=== PATIENT | female | born 1945 | race Caucasian/White ===

== ENCOUNTER 2017-03-19 13:38 | Inpatient (IN) | payer MEDICAID, MEDICARE ==
--- NOTE | 2017-03-19 16:20 | RAD ---
Indication: Weakness and fatigue. Coronary artery disease and chronic obstructive pulmonary disease. Comparison: February 14, 2016 chest radiograph and February 15, 2016 CT. Technique: Upright AP 1545 hours Report: Mild prominence of the interstitial markings. Minimal bilateral midlung zone subsegmental atelectasis. Negative for pleural effusion or pneumothorax. Upper normal heart size. Unremarkable central pulmonary vasculature. IMPRESSION: Minimal bilateral subsegmental atelectasis. Resolution of previous pulmonary edema.
[2017-03-19 16:25] LABS: Hematocrit 23 % (35-47); Hemoglobin 6.9 g/dl (12.0-16.0); Mean Corpuscular HGB Conc 30 g/dl (31-36); Mean Corpuscular Hemoglobin 22 pg (27-31); Mean Corpuscular Volume 71 fL (80-97); Mean Platelet Volume 11 um3 (7.4-10.4); Red Blood Count 3.21 10^6/ul (4.0-5.4); Red Cell Distribution Width 17 % (10.5-15); White Blood Count 11.4 10^3/ul (3.5-10.8)
[2017-03-19 16:26] LABS: Add Diff/Slide Review? Slide Review Added; Comments Flag Yes
[2017-03-19 16:44] LABS: Troponin I 0.02 ng/mL (<0.04)
[2017-03-19 16:54] LABS: Hypochromasia 2+
[2017-03-19 16:55] LABS: Microcytosis 1+
[2017-03-19 17:04] LABS: ALT 7 U/L (7-52); AST 11 U/L (13-39); Alkaline Phosphatase 55 U/L (34-104); Anion Gap 6 mmol/L (2-11); Blood Urea Nitrogen 21 mg/dL (6-24); CO2 Carbon Dioxide 27 mmol/L (22-32); Calcium 9.6 mg/dL (8.6-10.3); Chloride 98 mmol/L (101-111); EGFR African American 47.9 (>60); EGFR Non-African American 37.3 (>60); Globulin 2.9 g/dL (2-4); Glucose 207 mg/dL (70-100); Potassium 4.2 mmol/L (3.5-5.0); Sodium 131 mmol/L (133-145); Total Protein 6.9 g/dL (6.4-8.9)
[2017-03-19 18:05] LABS: Urine Bacteria Absent (Absent); Urine Bilirubin Negative (Negative); Urine Glucose Negative (Negative); Urine Nitrite Negative (Negative)
[2017-03-19] MEDS ORDERED: Dextrose 50% Syringe 50 ML* 25 GM/50 ML SYRINGE IV PUSH PRN (20:30)
[2017-03-19] MEDS ORDERED: Albuterol HFA INHALER* 8 gm MDI INH PRN (20:30)
[2017-03-19] MEDS ORDERED: Albuterol 2.5 MG/3 ML NEB.SOL* (0.083%) INH PRN (20:30)
[2017-03-19] MEDS ORDERED: Fluticasone-Salmeterol 250-50* DISKUS INH SCH (21:00)
[2017-03-19 21:14] LABS: Total Iron Binding Capacity 475 mcg/dL (250-450); Transferrin 339 mg/dL (203-362)
[2017-03-19 21:20] LABS: Ferritin < 10.0 ng/mL (11-307)
[2017-03-19 21:23] LABS: Iron < 15 ug/dL (50-212)
--- NOTE | 2017-03-19 22:02 | ED ---
Jojo Betancur Alok, scribed for Owen Hayes MD on 03/19/17 at 1834 . Complex/Multi-Sys Presentation - HPI Summary HPI Summary: 71 y/o female presents to the ED for weakness, fatigue, and pallor for the past few days. Pt also c/o of tinnitus as well as SOB on and off and a slight cough. Pt denies hematochezia or dark stool although her last BM was 4 days ago. Pt has been eating little recently. Pt denies CP. Pt is not on blood thinners. Pt was last seen by her GI doctor who dx her with iron deficiency. Pt states she felt better after her last iron-transfusion. Pts family also state her vision has been worsening for the past few weeks. SHx includes tobacco smoker. FMHx includes anemia. - History Of Current Complaint Chief Complaint: EDWeakness Time Seen by Provider: 03/19/17 15:43 Hx Obtained From: Patient, Family/Algologist Onset/Duration: Lasting Days, Still Present Timing: Constant Severity Currently: Moderate Severity Initially: Moderate Associated Signs And Symptoms: Positive: Weakness, Other - Fatigue, Pallor. Negative: Chest Pain - Allergies/Home Medications Allergies/Adverse Reactions: Allergies Allergy/AdvReac Type Severity Reaction Status Date / Time Aspirin [ASA] Allergy Nausea And Verified 09/18/16 10:27 Vomiting Cephalosporins Allergy Unknown Verified 09/18/16 10:27 Reaction Details Codeine Allergy Unknown Verified 09/18/16 10:27 Reaction Details Metformin Allergy Nausea And Verified 09/18/16 10:27 Vomiting Penicillins [PCN] Allergy Unknown Verified 09/18/16 10:27 Reaction Details PMH/Surg Hx/FS Hx/Imm Hx Endocrine/Hematology History: Reports: Hx Diabetes Denies: Hx Thyroid Disease Cardiovascular History: Reports: Hx Angina, Hx Cardiac Arrest, Hx Coronary Artery Disease, Hx Hypercholesterolemia, Hx Hypertension, Hx Myocardial Infarction Denies: Hx Congestive Heart Failure, Hx Peripheral Vascular Disease, Hx Valvular Heart Disease Respiratory History: Reports: Hx Asthma, Hx Chronic Obstructive Pulmonary Disease (COPD), Other Respiratory Problems/Disorders - RESP FAILURE 02/2016 GI History: Reports: Hx Gastrointestinal Bleed, Hx Ulcer History: Denies: Hx Renal Disease Musculoskeletal History: Denies: Hx Arthritis, Hx Osteoporosis Sensory History: Denies: Hx Cataracts, Hx Glaucoma Opthamlomology History: Denies: Hx Cataracts, Hx Glaucoma Neurological History: Denies: Hx Headaches, Hx Seizures, Hx Transient Ischemic Attacks (TIA) - Surgical History Surgery Procedure, Year, and Place: Appendectomy as a child. Hysterectomy. Tonsilectomy. Cardiac stents x3 (patient states about 10 years ago) Hx Anesthesia Reactions: No Infectious Disease History: No Infectious Disease History: Denies: Hx Hepatitis, Hx Human Immunodeficiency Virus (HIV), Hx Known/ Suspected VRE, Hx Known/Suspected VRSA, Traveled Outside the [place] in Last 30 Days - Family History Known Family History: Positive: Blood Disorder - anemia - Social History Occupation: Retired Alcohol Use: None Hx Substance Use: No Substance Use Type: Reports: None Hx Tobacco Use: Yes Smoking Status (MU): Light Every Day Tobacco Smoker Type: Cigarettes Amount Used/How Often: 1PPD PRIOR TO JANUARY 2016 Length of Time of Smoking/Using Tobacco: APPROX 50 YEARS Have You Smoked in the Last Year: Yes Review of Systems Positive: Fatigue, Other - Pallor. Negative: Fever, Chills Negative: Erythema Negative: Sore Throat Negative: Chest Pain Positive: Shortness Of Breath, Cough Negative: Abdominal Pain, Vomiting, Nausea Negative: dysuria, hematuria Negative: Myalgia, Edema Negative: Rash Neurological: Other - Negative: Dizziness Positive: Weakness All Other Systems Reviewed And Are Negative: Yes Physical Exam - Summary Physical Exam Summary: Constitutional: Well-developed, Well-nourished, Alert. (-) Distressed Skin: Warm, Dry HENT: Normocephalic; Atraumatic Eyes: Conjunctiva normal Neck: Musculoskeletal ROM normal neck. (-) JVD, (-) Stridor, (-) Tracheal deviation Cardio: Rhythm regular, rate normal, Heart sounds normal; Intact distal pulses; The pedal pulses are 2+ and symmetric. Radial pulses are 2+ and symmetric. (-) Murmur Pulmonary/Chest wall: Effort normal. (-) Respiratory distress, (-) Wheezes, (-) Rales Abd: Soft, (-) Tenderness, (-) Distension, (-) Guarding, (-) Rebound Musculoskeletal: (-) Edema Lymph: (-) Cervical adenopathy Neuro: Alert, Oriented x3 Psych: Mood and affect Normal Digital Rectal Exam: Bloody Stool present Vital Signs On Initial Exam: Initial Vitals Temp Pulse Resp BP Pulse Ox 98.5 F 68 20 153/63 100 03/19/17 13:42 03/19/17 13:42 03/19/17 13:42 03/19/17 13:42 03/19/17 13:42 - [place] Coma Scale Coma Scale Total: 15 Diagnostics - Vital Signs Vital Signs Temp Pulse Resp BP Pulse Ox 03/19/17 17:00 64 16 97 03/19/17 16:16 37 89 03/19/17 15:18 97.3 F 64 20 114/51 100 03/19/17 13:43 98.5 F 70 20 153/63 100 03/19/17 13:42 98.5 F 68 20 153/63 100 - Laboratory Lab Results: Lab Results 03/19/17 03/19/17 03/19/17 Range/Units 16:10 16:10 16:10 WBC 11.4 H (3.5-10.8) 10^3/ul RBC 3.21 L (4.0-5.4) 10^6/ul Hgb 6.9 L (12.0-16.0) g/dl Hct 23 L (35-47) % MCV 71 L (80-97) fL MCH 22 L (27-31) pg MCHC 30 L (31-36) g/dl RDW 17 H (10.5-15) % Plt Count 364 (150-450) 10^3/ul MPV 11 H (7.4-10.4) um3 Neut % (Auto) 76.0 (38-83) % Lymph % (Auto) 14.0 L (25-47) % Gila % (Auto) 7.3 (1-9) % Eos % (Auto) 1.1 (0-6) % Baso % (Auto) 1.6 (0-2) % Absolute Neuts (auto) 8.7 H (1.5-7.7) 10^3/ul Absolute Lymphs (auto) 1.6 (1.0-4.8) 10^3/ul Absolute Monos (auto) 0.8 (0-0.8) 10^3/ul Absolute Eos (auto) 0.1 (0-0.6) 10^3/ul Absolute Basos (auto) 0.2 (0-0.2) 10^3/ul Absolute Nucleated RBC 0 10^3/ul Nucleated RBC % 0 Normal RBC Morphology Not Reportable Hypochromasia 2+ Microcytosis 1+ Elliptocytes 1+ INR (Anticoag Therapy) 0.98 (0.89-1.11) APTT 30.1 (26.0-36.3) seconds Sodium 131 L (133-145) mmol/L Potassium 4.2 (3.5-5.0) mmol/L Chloride 98 L (101-111) mmol/L Carbon Dioxide 27 (22-32) mmol/L Anion Gap 6 (2-11) mmol/L BUN 21 (6-24) mg/dL Creatinine 1.40 H (0.51-0.95) mg/dL Est GFR ( Amer) 47.9 (>60) Est GFR (Non-Af Amer) 37.3 (>60) BUN/Creatinine Ratio 15.0 (8-20) Glucose 207 H (70-100) mg/dL Lactic Acid (0.5-2.0) mmol/L Calcium 9.6 (8.6-10.3) mg/dL Total Bilirubin 0.40 (0.2-1.0) mg/dL AST 11 L (13-39) U/L ALT 7 (7-52) U/L Alkaline Phosphatase 55 (34-104) U/L Troponin I 0.02 (<0.04) ng/mL Total Protein 6.9 (6.4-8.9) g/dL Albumin 4.0 (3.2-5.2) g/dL Globulin 2.9 (2-4) g/dL Albumin/Globulin Ratio 1.4 (1-3) Urine Color Urine Appearance Urine pH (5-9) Ur Specific [place] (1.010-1.030) Urine Protein (Negative) Urine Ketones (Negative) Urine Blood (Negative) Urine Nitrate (Negative) Urine Bilirubin (Negative) Urine Urobilinogen (Negative) Ur Leukocyte Esterase (Negative) Urine WBC (Auto) (Absent) Urine RBC (Auto) (Absent) Ur Squamous Epith Cells (Absent) Urine Bacteria (Absent) Urine Glucose (Negative) Blood Type Antibody Screen Crossmatch 03/19/17 03/19/17 03/19/17 Range/Units 16:10 16:10 17:45 WBC (3.5-10.8) 10^3/ul RBC (4.0-5.4) 10^6/ul Hgb (12.0-16.0) g/dl Hct (35-47) % MCV (80-97) fL MCH (27-31) pg MCHC (31-36) g/dl RDW (10.5-15) % Plt Count (150-450) 10^3/ul MPV (7.4-10.4) um3 Neut % (Auto) (38-83) % Lymph % (Auto) (25-47) % Gila % (Auto) (1-9) % Eos % (Auto) (0-6) % Baso % (Auto) (0-2) % Absolute Neuts (auto) (1.5-7.7) 10^3/ul Absolute Lymphs (auto) (1.0-4.8) 10^3/ul Absolute Monos (auto) (0-0.8) 10^3/ul Absolute Eos (auto) (0-0.6) 10^3/ul Absolute Basos (auto) (0-0.2) 10^3/ul Absolute Nucleated RBC 10^3/ul Nucleated RBC % Normal RBC Morphology Hypochromasia Microcytosis Elliptocytes INR (Anticoag Therapy) (0.89-1.11) APTT (26.0-36.3) seconds Sodium (133-145) mmol/L Potassium (3.5-5.0) mmol/L Chloride (101-111) mmol/L Carbon Dioxide (22-32) mmol/L Anion Gap (2-11) mmol/L BUN (6-24) mg/dL Creatinine (0.51-0.95) mg/dL Est GFR ( Amer) (>60) Est GFR (Non-Af Amer) (>60) BUN/Creatinine Ratio (8-20) Glucose (70-100) mg/dL Lactic Acid 1.1 (0.5-2.0) mmol/L Calcium (8.6-10.3) mg/dL Total Bilirubin (0.2-1.0) mg/dL AST (13-39) U/L ALT (7-52) U/L Alkaline Phosphatase (34-104) U/L Troponin I (<0.04) ng/mL Total Protein (6.4-8.9) g/dL Albumin (3.2-5.2) g/dL Globulin (2-4) g/dL Albumin/Globulin Ratio (1-3) Urine Color Straw Urine Appearance Clear Urine pH 6.0 (5-9) Ur Specific [place] 1.003 L (1.010-1.030) Urine Protein Negative (Negative) Urine Ketones Negative (Negative) Urine Blood 1+ H (Negative) Urine Nitrate Negative (Negative) Urine Bilirubin Negative (Negative) Urine Urobilinogen Negative (Negative) Ur Leukocyte Esterase Trace H (Negative) Urine WBC (Auto) Trace(0-5/hpf) (Absent) Urine RBC (Auto) Trace(0-2/hpf) (Absent) Ur Squamous Epith Cells Present H (Absent) Urine Bacteria Absent (Absent) Urine Glucose Negative (Negative) Blood Type B Positive Antibody Screen Pending Crossmatch See Detail Result Diagrams: 03/19/17 16:10 03/19/17 16:10 Lab Statement: Any lab studies that have been ordered have been reviewed, and results considered in the medical decision making process. - Radiology CXR Xray Interpretation: Positive (See Comments) - IMPRESSION: Minimal bilateral subsegmental atelectasis. Resolution of previous pulmonary edema. Radiology Interpretation Completed By: Radiologist - EKG 1348 Cardiac Rate: NL - 72 bpm EKG Interpretation: No STEMI. T-wave inversions/ST depression unchanged from 2016 Complex Multi-Symp Course/Dx Course Of Treatment: Stool guaiac negative. - Diagnoses Provider Diagnoses: Symptomatic anemia - Physician Notifications Discussed Care Of Patient With: Dr. Huitron (Hospitalist) @ 1924 - Will admit pt Discharge - Discharge Plan Condition: Stable Disposition: ADMITTED TO [facility] Referrals: Nathan Lopez MD [Primary Care Provider] - The documentation as recorded by the Jojo mejia Alok accurately reflects the service I personally performed and the decisions made by me, Owen Hayes MD.
--- NOTE | 2017-03-19 23:09 | HP ---
HOSPITAL MEDICINE HISTORY AND PHYSICAL: DATE OF ADMISSION: 03/19/17 PRIMARY CARE PHYSICIAN: Dr. Lopez. ATTENDING PHYSICIAN: Dr. Aj Mota*(dictation provided by Cinthya Scott NP). CHIEF COMPLAINT: Weakness and "not feeling well." HISTORY OF PRESENT ILLNESS: Ms. Rao is a 71-year-old female with a past medical history of LA with stent placement, noninsulin dependent diabetes, hypertension, COPD and chronic anemia without a clear source of bleeding who presents to the hospital with concern for lightheadedness and not feeling well. Ms. Rao has a chronic anemia. Her last known hemoglobin from our record was from 04/06/16 at which time it was 8.1. This is fairly consistent where she had been across the 2016 which she ran somewhere between 7 and 10. She was seen here at our hospital and had an EGD on 02/07/16, a colonoscopy on 02/23/16 and a gastroscopy on 09/13/16. No clear leading sources were found. The patient did have some gastritis. This certainly did not explain the level of her anemia. The patient was placed on iron therapy, but she did not tolerate that well and then went on take iron IV. She said she had 2 outpatient effusions of iron. Her last check for her hemoglobin was in November with Dr. Lopez. She said she can quite quite remember exactly but thinks that Dr. Lopez mentioned that her hemoglobin was a little bit down. She has not followed up recently with any laboratory checks or any IV infusions. She denies any dark tarry stools. She has had no vomiting. No blood in the stool at all. She reports that she was feeling her normal state of health until Sunday when she started to just feel unwell. She reports being lightheaded and little bit dizzy at times. She states she does not really feel these symptoms at rest, but does feel them when she gets up to move around. She also reports shortness of breath but states that this is at baseline. She denies chest pain. She denies nausea or abdominal pain. She states she is constipated at baseline with the last bowel movement last week. In the emergency room, Ms. Gannon had a hemoglobin, which was 6.9 and again her last hemoglobin was 8.1. Her creatinine is up a tiny bit from her last visit at 1.40. The remainder of her workup is unremarkable. PAST MEDICAL HISTORY: 1. Type 2 diabetes, noninsulin dependent. 2. Non-ST elevation LA. 3. Coronary artery disease with stent x3 over 10 years ago. 4. Hypertension. 5. Hyperlipidemia. 6. COPD. PAST SURGICAL HISTORY: 1. Tonsillectomy. 2. Appendectomy. 3. Hysterectomy for fibroid uterus. MEDICATIONS: 1. Aspirin 81 mg p.o. daily. 2. Glipizide 2.5 mg p.o. daily. 3. Albuterol nebulizer p.r.n. 4. Albuterol metered dose inhaler p.r.n. 5. Atorvastatin 10 mg p.o. daily. 6. Fluticasone/salmeterol 250/50 one puff inhaled b.i.d. 7. Furosemide 40 mg p.o. daily. 8. Lisinopril 20 mg p.o. daily. 9. Pantoprazole 40 mg p.o. daily. 10. Spironolactone 25 mg p.o. daily. ALLERGIES: ASPIRIN, CEPHALOSPORINS, CODEINE, METFORMIN and PENICILLINS. FAMILY HISTORY: The patient reports her mother at age 90. She had heart disease and she was anemic. She did have a tumor on her pancreas as well. Father had supranuclear palsy and in his 90s. SOCIAL HISTORY: The patient is a continued smoker. She says she does not smoke everyday but she smoked since she was a teenager. She denies any alcohol or drug abuse. She lives alone. She states that her daughter, Teresa, would be her healthcare proxy. REVIEW OF SYSTEMS: A 14-point review of systems was completed with Ns. Rao and all those not mentioned above were negative. PHYSICAL EXAMINATION GENERAL: Ms. Rao is sitting in the bed. She is in no acute distress. She is calm and cooperative with my examination. VITAL SIGNS: Temperature 97.3, heart rate 65, respiratory rate 18, O2 saturation 100% on room air, blood pressure 103/46. LUNGS: Clear to auscultation bilaterally with no accessory muscle use and good aeration. HEART: S1, S2. No murmur, rub or gallop and regular. ABDOMEN: Soft, nontender with bowel sounds positive x4. EXTREMITIES: No cyanosis or edema. NEUROLOGIC: She is alert. She is oriented x3. She moves all extremities equally. There is no facial asymmetry or focal weakness. Extraocular movements are intact. SKIN: Intact. DIAGNOSTIC STUDIES/LABORATORY DATA: WBC 11.4, hemoglobin 6.9, hematocrit 23, platelet count 364. INR 0.98. Sodium 131, potassium 4.2, chloride 98, serum bicarbonate 27, BUN 21, creatinine 1.40, glucose 207. Urine shows trace leuk esterase but no bacteria and positive for squamous cells. Chest x-ray shows no acute intrathoracic process. EKG shows a sinus rhythm. He does have T-wave inversions most notably in the V leads, but this is unchanged from previous. ASSESSMENT: Ms. Rao is a 71-year-old female with a past medical history of noninsulin dependent diabetes, coronary artery disease with stent placement and chronic obstructive pulmonary disease as well as ongoing chronic anemia of unclear etiology who presents to the hospital today with worsening anemia, which is symptomatic with lightheadedness. Our plans are for observation in the hospital for the followin. Symptomatic anemia. The patient's lightheadedness is likely related to her hemoglobin being low today at 6.9. I do not see any ultimate cause for her vague symptoms of feeling unwell and feeling lightheaded with mobility. Our plans will be to transfuse 1 unit of packed red blood cells. Also check her orthostatic vital signs. Her blood pressures are little on the lower side. Plan to hold lisinopril, spironolactone and Lasix. The patient did have a guaiac stool, which was negative but given her severe constipation, I questioned the adequacy of the sample and will seek to obtain a second sample if the patient actually has a bowel movement. The patient has had extensive workup with multiple endoscopies just last year and I am not sure that further endoscopies would be revealing but depending on clinical course, we can involve Gastroenterology again tomorrow for their recommendations. However, I think if the patient is asymptomatic, she can be discharged home to follow up with them outpatient and likely to resume iron supplementation. 2. Diabetes. Plan to hold glipizide and she will have lispro sliding scale insulin with consistent carbohydrate diet. 3. Hypertension. Again, the patient's blood pressure is running relatively low with a systolic in the 90s to 100s. Plan to hold her blood pressure medications and this can be resumed tomorrow if she is more stable. We will give her normal saline in addition to her 1 L of blood given her elevated creatinine and low blood pressure. 4. Acute kidney injury. The patient's creatinine is up baseline to 1.4, but she has not had it checked in about a year. Plan to hydrate and recheck in the a.m. 5. Chronic obstructive pulmonary disease. No evidence of exacerbation. Plan to continue nebulizers and metered dose inhaler as well as her fluticasone/ salmeterol. 6. DVT prophylaxis with SCDs only in this patient with concern of bleeding. 7. Coronary artery disease. Plan to hold aspirin, metoprolol, and lisinopril in the setting of concern for bleeding and hypotension. 8. Code status is full code. TIME SPENT: Approximately 60 minutes were spent on the admission of this patient, more than half time spent with her at the bedside reviewing the events leading up to this hospitalization, performing the physical examination, and reviewing the plan of care. CINTHYA SCOTT NP CC: Dr. Lopez* [id number]/CPS #: [id number] [place]
[2017-03-19] MEDS: NS 0.9% 1000 ML* 1,000 ML IV SCH (23:13)
[2017-03-20 05:02] LABS: Hematocrit 24 % (35-47); Hemoglobin 7.5 g/dl (12.0-16.0)
[2017-03-20 05:09] LABS: Comments Flag Yes
[2017-03-20 05:17] LABS: BUN/Creatinine Ratio 16.4 (8-20); EGFR African American 47.9 (>60); EGFR Non-African American 37.3 (>60); Potassium 4.1 mmol/L (3.5-5.0)
[2017-03-20] MEDS: NS 0.9% 1000 ML* 1,000 ML IV SCH ×2 (07:30→16:22)
[2017-03-20] MEDS ORDERED: Lisinopril TAB* 10 MG PO SCH (09:00)
[2017-03-20] MEDS ORDERED: Furosemide TAB* 40 MG PO SCH (09:00)
[2017-03-20] MEDS: Mometasone/Formoter 200/5 MDI INH SCH ×2 (09:17→22:09)
[2017-03-20] MEDS: Insulin LISPRO* 1 UNITS UNIT SUBCUT SCH ×3 (09:59→17:25)
[2017-03-20] MEDS: Omeprazole CAP* 20 MG PO SCH (10:00)
[2017-03-20] MEDS: Atorvastatin* 10 MG TAB PO SCH (10:00)
--- NOTE | 2017-03-20 14:45 | PN ---
Subjective Date of Service: 03/20/17 Interval History: Patient seen and examined at bedside. Pt states that she feels a little better today, but continues to have lightheadedness and shortness of breath when she gets up. She also feels like she may be getting a chest cold, and reports a cough that is non-productive. Denies fever, chills, chest discomfort, N/V/D. Pt denies any signs of bleeding, such as rectal bleeding, vaginal bleeding, or bloody nose. Pt denies recent travel. Tele: Sinus rhythm, rate 70-80's. Family History: Unchanged from Admission Social History: Unchanged from Admission Past Medical History: Unchanged from Admission Objective Active Medications: Albuterol (Ventolin 2.5 Mg/3 Ml Neb.Lucrecia*) 1.25 mg INH Q4HR PRN Reason: SOB/ WHEEZING Albuterol (Ventolin Hfa Inhaler*) 2 puff INH Q6H PRN Reason: SOB/WHEEZING Atorvastatin Calcium (Lipitor*) 10 mg PO DAILY [facility] Dextrose (D50w Syringe 50 Ml*) 12.5 gm IV PUSH .FOR FS < 60 - SS PRN Reason: FS < 60 Sodium Chloride (Ns 0.9% 1000 Ml*) 1,000 mls @ 125 mls/hr IV PER RATE [facility] Insulin Human Lispro (Humalog*) 0 units SUBCUT AC [facility] Reason: Protocol Mometasone Furoate/Formoterol Fumar (Dulera 200/5 Mdi*) 2 puff INH BID RASHAAD Omeprazole (Prilosec Cap*) 20 mg PO DAILY@0730 [facility] Vital Signs 03/19/17 03/19/17 03/19/17 20:30 21:00 21:30 Temperature Pulse Rate 65 65 65 Respiratory 19 20 17 Rate Blood Pressure 105/59 95/67 111/49 (mmHg) O2 Sat by Pulse 100 99 99 Oximetry 03/19/17 03/19/17 03/20/17 21:45 23:33 00:00 Temperature 98.1 F 97.9 F 97.8 F Pulse Rate 69 73 78 Respiratory 16 20 22 Rate Blood Pressure 124/51 110/55 107/45 (mmHg) O2 Sat by Pulse 99 98 97 Oximetry 03/20/17 03/20/17 03/20/17 02:30 03:25 04:45 Temperature 97.9 F 98.6 F 98.5 F Pulse Rate 76 86 80 Respiratory 20 16 16 Rate Blood Pressure 112/48 121/53 127/48 (mmHg) O2 Sat by Pulse 95 96 98 Oximetry 03/20/17 03/20/17 03/20/17 04:48 04:49 07:39 Temperature 99.0 F Pulse Rate 84 87 79 Respiratory 16 Rate Blood Pressure 140/64 149/54 131/52 (mmHg) O2 Sat by Pulse 97 Oximetry 03/20/17 03/20/17 09:18 12:01 Temperature 97.6 F Pulse Rate 80 76 Respiratory 20 16 Rate Blood Pressure 137/49 (mmHg) O2 Sat by Pulse 97 99 Oximetry Oxygen Devices in Use Now: None Appearance: NAD, laying in bed Eyes: No Scleral Icterus, PERRLA Ears/Nose/Mouth/Throat: Mucous Membranes Moist Respiratory: Symmetrical Chest Expansion and Respiratory Effort, Clear to Auscultation Cardiovascular: NL Sounds; No Murmurs; No JVD, RRR Abdominal: NL Sounds; No Tenderness; No Distention Extremities: No Edema Result Diagrams: 03/20/17 04:14 03/20/17 04:14 Additional Lab and Data: Assess/Plan/Problems-Billing Assessment: Ms. Rao is a 71 yo female with PMH significant for DM< CAD, COPD and chronic anemia who presented to the emergency room for weakness and was found to have worsening anemia. - Patient Problems (1) Microcytic anemia Code(s): D50.9 - IRON DEFICIENCY ANEMIA, UNSPECIFIED SNOMED Code(s): 389342171 Comment: - Acute on Chronic SPRING, unclear etiology - Last HH from PCP 11/28/16 - - Received 1 unit RBCs - Pt continues to be symptomatic with lightheadedness and mild shortness of breath - Denies signs of bleeding - GI consult pending - Will give another unit of RBCs today and IV Venofer (2) Chronic kidney disease (CKD) Code(s): N18.9 - CHRONIC KIDNEY DISEASE, UNSPECIFIED SNOMED Code(s): 228137914 Comment: - Creatinine 1.4 - Labs from PCP show creatinine 1.5 11/2016 - Suspect Pt is at her new baseline (3) Constipation Code(s): K59.00 - CONSTIPATION, UNSPECIFIED SNOMED Code(s): 49169292 Comment: - Bowel regime (4) Type 2 diabetes mellitus Comment: - Hold glipizide - Continue lispro SS and monitor. (5) HTN (hypertension) Code(s): I10 - ESSENTIAL (PRIMARY) HYPERTENSION SNOMED Code(s): 65988344 Comment: - Normotensive - Resume lisinopril in the AM (6) CAD (coronary artery disease) Code(s): I25.10 - ATHSCL HEART DISEASE OF [place] CORONARY ARTERY W/O ANG PCTRS SNOMED Code(s): 73383682 Comment: - Continue Atorvastatin and Metolprolol - Continue to hold ASA in setting of possible bleeding (7) COPD (chronic obstructive pulmonary disease) Code(s): J44.9 - CHRONIC OBSTRUCTIVE PULMONARY DISEASE, UNSPECIFIED SNOMED Code(s): 51656526 Comment: - No ecidence of exacerbation at this time - Continue Dulera and Spiriva with PRN Albuterol. (8) Congestive heart failure (CHF) Code(s): I50.9 - HEART FAILURE, UNSPECIFIED SNOMED Code(s): 70659980 Comment: - EF > 65% 02/2016 - Diuresis on hold due to hypotension - Will resume spironolactone and furosemide in AM if blood pressures allow - Strict I+O and daily weights (9) DVT prophylaxis Code(s): ELX8537 - SNOMED Code(s): 269997393 Comment: - Pharmacological prophylaxis contraindicated in the setting of possible bleeding - SCD to bilateral LE. - Encourage ambulation. (10) Full code status Code(s): Z78.9 - OTHER SPECIFIED HEALTH STATUS SNOMED Code(s): 808801462 Status and Disposition: OBV to Inpatient. Pt continues to need further work up for her anemia. Discharge to home when medically stable.
[2017-03-20] MEDS ORDERED: Polyethylene Glycol 3350* 17 GM PACKET PO PRN (15:50)
[2017-03-20] MEDS ORDERED: Iron Sucrose* 200 MG in NS 0.9% 250 ML* 250 ML IVPB ONE (16:00)
[2017-03-20] MEDS ORDERED: Spironolactone TAB* 25 MG PO SCH (16:00)
[2017-03-20] MEDS: Magnesium Hydroxide LIQ* 30 ML UDC PO PRN (16:20)
[2017-03-20] MEDS ORDERED: Spiriva Inhaler DEVICE* 1 EACH DEVICE INH ONE (18:00)
[2017-03-20] MEDS: Metoprolol Tartrate TAB* 50 mg PO SCH (20:31)
[2017-03-21 04:52] LABS: Hematocrit 26 % (35-47); Hemoglobin 8.2 g/dl (12.0-16.0)
[2017-03-21 05:02] LABS: BUN/Creatinine Ratio 21.3 (8-20); EGFR African American 64.7 (>60); EGFR Non-African American 50.3 (>60); Potassium 4.3 mmol/L (3.5-5.0)
[2017-03-21] MEDS: Mometasone/Formoter 200/5 MDI INH SCH ×2 (07:48→20:38)
[2017-03-21] MEDS: Tiotropium CAP.INH* CAP.INH/18 MCG INH SCH (07:49)
[2017-03-21] MEDS ORDERED: Ondansetron INJ* 2 MG/ML VIAL IV PRN (08:06)
[2017-03-21] MEDS: Insulin LISPRO* 1 UNITS UNIT SUBCUT SCH ×3 (08:38→16:42)
[2017-03-21] MEDS: Atorvastatin* 10 MG TAB PO SCH (08:41)
[2017-03-21] MEDS: Furosemide TAB* 40 MG PO SCH (08:41)
[2017-03-21] MEDS: Metoprolol Tartrate TAB* 50 mg PO SCH ×2 (08:41→19:55)
[2017-03-21] MEDS: Lisinopril TAB* 10 MG PO SCH (08:41)
[2017-03-21] MEDS: Omeprazole CAP* 20 MG PO SCH (08:41)
--- NOTE | 2017-03-21 10:32 | CONS ---
CONSULTATION REPORT: DATE OF CONSULT: 03/21/17 REASON FOR CONSULT: Iron-deficiency anemia. NARRATIVE: Ms. Rao is a 71-year-old woman with a history of coronary disease, on the baby aspirin; COPD with active tobacco use; and diabetes. She was first noted about a year ago to be anemic when she presented with what seemed to be a GI bleed. In January 2016, she underwent an upper endoscopy, which showed duodenal ulcers. Despite proper treatment with PPIs, she remained anemic. She thereafter last year underwent a colonoscopy where a small polyp was removed, but no other abnormality was detected. She was last seen in my office in August 2016 when arrangements were made for her to get IV iron as she was intolerant to p.o. iron. She states that she got 2 infusions, felt quite good, and had no subsequent infusions. 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 However, in the last several weeks, she has had progressive fatigue and some shortness of breath. She presented to our institution 2 days ago with a hemoglobin of 6.9. Other pertinent data on this admission included iron saturation of 3%, ferritin less than 10, MCV of 71. She has been transfused 2 units of packed red blood cells and on followup blood tests this morning, her hemoglobin is 8.2. She had a stool that was Hemoccult negative. She states that she has been constipated and has not noticed any black stools or rectal bleeding. She denies any abdominal pain, NSAID use, and her only antiplatelet agent has been a baby aspirin. PAST MEDICAL HISTORY: Does include coronary artery disease with stents years ago, diabetes, tobacco use, COPD, obesity, and hypertension. PAST SURGICAL HISTORY: Includes a hysterectomy and appendectomy. ADMISSION MEDICINES: 1. Baby aspirin. 2. Glipizide. 3. Albuterol inhaler as needed. 4. Atorvastatin. 5. Fluticasone as needed. 6. Lasix. 7. Lisinopril. 8. Pantoprazole. 9. Spironolactone. FAMILY HISTORY: Notable for mother with pancreatic cancer, but no other GI malignancies. REVIEW OF SYSTEMS: Her weight and appetite have been good. She denies any heartburn, dysphagia, nausea, or vomiting. PHYSICAL EXAMINATION: General: She is an elderly woman, looking older than stated age, obese, but in no acute distress. Vital signs: Temperature is 98.8 , blood pressure 180/71, and heart rate is 85 and regular. She is mildly pale. There are no telangiectasias. Lungs reveal some expiratory wheezing. Cardiac exam reveals distant heart sounds, but a regular rhythm. Abdomen is obese and soft without any siobhan tenderness. DIAGNOSTIC STUDIES/LAB DATA: Additional data includes a platelet count of 364, 000. INR 0.98. BUN of 23 and creatinine of 1.4. Albumin of 4. IMPRESSION: A 71-year-old woman with a persistent iron-deficiency anemia, periodically requiring transfusion with no discernible cause on fairly recent upper endoscopy and colonoscopy. She is currently guaiac-negative, but has been guaiac- positive in the past. A strong possibility would be a small bowel source for GI blood loss either AVM, polyp or growth and that was discussed with the patient. I do believe the next appropriate step would be capsule endoscopy study and I have explained that to the patient including risks such as pill non-passage. She would be accepting of this. I would recommend discharge and scheduling a pill endoscopy to be done as an outpatient and our office will contact her to arrange that. CC: Nathan Lopez MD* [id number]/CPS #: [id number] [place]
--- NOTE | 2017-03-21 11:45 | PN ---
Subjective Date of Service: 03/21/17 Interval History: Patient seen and examined at bedside. Pt states that she continues to intermittent dizziness when up, but this has improved. Also reports mild shortness of breath, similar to her baseline. Denies fever, chills, chest discomfort, V/D. Pt continues to report nausea and constipation. Pt encouraged to take bowel medication. Tele: Sinus rhythm w/ PVCs, rate 70-80's. Family History: Unchanged from Admission Social History: Unchanged from Admission Past Medical History: Unchanged from Admission Objective Active Medications: Albuterol (Ventolin 2.5 Mg/3 Ml Neb.Lucrecia*) 1.25 mg INH Q4HR PRN Reason: SOB/ WHEEZING Albuterol (Ventolin Hfa Inhaler*) 2 puff INH Q6H PRN Reason: SOB/WHEEZING Atorvastatin Calcium (Lipitor*) 10 mg PO DAILY [facility] Dextrose (D50w Syringe 50 Ml*) 12.5 gm IV PUSH .FOR FS < 60 - SS PRN Reason: FS < 60 Furosemide (Lasix Tab*) 40 mg PO DAILY [facility] Insulin Human Lispro (Humalog*) 0 units SUBCUT AC [facility] Reason: Protocol Lisinopril (Prinivil Tab*) 20 mg PO DAILY [facility] Magnesium Hydroxide (Milk Of Magnesia Liq*) 30 ml PO Q6H PRN Reason: CONSTIPATION Metoprolol Tartrate (Lopressor Tab*) 50 mg PO BID [facility] Mometasone Furoate/Formoterol Fumar (Dulera 200/5 Mdi*) 2 puff INH BID [facility] Omeprazole (Prilosec Cap*) 20 mg PO DAILY@0730 [facility] Ondansetron HCl (Zofran Inj*) 4 mg IV Q6H PRN Reason: NAUSEA Polyethylene Glycol/Electrolytes (Miralax*) 17 gm PO DAILY PRN Reason: CONSTIPATION Spironolactone (Aldactone Tab*) 25 mg PO 1600 [facility] Tiotropium [place] (Spiriva Cap.Inh*) 1 cap INH DAILY [facility] Vital Signs 03/20/17 03/20/17 03/20/17 18:31 19:26 20:00 Temperature 99.0 F 98.8 F Pulse Rate 78 73 Respiratory 16 18 18 Rate Blood Pressure 149/57 130/54 (mmHg) O2 Sat by Pulse 99 98 Oximetry 03/20/17 03/21/17 03/21/17 23:45 04:00 05:41 Temperature 99.0 F 98.6 F Pulse Rate 77 83 84 Respiratory 24 16 25 Rate Blood Pressure 157/58 168/77 170/90 (mmHg) O2 Sat by Pulse 94 93 93 Oximetry 03/21/17 03/21/17 07:10 07:57 Temperature 98.8 F Pulse Rate 91 Respiratory 16 17 Rate Blood Pressure 180/71 (mmHg) O2 Sat by Pulse 92 Oximetry Oxygen Devices in Use Now: None Appearance: NAD, laying in bed Eyes: No Scleral Icterus, PERRLA Ears/Nose/Mouth/Throat: Mucous Membranes Moist Respiratory: Symmetrical Chest Expansion and Respiratory Effort, Clear to Auscultation - , diminished Cardiovascular: NL Sounds; No Murmurs; No JVD, RRR Abdominal: NL Sounds; No Tenderness; No Distention Extremities: No Edema Skin: No Rash or Ulcers Neurological: Alert and Oriented x 3, NL Muscle Strength and Tone Lines/Tubes/Other Access: Clean, Dry and Intact Peripheral IV - site benign Nutrition: Taking PO's Result Diagrams: 03/21/17 16:09 03/21/17 04:11 Additional Lab and Data: Microbiology and Other Data: Microbiology 03/20/17 19:39 Transfusion Reaction Culture - Preliminary Blood Bag Culture Under Incubation Transfusion Reaction Gram Stain - Final Assess/Plan/Problems-Billing Assessment: Ms. Rao is a 71 yo female with PMH significant for DM< CAD, COPD and chronic anemia who presented to the emergency room for weakness and was found to have worsening anemia. - Patient Problems (1) Microcytic anemia Code(s): D50.9 - IRON DEFICIENCY ANEMIA, UNSPECIFIED SNOMED Code(s): 623040704 Comment: - Acute on Chronic, unclear etiology - Last HH from PCP 11/28/16 - - Received 2 unit RBCs - Pt continues to be symptomatic with lightheadedness and mild shortness of breath, improved - No signs of bleeding - GI consult, appreciate input - IV Venofer (2) Chronic kidney disease (CKD) Code(s): N18.9 - CHRONIC KIDNEY DISEASE, UNSPECIFIED SNOMED Code(s): 776564704 Comment: - Creatinine 1.4 - Labs from PCP show creatinine 1.5 11/2016 - Suspect Pt is at her new baseline (3) Constipation Code(s): K59.00 - CONSTIPATION, UNSPECIFIED SNOMED Code(s): 75202668 Comment: - Bowel regime (4) Type 2 diabetes mellitus Comment: - Hold glipizide - Continue lispro SS and monitor. (5) HTN (hypertension) Code(s): I10 - ESSENTIAL (PRIMARY) HYPERTENSION SNOMED Code(s): 96680407 Comment: - Hypertensive - Resume lisinopril (6) CAD (coronary artery disease) Code(s): I25.10 - ATHSCL HEART DISEASE OF [place] CORONARY ARTERY W/O ANG PCTRS SNOMED Code(s): 38648271 Comment: - Continue Atorvastatin and Metolprolol - Continue to hold ASA in setting of possible bleeding (7) COPD (chronic obstructive pulmonary disease) Code(s): J44.9 - CHRONIC OBSTRUCTIVE PULMONARY DISEASE, UNSPECIFIED SNOMED Code(s): 08339364 Comment: - No ecidence of exacerbation at this time - Continue Dulera and Spiriva with PRN Albuterol. (8) Congestive heart failure (CHF) Code(s): I50.9 - HEART FAILURE, UNSPECIFIED SNOMED Code(s): 47395599 Comment: - EF > 65% 02/2016 - Resume spironolactone and furosemide - Strict I+O and daily weights (9) DVT prophylaxis Code(s): ZIU8027 - SNOMED Code(s): 074940430 Comment: - Pharmacological prophylaxis contraindicated in the setting of possible bleeding - SCD to bilateral LE. - Encourage ambulation. (10) Full code status Code(s): Z78.9 - OTHER SPECIFIED HEALTH STATUS SNOMED Code(s): 516473119 Status and Disposition: Inpatient. Discharge to home when medically stable, possibly later today.
[2017-03-21] MEDS ORDERED: Iron Sucrose* 200 MG in NS 0.9% 250 ML* 250 ML IVPB ONE (13:00)
[2017-03-21 16:15] LABS: Hematocrit 25 % (35-47)
[2017-03-21] MEDS: Spironolactone TAB* 25 MG PO SCH (16:41)
[2017-03-22 04:49] LABS: Hematocrit 23 % (35-47); Hemoglobin 7.2 g/dl (12.0-16.0)
--- NOTE | 2017-03-22 08:24 | PN ---
Subjective Date of Service: 03/22/17 Interval History: Patient seen and examined at bedside. Pt states that she is feeling better this morning. Denies fever, chills, lightheadedness or dizziness, shortness of breath , chest discomfort, N/V/D. Pt states that she has been up and ambulating. Denies signs of bleeding. Pt continues to have constipation. Tele: Sinus rhythm, rate 70's. Family History: Unchanged from Admission Social History: Unchanged from Admission Past Medical History: Unchanged from Admission Objective Active Medications: Albuterol (Ventolin 2.5 Mg/3 Ml Neb.Lucrecia*) 1.25 mg INH Q4HR PRN Reason: SOB/ WHEEZING Albuterol (Ventolin Hfa Inhaler*) 2 puff INH Q6H PRN Reason: SOB/WHEEZING Atorvastatin Calcium (Lipitor*) 10 mg PO DAILY [facility] Dextrose (D50w Syringe 50 Ml*) 12.5 gm IV PUSH .FOR FS < 60 - SS PRN Reason: FS < 60 Furosemide (Lasix Tab*) 40 mg PO DAILY [facility] Insulin Human Lispro (Humalog*) 0 units SUBCUT AC [facility] Reason: Protocol Lisinopril (Prinivil Tab*) 20 mg PO DAILY [facility] Magnesium Hydroxide (Milk Of Magnesia Liq*) 30 ml PO Q6H PRN Reason: CONSTIPATION Metoprolol Tartrate (Lopressor Tab*) 50 mg PO BID [facility] Mometasone Furoate/Formoterol Fumar (Dulera 200/5 Mdi*) 2 puff INH BID [facility] Omeprazole (Prilosec Cap*) 20 mg PO DAILY@0730 [facility] Ondansetron HCl (Zofran Inj*) 4 mg IV Q6H PRN Reason: NAUSEA Polyethylene Glycol/Electrolytes (Miralax*) 17 gm PO DAILY PRN Reason: CONSTIPATION Spironolactone (Aldactone Tab*) 25 mg PO 1600 [facility] Tiotropium [place] (Spiriva Cap.Inh*) 1 cap INH DAILY [facility] Vital Signs 03/21/17 03/21/17 03/21/17 11:13 15:16 19:38 Temperature 98.8 F 98.4 F 98.3 F Pulse Rate 73 65 70 Respiratory 16 17 16 Rate Blood Pressure 126/50 109/50 106/47 (mmHg) O2 Sat by Pulse 96 96 96 Oximetry 03/21/17 03/21/17 03/21/17 20:00 20:42 23:15 Temperature 99.5 F Pulse Rate 70 77 Respiratory 20 16 Rate Blood Pressure 122/65 (mmHg) O2 Sat by Pulse 96 95 Oximetry 03/22/17 03/22/17 03/22/17 00:16 04:29 07:48 Temperature 99.5 F 97.7 F 97.4 F Pulse Rate 77 68 65 Respiratory 16 16 18 Rate Blood Pressure 122/65 129/46 132/49 (mmHg) O2 Sat by Pulse 95 96 95 Oximetry Oxygen Devices in Use Now: None Appearance: NAD, sitting up on the side of the bed Eyes: No Scleral Icterus, PERRLA Ears/Nose/Mouth/Throat: Mucous Membranes Moist Respiratory: Symmetrical Chest Expansion and Respiratory Effort, Clear to Auscultation - , diminished. Expiratory wheezing anterior Cardiovascular: NL Sounds; No Murmurs; No JVD, RRR Abdominal: NL Sounds; No Tenderness; No Distention Extremities: No Edema Skin: No Rash or Ulcers Neurological: Alert and Oriented x 3, NL Muscle Strength and Tone Lines/Tubes/Other Access: Clean, Dry and Intact Peripheral IV - site benign Nutrition: Taking PO's Result Diagrams: 03/22/17 04:15 03/21/17 04:11 Additional Lab and Data: Microbiology and Other Data: Microbiology 03/20/17 19:39 Transfusion Reaction Culture - Preliminary Blood Bag Culture Under Incubation Transfusion Reaction Gram Stain - Final Assess/Plan/Problems-Billing Assessment: Ms. Rao is a 71 yo female with PMH significant for DM< CAD, COPD and chronic anemia who presented to the emergency room for weakness and was found to have worsening anemia. - Patient Problems (1) Microcytic anemia Code(s): D50.9 - IRON DEFICIENCY ANEMIA, UNSPECIFIED SNOMED Code(s): 164457939 Comment: - Acute on Chronic, unclear etiology - Last HH from PCP 11/28/16 - - Received 2 unit RBCs - Symptoms of lightheadedness and mild shortness of breath, resolved - No signs of bleeding - GI consult, appreciate input - Plan for outpatient capsule endoscopy - IV Venofer x 2 days - HH will give another unit of RBCs today - Will recheck HH later today (2) Chronic kidney disease (CKD) Code(s): N18.9 - CHRONIC KIDNEY DISEASE, UNSPECIFIED SNOMED Code(s): 995324221 Comment: - Creatinine 1.08 - Labs from PCP show creatinine 1.5 11/2016 - Pt appears to be at baseline (3) Constipation Code(s): K59.00 - CONSTIPATION, UNSPECIFIED SNOMED Code(s): 17727810 Comment: - Bowel regime (4) Type 2 diabetes mellitus Comment: - Hold glipizide - Continue lispro SS and monitor. (5) HTN (hypertension) Code(s): I10 - ESSENTIAL (PRIMARY) HYPERTENSION SNOMED Code(s): 52127722 Comment: - Normotensive - Continue lisinopril (6) CAD (coronary artery disease) Code(s): I25.10 - ATHSCL HEART DISEASE OF [place] CORONARY ARTERY W/O ANG PCTRS SNOMED Code(s): 32611432 Comment: - Continue Atorvastatin and Metolprolol - Continue to hold ASA in setting of possible bleeding (7) COPD (chronic obstructive pulmonary disease) Code(s): J44.9 - CHRONIC OBSTRUCTIVE PULMONARY DISEASE, UNSPECIFIED SNOMED Code(s): 27621336 Comment: - No evidence of exacerbation at this time - Continue Dulera and Spiriva with PRN Albuterol. (8) Congestive heart failure (CHF) Code(s): I50.9 - HEART FAILURE, UNSPECIFIED SNOMED Code(s): 80773353 Comment: - EF > 65% 02/2016 - Continue spironolactone and furosemide - Strict I+O and daily weights (9) DVT prophylaxis Code(s): [id number] - SNOMED Code(s): 756535909 Comment: - Pharmacological prophylaxis contraindicated in the setting of possible bleeding - SCD to bilateral LE. - Encourage ambulation. (10) Full code status Code(s): Z78.9 - OTHER SPECIFIED HEALTH STATUS SNOMED Code(s): 545243315 Status and Disposition: Inpatient. Discharge to home when medically stable, possibly in the morning.
[2017-03-22] MEDS: Mometasone/Formoter 200/5 MDI INH SCH ×2 (08:56→20:49)
[2017-03-22] MEDS: Tiotropium CAP.INH* CAP.INH/18 MCG INH SCH (08:56)
[2017-03-22] MEDS: Lisinopril TAB* 10 MG PO SCH (09:27)
[2017-03-22] MEDS: Furosemide TAB* 40 MG PO SCH (09:27)
[2017-03-22] MEDS: Omeprazole CAP* 20 MG PO SCH (09:27)
[2017-03-22] MEDS: Atorvastatin* 10 MG TAB PO SCH (09:27)
[2017-03-22] MEDS: Metoprolol Tartrate TAB* 50 mg PO SCH ×2 (09:27→21:09)
[2017-03-22] MEDS: Insulin LISPRO* 1 UNITS UNIT SUBCUT SCH ×3 (09:28→17:39)
[2017-03-22] MEDS: Bisacodyl EC TAB* 5 MG PO PRN (09:33)
[2017-03-22] MEDS: Spironolactone TAB* 25 MG PO SCH (16:13)
[2017-03-22 16:45] LABS: Hematocrit 28 % (35-47); Hemoglobin 8.9 g/dl (12.0-16.0)
[2017-03-23 05:31] LABS: Hematocrit 27 % (35-47); Hemoglobin 8.5 g/dl (12.0-16.0)
[2017-03-23] MEDS: Omeprazole CAP* 20 MG PO SCH (08:02)
[2017-03-23 08:06] VITALS: BP 145/62
[2017-03-23] MEDS: Tiotropium CAP.INH* CAP.INH/18 MCG INH SCH (08:45)
[2017-03-23] MEDS: Mometasone/Formoter 200/5 MDI INH SCH (08:45)
[2017-03-23] MEDS: Lisinopril TAB* 10 MG PO SCH (08:53)
[2017-03-23] MEDS: Atorvastatin* 10 MG TAB PO SCH (08:53)
[2017-03-23] MEDS: Furosemide TAB* 40 MG PO SCH (08:54)
[2017-03-23] MEDS: Metoprolol Tartrate TAB* 50 mg PO SCH (08:54)
[2017-03-23] MEDS: Insulin LISPRO* 1 UNITS UNIT SUBCUT SCH (08:54)
[2017-03-23] MEDS: Magnesium Hydroxide LIQ* 30 ML UDC PO PRN (08:58)
[2017-03-23] MEDS: Bisacodyl EC TAB* 5 MG PO PRN (08:58)
--- NOTE | 2017-03-23 09:41 | PN ---
Subjective Date of Service: 03/23/17 Interval History: Patient seen and examined at bedside. Pt state that she continues to be constipated, but reports that it is not uncommon for her to only go 1-2 times weekly. Pt states that it has been 10-11 days since her last BM. Pt states that she is passing flatus. Denies fever, chills, shortness of breath, chest discomfort, N/V/D. Tele: SInus rhythm, rate 70-80's. Family History: Unchanged from Admission Social History: Unchanged from Admission Past Medical History: Unchanged from Admission Objective Active Medications: Albuterol (Ventolin 2.5 Mg/3 Ml Neb.Lucrecia*) 1.25 mg INH Q4HR PRN Reason: SOB/ WHEEZING Albuterol (Ventolin Hfa Inhaler*) 2 puff INH Q6H PRN Reason: SOB/WHEEZING Atorvastatin Calcium (Lipitor*) 10 mg PO DAILY [facility] Bisacodyl (Dulcolax Ec Tab*) 5 mg PO DAILY PRN Reason: CONSTIPATION Dextrose (D50w Syringe 50 Ml*) 12.5 gm IV PUSH .FOR FS < 60 - SS PRN Reason: FS < 60 Furosemide (Lasix Tab*) 40 mg PO DAILY [facility] Insulin Human Lispro (Humalog*) 0 units SUBCUT AC [facility] Reason: Protocol Lisinopril (Prinivil Tab*) 20 mg PO DAILY [facility] Magnesium Hydroxide (Milk Of Magnesia Liq*) 30 ml PO Q6H PRN Reason: CONSTIPATION Metoprolol Tartrate (Lopressor Tab*) 50 mg PO BID [facility] Mometasone Furoate/Formoterol Fumar (Dulera 200/5 Mdi*) 2 puff INH BID [facility] Omeprazole (Prilosec Cap*) 20 mg PO DAILY@0730 [facility] Ondansetron HCl (Zofran Inj*) 4 mg IV Q6H PRN Reason: NAUSEA Polyethylene Glycol/Electrolytes (Miralax*) 17 gm PO DAILY PRN Reason: CONSTIPATION Spironolactone (Aldactone Tab*) 25 mg PO 1600 [facility] Tiotropium [place] (Spiriva Cap.Inh*) 1 cap INH DAILY [facility] Vital Signs 03/22/17 03/22/17 03/22/17 11:21 15:19 19:16 Temperature 98.4 F 98.1 F 97.9 F Pulse Rate 67 69 73 Respiratory 18 17 18 Rate Blood Pressure 120/61 128/58 108/57 (mmHg) O2 Sat by Pulse 97 97 98 Oximetry 03/22/17 03/22/17 03/23/17 20:00 23:26 03:20 Temperature 97.9 F 98.1 F Pulse Rate 78 70 Respiratory 16 16 16 Rate Blood Pressure 134/70 125/47 (mmHg) O2 Sat by Pulse 92 93 Oximetry 03/23/17 03/23/17 03/23/17 07:27 07:41 08:46 Temperature 98.0 F Pulse Rate 80 77 Respiratory 16 20 16 Rate Blood Pressure 145/62 (mmHg) O2 Sat by Pulse 97 92 Oximetry Oxygen Devices in Use Now: None Appearance: NAD, laying in bed Eyes: No Scleral Icterus, PERRLA Ears/Nose/Mouth/Throat: Mucous Membranes Moist Respiratory: Symmetrical Chest Expansion and Respiratory Effort, Clear to Auscultation - posterior, wheezing anteriorly. Cardiovascular: NL Sounds; No Murmurs; No JVD, RRR Abdominal: NL Sounds; No Tenderness; No Distention Extremities: No Edema Skin: No Rash or Ulcers Neurological: Alert and Oriented x 3, NL Muscle Strength and Tone Lines/Tubes/Other Access: Clean, Dry and Intact Peripheral IV - site benign Nutrition: Taking PO's Result Diagrams: 03/23/17 04:45 03/21/17 04:11 Additional Lab and Data: Microbiology and Other Data: Microbiology 03/20/17 19:39 Transfusion Reaction Culture - Preliminary Blood Bag Culture Under Incubation Transfusion Reaction Gram Stain - Final Assess/Plan/Problems-Billing Assessment: Ms. Rao is a 71 yo female with PMH significant for DM< CAD, COPD and chronic anemia who presented to the emergency room for weakness and was found to have worsening anemia. - Patient Problems (1) Microcytic anemia Code(s): D50.9 - IRON DEFICIENCY ANEMIA, UNSPECIFIED SNOMED Code(s): 941355541 Comment: - Acute on Chronic, unclear etiology - Last HH from PCP 11/28/16 - - Received 3 unit RBCs - Symptoms of lightheadedness and mild shortness of breath, resolved - No signs of bleeding - GI consult, appreciate input - Plan for outpatient capsule endoscopy - IV Venofer x 2 days - HH (2) Chronic kidney disease (CKD) Code(s): N18.9 - CHRONIC KIDNEY DISEASE, UNSPECIFIED SNOMED Code(s): 070572287 Comment: - Creatinine 1.08 - Labs from PCP show creatinine 1.5 11/2016 - Pt appears to be at baseline (3) Constipation Code(s): K59.00 - CONSTIPATION, UNSPECIFIED SNOMED Code(s): 26237917 Comment: - Bowel regime - Pt encouraged to be on a bowel regime at home (4) Type 2 diabetes mellitus Comment: - Resume glipizide at discharge (5) HTN (hypertension) Code(s): I10 - ESSENTIAL (PRIMARY) HYPERTENSION SNOMED Code(s): 15783774 Comment: - Normotensive - Continue lisinopril (6) CAD (coronary artery disease) Code(s): I25.10 - ATHSCL HEART DISEASE OF [place] CORONARY ARTERY W/O ANG PCTRS SNOMED Code(s): 39295256 Comment: - Continue Atorvastatin and Metolprolol - Continue to hold ASA in setting of possible bleeding (7) COPD (chronic obstructive pulmonary disease) Code(s): J44.9 - CHRONIC OBSTRUCTIVE PULMONARY DISEASE, UNSPECIFIED SNOMED Code(s): 34842000 Comment: - No evidence of exacerbation at this time - Continue Dulera and Spiriva with PRN Albuterol. (8) Congestive heart failure (CHF) Code(s): I50.9 - HEART FAILURE, UNSPECIFIED SNOMED Code(s): 44221908 Comment: - EF > 65% 02/2016 - Continue spironolactone and furosemide - Strict I+O and daily weights (9) DVT prophylaxis Code(s): [id number] - SNOMED Code(s): 777205616 Comment: - Pharmacological prophylaxis contraindicated in the setting of possible bleeding - SCD to bilateral LE. - Encourage ambulation. (10) Full code status Code(s): Z78.9 - OTHER SPECIFIED HEALTH STATUS SNOMED Code(s): 578840328 Status and Disposition: Inpatient. Stable for discharge to home today.
--- NOTE | 2017-03-24 10:38 | DS ---
DISCHARGE SUMMARY: DATE OF ADMISSION: 03/19/17 DATE OF DISCHARGE: 03/23/17 ATTENDING PHYSICIAN: Dr. Kamran Austin * (dictated by Mckenzie Sousa NP). PRIMARY CARE PROVIDER: Dr. Nathan Lopez. PRIMARY DIAGNOSES: 1. Iron deficiency anemia. 2. Acute kidney injury, resolved. SECONDARY DIAGNOSES: 1. Diabetes. 2. Hypertension. 3. Chronic obstructive pulmonary disease. CONSULTATIONS WHILE IN THE HOSPITAL: Dr. Carlos Machado with Gastroenterology. STUDIES WHILE IN THE HOSPITAL: Chest x-ray on 03/19/17. Radiologist's impression: Minimal bilateral segmental atelectasis. Resolution of previous pulmonary edema. DISCHARGE MEDICATIONS: Continued home medications: 1. Albuterol HFA inhaler 2 puffs inhalation every 6 hours as needed for shortness of breath or wheeze. 2. Albuterol 2.5 mg/3 mL nebulizer 1.25 mg inhalation every 4 hours as needed for shortness of breath or wheeze. 3. Atorvastatin 10 mg oral daily. 4. Advair Diskus 250- one puff inhalation twice daily. 5. Protonix 40 mg oral daily. 6. Spironolactone 25 mg oral daily at 1600. 7. Aspirin 81 mg oral daily. 8. Furosemide 40 mg oral daily. 9. Lisinopril 20 mg oral daily. 10. Glipizide XR 2.5 mg oral daily. 11. Metoprolol tartrate 50 mg oral twice daily. 12. Spiriva one puff inhalation daily. HISTORY OF PRESENT ILLNESS/HOSPITAL COURSE: Ms. Rao is a 71-year-old female with a past medical history significant for coronary artery disease, status post myocardial infarction with stent placement, hbe-vszqonw-psoufhdts diabetes , hypertension, COPD, and chronic iron deficiency anemia without a clear source of bleeding, who presented to the hospital with concerns for lightheadedness and generally not feeling well. Ms. Rao's last known hemoglobin per [facility] records from 04/06/16 was 8.1 and that was fairly consistent for her across 2015 , at which time she ran between 7 and 10. The patient was seen here at [facility] and underwent an EGD on 02/07/16, colonoscopy on 02/23/16, and a gastroscopy on 12/28. At the time, no clear source was found as to where the patient may be having bleeding. She was noted to have mild gastritis. It was felt that this did not explain her anemia. The patient was started on iron therapy, but did not tolerate the iron therapy well. She will undertake IV iron, 2 doses of outpatient IV iron infusions. The patient had her last hemoglobin checked in November with Dr. Lopez and was found to have hemoglobin and hematocrit of 11.7 and 35. Patient denied any signs of bleeding such as tarry stool. No vomiting or signs of blood in her stools. The patient reported feeling lightheadedness and a bit dizzy at times with some shortness of breath and being constipated. Due to her symptoms, she presented to the emergency room for further evaluation of her symptoms. While in the emergency room, Ms. Rao's hemoglobin was found to be 6.9 and her creatinine was up slightly from her last visit here. The remaining of her workup was unremarkable. Hospitalists were asked to evaluate the patient for admission for symptomatic anemia. While in the hospital, the patient initially received 1 unit of packed red blood cells with an increase of her hemoglobin from 6.9 to 7.5 and hematocrit from 23 to 24. Patient again received a unit of blood and her hemoglobin increased to 8.2 and 26. The following morning, the patient was noted to have a hemoglobin and hematocrit of 7.2 and 23 respectively. She received another unit of packed red blood cells for a total of 3 units of packed red blood cells during her stay. Her H and H on the day of discharge was 8.5 and 27. During her stay, she also received 2 doses of IV Venofer. During her stay, her shortness of breath and lightheaded and dizziness resolved. The patient initially received IV fluids and her creatinine improved from 1.40 to 1.08. The patient had a consultation with Dr. Machado with Gastroenterology, and it was felt that the patient needed no further GI workup while here and should best be served by an outpatient capsule endoscopy as she could potentially have a small bowel AVM. Ms. Rao is stable for discharge to home today. Vital signs are as follows: Temperature 98, heart rate 80, respiratory rate 20, O2 sat 97% on room air, blood pressure 145/62. DISCHARGE PLAN: Ms. Rao will be discharged to home. ACTIVITY: As tolerated. DIET: She is to be on a consistent carbohydrate diet. As far as the patient's iron deficiency anemia, she does not tolerate oral iron well. She did receive 2 doses of IV Venofer while in the hospital. I will defer any further iron treatments to Dr. Machado. Dr. Machado' office will call the patient to set up an appointment for capsule endoscopy and then followup afterwards. The patient has an appointment with her primary care provider, Dr. Lopez, on Sunday, 03/26 at 1:20 p.m. She has been resumed on her usual home medications. The patient has been encouraged to start a bowel regimen as she often goes a week between bowel movements. This is a summarized report of a complex medical history and hospital stay. For further details, please see the entire medical record. TIME SPENT: Time for this discharge was 50 minutes; 25 minutes was spent face to face with the patient discussing discharge plans and instructions. CONDITION ON DISCHARGE: Stable. MCKENZIE SOUSA NP CC: Dr. Lopez; Dr. Machado* [id number]/[facility] #: [id number] [facility]
== END 2017-03-23 11:20 | disposition home or self-care (01) | DRG 812 ==
LOC: ED 13:38 → MEDTELE 20:26 → OBSVTOIN 03-20 17:55
PROVIDERS: ADMIT Internal Medicine; ATTEND Internal Medicine
PROC: 30233N1 Transfusion of Nonautologous Red Blood Cells into Peripheral Vein, Percutaneous Approach (ICD-10-PCS; principal; 2017-03-20)
DX: D50.9 Iron deficiency anemia, unspecified (principal); N17.9 Acute kidney failure, unspecified; I95.9 Hypotension, unspecified; I13.0 Hypertensive heart and chronic kidney disease with heart failure and stage 1 through stage 4 chronic kidney disease, or unspecified chronic kidney disease; J44.9 Chronic obstructive pulmonary disease, unspecified; I50.9 Heart failure, unspecified; E11.9 Type 2 diabetes mellitus without complications; D53.9 Nutritional anemia, unspecified; E66.9 Obesity, unspecified; I25.10 Atherosclerotic heart disease of native coronary artery without angina pectoris; K29.70 Gastritis, unspecified, without bleeding; K55.20 Angiodysplasia of colon without hemorrhage; E78.00 Pure hypercholesterolemia, unspecified; F17.210 Nicotine dependence, cigarettes, uncomplicated; K59.00 Constipation, unspecified; N18.9 Chronic kidney disease, unspecified; Z79.82 Long term (current) use of aspirin; I25.2 Old myocardial infarction; Z95.5 Presence of coronary angioplasty implant and graft; Z88.2 Allergy status to sulfonamides; Z88.0 Allergy status to penicillin; Z88.6 Allergy status to analgesic agent; Z88.8 Allergy status to other drugs, medicaments and biological substances; Z83.2 Family history of diseases of the blood and blood-forming organs and certain disorders involving the immune mechanism; Z90.710 Acquired absence of both cervix and uterus; Z82.49 Family history of ischemic heart disease and other diseases of the circulatory system; Z80.0 Family history of malignant neoplasm of digestive organs; Z68.33 Body mass index [BMI] 33.0-33.9, adult
CPT/HCPCS: 36415; 71010; 80048; 80053; 81003; 81015; 82270; 82728; 83010; 83540; 83550; 83605; 83615; 84484; 85014; 85018; 85025; 85610; 85730; 86078; 86850; 86900; 86901; 86922; 87040; 87077; 87086; 93005; 94640; 94760; A9270-GY; G0378; J1756; J2405; P9016; P9040

== ENCOUNTER 2017-05-14 17:26 | Observation (INO) | payer MEDICARE ==
[2017-05-14 19:36] LABS: Hematocrit 21 % (35-47); Hemoglobin 6.5 g/dl (12.0-16.0); Mean Corpuscular HGB Conc 31 g/dl (31-36); Mean Corpuscular Hemoglobin 24 pg (27-31); Mean Corpuscular Volume 78 fL (80-97); Mean Platelet Volume 11 um3 (7.4-10.4); Red Cell Distribution Width 19 % (10.5-15); White Blood Count 9.3 10^3/ul (3.5-10.8)
[2017-05-14 19:42] LABS: Comments Flag Yes
[2017-05-14 19:43] LABS: Add Diff/Slide Review? Slide Review Added
[2017-05-14 19:52] LABS: Albumin 3.6 g/dL (3.2-5.2); BUN/Creatinine Ratio 16.9 (8-20); Calcium 9.3 mg/dL (8.6-10.3); EGFR African American 47.2 (>60); EGFR Non-African American 36.7 (>60); Globulin 2.6 g/dL (2-4); Potassium 4.5 mmol/L (3.5-5.0); Total Bilirubin 0.3 mg/dL (0.2-1.0); Total Protein 6.2 g/dL (6.4-8.9)
--- NOTE | 2017-05-14 20:04 | ED ---
Jojo Betancur Alok, scribed for Esperanza Merino MD on 05/14/17 at 1845 . Dizziness - HPI Summary HPI Summary: 71F presents to the ED for weakness and dizziness since last night. She describes her dizziness as a lightheadedness worsened by ambulating and states her dizziness caused her to fall on her knees once without head trauma or LOC. Pt also notes mild SOB on exertion. Pt notes loose stool since swallowing a capsule endoscopy. Pt denies CP or black stool. PMHx includes chronic anemia and DM. Pt has h/o STEMI 13 years ago and had 3 cardiac stents put in after. Pt smokes tobacco. - History Of Current Complaint Chief Complaint: EDWeakness Stated Complaint: WEAKNESS Time Seen by Provider: 05/14/17 17:56 Hx Obtained From: Patient Onset/Duration: Still Present Timing: Constant Severity Initially: Moderate Severity Currently: Moderate Character: Lightheaded, Weak, Dizzy Aggravating Factor(s): Exertion Alleviating Factor(s): Nothing Associated Signs And Symptoms: Positive: SOB, Unsteady Gait. Negative: Chest Pain, Blood In Stool - Allergies/Home Medications Allergies/Adverse Reactions: Allergies Allergy/AdvReac Type Severity Reaction Status Date / Time Aspirin [ASA] Allergy Nausea And Verified 09/18/16 10:27 Vomiting Cephalosporins Allergy Unknown Verified 09/18/16 10:27 Reaction Details Codeine Allergy Unknown Verified 09/18/16 10:27 Reaction Details Metformin Allergy Nausea And Verified 09/18/16 10:27 Vomiting Penicillins [PCN] Allergy Unknown Verified 09/18/16 10:27 Reaction Details Home Medications: Home Medications Albuterol 2.5MG/3ML (0.083%)* [Ventolin 2.5 MG/3 ML NEB.JAHAIRA*] 2.5 mg INH Q6H PRN 05/14/17 [History Confirmed 05/14/17] Albuterol Sulfate 1.25 mg INH Q6HR PRN 05/14/17 [History Confirmed 05/14/17] Lisinopril TAB* [Prinivil TAB*] 20 mg PO DAILY 05/14/17 [History Confirmed 05/14] Metoprolol Tartrate TAB* [Lopressor TAB*] 50 mg PO BID 05/14/17 [History Confirmed 05/14/17] clonazePAM TAB(*) [KlonoPIN TAB(*)] 0.5 mg PO BID PRN 05/14/17 [History Confirmed 05/14/17] PMH/Surg Hx/FS Hx/Imm Hx Endocrine/Hematology History: Reports: Hx Diabetes, Hx Anemia - chronic Denies: Hx Thyroid Disease Cardiovascular History: Reports: Hx Angina, Hx Cardiac Arrest, Hx Coronary Artery Disease, Hx Hypercholesterolemia, Hx Hypertension, Hx Myocardial Infarction Denies: Hx Congestive Heart Failure, Hx Peripheral Vascular Disease, Hx Valvular Heart Disease Respiratory History: Reports: Hx Asthma, Hx Chronic Obstructive Pulmonary Disease (COPD), Other Respiratory Problems/Disorders - RESP FAILURE 02/2016 GI History: Reports: Hx Gastrointestinal Bleed, Hx Ulcer History: Denies: Hx Renal Disease Musculoskeletal History: Denies: Hx Arthritis, Hx Osteoporosis Sensory History: Reports: Hx Contacts or Glasses Denies: Hx Cataracts, Hx Glaucoma, Hx Hearing Aid Opthamlomology History: Reports: Hx Contacts or Glasses Denies: Hx Cataracts, Hx Glaucoma Neurological History: Denies: Hx Headaches, Hx Seizures, Hx Transient Ischemic Attacks (TIA) - Surgical History Surgery Procedure, Year, and Place: Appendectomy as a child. Hysterectomy. Tonsilectomy. Cardiac stents x3 (patient states about 10 years ago) Hx Anesthesia Reactions: No Infectious Disease History: Denies: Hx Hepatitis, Hx Human Immunodeficiency Virus (HIV), Hx Known/ Suspected VRE, Hx Known/Suspected VRSA, Traveled Outside the [place] in Last 30 Days - Family History Known Family History: Positive: Blood Disorder - anemia - Social History Occupation: Retired Lives: Alone Alcohol Use: None Hx Substance Use: No Substance Use Type: Reports: None Hx Tobacco Use: Yes Smoking Status (MU): Light Every Day Tobacco Smoker Type: Cigarettes Amount Used/How Often: 1PPD PRIOR TO JANUARY 2016 Length of Time of Smoking/Using Tobacco: APPROX 50 YEARS Have You Smoked in the Last Year: Yes Review of Systems Negative: Fever Negative: Chest Pain Positive: Shortness Of Breath Positive: Other - Loose stools. Negative: Black stools Neurological: Other - dizziness Positive: Weakness All Other Systems Reviewed And Are Negative: Yes Physical Exam Triage Information Reviewed: Yes Vital Signs On Initial Exam: Initial Vitals Temp Pulse Resp BP Pulse Ox 98.7 F 69 16 146/54 98 05/14/17 17:27 05/14/17 17:27 05/14/17 17:27 05/14/17 17:27 05/14/17 17:27 Vital Signs Reviewed: Yes Appearance: Positive: Well-Appearing, No Pain Distress Skin: Positive: Warm, Skin Color Reflects Adequate Perfusion, Dry Eyes: Positive: EOMI, MARY, Other: - pale conjunctiva ENT: Positive: Pharynx normal, TMs normal Neck: Positive: Supple, Nontender Respiratory/Lung Sounds: Positive: Clear to Auscultation, Breath Sounds Present. Negative: Rales, Rhonchi, Wheezes Cardiovascular: Positive: RRR, Other - no gallop. Negative: Murmur, Rub Abdomen Description: Positive: Nontender, Soft, Other: - no rebound. Negative: Distended, Guarding Bowel Sounds: Positive: Present, Other - Rectal Exam: Dark brown stool Musculoskeletal: Positive: Strength/ROM Intact. Negative: Edema Left, Edema Right Neurological: Positive: Sensory/Motor Intact, Alert, Oriented to Person Place, Time, CN Intact II-III Psychiatric: Positive: Affect/Mood Appropriate Diagnostics - Vital Signs Vital Signs Temp Pulse Resp BP Pulse Ox 05/14/17 18:01 66 98 05/14/17 17:27 98.7 F 69 16 146/54 98 - Laboratory Lab Results: Lab Results 05/14/17 05/14/17 05/14/17 Range/Units 19:26 19:26 19:26 WBC 9.3 (3.5-10.8) 10^3/ul RBC 2.70 L (4.0-5.4) 10^6/ul Hgb 6.5 L (12.0-16.0) g/dl Hct 21 L (35-47) % MCV 78 L (80-97) fL MCH 24 L (27-31) pg MCHC 31 (31-36) g/dl RDW 19 H (10.5-15) % Plt Count 276 (150-450) 10^3/ul MPV 11 H (7.4-10.4) um3 Neut % (Auto) 72.0 (38-83) % Lymph % (Auto) 16.7 L (25-47) % Hayes % (Auto) 9.3 H (1-9) % Eos % (Auto) 1.3 (0-6) % Baso % (Auto) 0.7 (0-2) % Absolute Neuts (auto) 6.7 (1.5-7.7) 10^3/ul Absolute Lymphs (auto) 1.6 (1.0-4.8) 10^3/ul Absolute Monos (auto) 0.9 H (0-0.8) 10^3/ul Absolute Eos (auto) 0.1 (0-0.6) 10^3/ul Absolute Basos (auto) 0.1 (0-0.2) 10^3/ul Absolute Nucleated RBC 0 10^3/ul Nucleated RBC % 0 INR (Anticoag Therapy) 0.94 (0.89-1.11) APTT 28.0 (26.0-36.3) seconds Sodium (133-145) mmol/L Potassium (3.5-5.0) mmol/L Chloride (101-111) mmol/L Carbon Dioxide (22-32) mmol/L Anion Gap (2-11) mmol/L BUN (6-24) mg/dL Creatinine (0.51-0.95) mg/dL Est GFR ( Amer) (>60) Est GFR (Non-Af Amer) (>60) BUN/Creatinine Ratio (8-20) Glucose (70-100) mg/dL Calcium (8.6-10.3) mg/dL Total Bilirubin (0.2-1.0) mg/dL AST (13-39) U/L ALT (7-52) U/L Alkaline Phosphatase (34-104) U/L Total Protein (6.4-8.9) g/dL Albumin (3.2-5.2) g/dL Globulin (2-4) g/dL Albumin/Globulin Ratio (1-3) Blood Type B Positive Antibody Screen Pending 05/14/17 Range/Units 19:26 WBC (3.5-10.8) 10^3/ul RBC (4.0-5.4) 10^6/ul Hgb (12.0-16.0) g/dl Hct (35-47) % MCV (80-97) fL MCH (27-31) pg MCHC (31-36) g/dl RDW (10.5-15) % Plt Count (150-450) 10^3/ul MPV (7.4-10.4) um3 Neut % (Auto) (38-83) % Lymph % (Auto) (25-47) % Hayes % (Auto) (1-9) % Eos % (Auto) (0-6) % Baso % (Auto) (0-2) % Absolute Neuts (auto) (1.5-7.7) 10^3/ul Absolute Lymphs (auto) (1.0-4.8) 10^3/ul Absolute Monos (auto) (0-0.8) 10^3/ul Absolute Eos (auto) (0-0.6) 10^3/ul Absolute Basos (auto) (0-0.2) 10^3/ul Absolute Nucleated RBC 10^3/ul Nucleated RBC % INR (Anticoag Therapy) (0.89-1.11) APTT (26.0-36.3) seconds Sodium 131 L (133-145) mmol/L Potassium 4.5 (3.5-5.0) mmol/L Chloride 102 (101-111) mmol/L Carbon Dioxide 24 (22-32) mmol/L Anion Gap 5 (2-11) mmol/L BUN 24 (6-24) mg/dL Creatinine 1.42 H (0.51-0.95) mg/dL Est GFR ( Amer) 47.2 (>60) Est GFR (Non-Af Amer) 36.7 (>60) BUN/Creatinine Ratio 16.9 (8-20) Glucose 157 H (70-100) mg/dL Calcium 9.3 (8.6-10.3) mg/dL Total Bilirubin 0.30 (0.2-1.0) mg/dL AST 10 L (13-39) U/L ALT 5 L (7-52) U/L Alkaline Phosphatase 46 (34-104) U/L Total Protein 6.2 L (6.4-8.9) g/dL Albumin 3.6 (3.2-5.2) g/dL Globulin 2.6 (2-4) g/dL Albumin/Globulin Ratio 1.4 (1-3) Blood Type Antibody Screen Result Diagrams: 05/14/17 19:26 05/14/17 19:26 Lab Statement: Any lab studies that have been ordered have been reviewed, and results considered in the medical decision making process. - EKG 1736 Cardiac Rate: NL - 69 bpm EKG Rhythm: Sinus Rhythm EKG Interpretation: Non-specific T-wave changes. LVH. EKG Comparison: No Significant Change - From 03/19/17 Dizzy Course/Dx - Course Course Of Treatment: 71 yo female with gi bleed case discussed with Dr. Ruby - Diagnoses Provider Diagnoses: GI bleed - Provider Notifications Discussed Care Of Patient With: Alden Thompson - Will admit pt to [facility] Time Discussed With Above Provider: 20:02 Discharge - Discharge Plan Condition: Stable Disposition: ADMITTED TO [facility] Referrals: Nathan Lopez MD [Primary Care Provider] - The documentation as recorded by the Jojo mejia Alok accurately reflects the service I personally performed and the decisions made by me, Esperanza Merino MD.
[2017-05-14] MEDS ORDERED: Acetaminophen TAB* 325 MG PO PRN (20:23)
[2017-05-14] MEDS ORDERED: Ondansetron INJ* 2 MG/ML VIAL IV PRN (20:23)
[2017-05-14] MEDS ORDERED: Dextrose 50% Syringe 50 ML* 25 GM/50 ML SYRINGE IV PUSH PRN (21:11)
[2017-05-14] MEDS ORDERED: clonazePAM TAB(*) 0.5 MG PO PRN (21:11)
[2017-05-14] MEDS ORDERED: Albuterol HFA INHALER* 8 gm MDI INH PRN (21:11)
[2017-05-14] MEDS ORDERED: Albuterol 2.5 MG/3 ML NEB.SOL* (0.083%) INH PRN (21:11)
[2017-05-14] MEDS: NS 0.9% 1000 ML* 1,000 ML IV SCH (22:17)
--- NOTE | 2017-05-15 02:00 | HP ---
CC: Dr. Nathan Lopez* MEDICINE HISTORY AND PHYSICAL: DATE OF ADMISSION: 05/14/17 PROVIDER: Shyam Hummel NP ATTENDING PHYSICIAN: Dr. Alden Thompson * (as dictated by Shyam Hummel NP ). PRIMARY CARE PHYSICIAN: Dr. Nathan Lopez. PRIMARY LITHOGRAPHERS PRINTER: Dr. Carlos Machado. CHIEF COMPLAINT: Weakness and dizziness plus fall at home. HISTORY OF PRESENT ILLNESS: Ms. Sandra Rao is a 71-year-old female with a past medical history significant for chronic anemia, diabetes, coronary artery disease, COPD, hypertension, hyperlipidemia, who presents today with concern for dizziness and lightheadedness at home. Ms. Rao states that her symptoms started last night and she has been feeling intermittent dizziness and weakness. This morning, apparently her knees gave out and she came in to the hospital for further evaluation of her weakness and dizziness. Her symptoms are made worse by ambulating. She also reports associated dyspnea with exertion and chronic loose stools. Denies any loss of consciousness or head injury. Patient recently had a capsule endoscopy done on 05/02/17. The capsular endoscopy showed active hemorrhage that appeared to emanate from the proximal small bowel and the plan was made to have the patient undergo an enteroscopy on 05/25/[address] Machado. Here in the ER, the patient's hemoglobin and hematocrit was 6.5 and 21, which is down from previous admission as her last H and H on record here in March was 8.5 and 28. The patient's sodium was also mildly low at 131 and she has an elevation in her creatinine function at 1.42. PAST MEDICAL HISTORY: Includes: 1. Recent capsule endoscopy significant for active hemorrhage from proximal small bowel. 2. Chronic anemia. 3. Type 2 diabetes, noninsulin dependent. 4. Coronary artery disease with history of non-ST elevation NE and stent placement over 10 years ago. 5. Hypertension. 6. Hyperlipidemia. 7. COPD. 8. Tobacco abuse. PAST SURGICAL HISTORY: Includes: 1. Tonsillectomy. 2. Appendectomy. 3. Hysterectomy for fibroids and uterus. HOME MEDICATIONS: 1. Albuterol nebulizer treatment one treatment q.6 hours p.r.n. 2. Aspirin 81 mg daily. 3. Albuterol inhaler 2 puffs inhaled q.6 hours p.r.n. 4. Spiriva 1 puff inhaled daily. 5. Glipizide XL 2.5 mg daily. 6. Pantoprazole 40 mg daily. 7. Atorvastatin 10 mg daily. 8. Clonazepam 0.5 mg b.i.d. p.r.n. 9. Advair 250/50 one puff inhaled b.i.d. 10. Lisinopril 20 mg daily. 11. Furosemide 40 mg daily. 12. Metoprolol tartrate 50 mg b.i.d. 13. Spironolactone 25 mg daily. ALLERGIES: Include ASPIRIN, CEPHALOSPORINS, CODEINE, METFORMIN, and PENICILLIN. FAMILY HISTORY: The patient reports her mother who at age 90 with history of heart disease and anemia. Her mother also had tumor in her pancreas. Father had supranuclear palsy and in his 90s. SOCIAL HISTORY: The patient is a current smoker. She reports a [id number] history of smoking and states that she now smokes probably around half a pack a day. She denies any alcohol or illicit drug use. She lives alone. Her daughter, Teresa Rao, is her surrogate decision maker and healthcare proxy. REVIEW OF SYSTEMS: A 14-point review of systems was completed with Ms. Rao. All those not mentioned above were negative as per HPI. PHYSICAL EXAMINATION GENERAL: Ms. Rao is a 71-year-old female, who is lying in the ED stretcher, in no acute distress. VITAL SIGNS: Temperature 98.7, heart rate 68, respiratory rate 16, blood pressure 116/60, and O2 saturation 98% on room air. HEENT: Head is atraumatic, normocephalic. Face is symmetrical. Pupils are equal, round, and reactive to light. Conjunctivae are pale. Extraocular movements are intact. Oral mucosa is moist. NECK: Supple. No lymphadenopathy appreciated. Patient has full range of motion. LUNGS: Clear to auscultation, but do have mild expiratory wheezing noted in the bases. There is no accessory muscle use. CARDIAC: S1, S2 heart sounds. Regular rate and rhythm. No murmurs, rubs, or gallops. No peripheral edema. Distal pulses were 2+. ABDOMEN: Soft, nontender, nondistended. There is no rebound tenderness or guarding. The patient has bowel sounds times all 4 quadrants. MUSCULOSKELETAL: No clubbing or cyanosis. The patient has full range of motion in all extremities. SKIN: Pale, but appears grossly intact. NEUROLOGIC: The patient moves all extremities equally. There is no facial asymmetry or focal deficits. She is alert and oriented x3. LABORATORY DATA AND DIAGNOSTIC STUDIES: CBC: WBC 9.3, hemoglobin 6.5, hematocrit 21, platelet count 276. BMP: Sodium 131, potassium 4.5, chloride 102, carbon dioxide 24, BUN 24, creatinine 1.42, glucose 157, calcium 9.3, AST 10, ALT 5, alk phos 46, albumin 3.6. The patient's EKG shows sinus rhythm with probable left ventricular hypertrophy. The patient has negative T waves in lead II. EKG shows no significant changes from previous. Old medical records were reviewed. ASSESSMENT AND PLAN: Ms. Rao is a 71-year-old female with history significant for chronic anemia secondary to an active hemorrhage in the small bowel who presents today with symptomatic anemia as evidenced by weakness and dizziness. We will admit her under observation to the medicine floor. Plan is as follows: 1. Gastrointestinal bleeding. I did discuss this case with Dr. Machado. He is in agreement with 2 units of packed red blood cells. If the patient continues to do well, he feels that it will be okay to send her home and he will follow the patient as an outpatient and attempt to move her procedure up to an earlier date. If there are any other acute needs, GI could be consulted and the team can consult Dr. Machado directly. At this time, we will continue her PPI therapy. 2. Symptomatic anemia. Again, we will transfuse the patient 2 units of blood and check a post H and H at this time. The patient's vital signs appear stable , although she is currently experiencing dizziness and weakness and has positive orthostatics. We will hold off on her home metoprolol, furosemide, lisinopril and spironolactone at this time. These may be resumed when the patient becomes more stable. Repeat orthostatic vital signs in the morning following blood transfusion, continue to monitor. 3. Acute kidney injury. The patient's creatinine is above baseline most likely secondary to acute anemia and dehydration. The patient will receive IV fluids in addition to her blood transfusion. We will recheck the values in the morning. 4. Hyponatremia. I suspect this is secondary to blood loss and volume depletion. Continue IV fluids and blood transfusion and continue to trend. 5. Diabetes. We will hold the patient's home glipizide and start the patient on lispro sliding scale insulin while here in the hospital. She will be on a consistent carbohydrate diet. 6. Hypertension. Again, the patient is normotensive at this time with positive orthostatic vital signs. So, we will hold her blood pressure medications and these can resumed tomorrow if she is more stable. 7. Obstructive pulmonary disease. No acute evidence of exacerbation. The patient is mildly wheezy, but states that this is in her baseline. Continue home inhalers and p.r.n. nebulizers. 8. History of coronary artery disease. We will hold the patient's aspirin. We will also be holding her metoprolol temporarily until the patient's blood pressure stabilizes. Continue home atorvastatin. 9. FEN. The patient is ordered consistent carbohydrate diet, IV fluids. 10. DVT prophylaxis. Anticoagulants are contraindicated with acute hemorrhage. The patient is ordered SCDs. 11. Code status. The patient is a full code. TIME SPENT: Time spent on this admission was approximately 60 minutes, more than half that time was spent [id number] with the patient obtaining history and physical, performing the physical examination, and reviewing the plan of care. Plan of care was also reviewed with my attending, Dr. Thompson, who is in agreement. SHYAM HUMMEL, MICHAEL [id number]/[facility] #: [id number] [place]
[2017-05-15] MEDS: NS 0.9% 1000 ML* 1,000 ML IV SCH (06:38)
[2017-05-15] MEDS ORDERED: Omeprazole CAP* 20 MG PO SCH (07:30)
[2017-05-15] MEDS ORDERED: Insulin LISPRO* 1 UNITS UNIT SUBCUT SCH (07:30)
[2017-05-15 07:48] VITALS: BP 152/56
[2017-05-15] MEDS ORDERED: Spiriva Inhaler DEVICE* 1 EACH DEVICE ONE (09:00)
[2017-05-15] MEDS ORDERED: Atorvastatin* 10 MG TAB PO SCH (09:00)
[2017-05-15] MEDS ORDERED: Tiotropium CAP.INH* CAP.INH/18 MCG INH SCH (09:00)
[2017-05-15] MEDS ORDERED: Mometasone/Formoter 200/5 MDI INH SCH (09:00)
[2017-05-15 09:16] LABS: Hematocrit 29 % (35-47); Hemoglobin 9.3 g/dl (12.0-16.0); Mean Corpuscular HGB Conc 33 g/dl (31-36); Mean Corpuscular Hemoglobin 26 pg (27-31); Mean Corpuscular Volume 80 fL (80-97); Mean Platelet Volume 10 um3 (7.4-10.4); Red Blood Count 3.59 10^6/ul (4.0-5.4); Red Cell Distribution Width 18 % (10.5-15); White Blood Count 7.9 10^3/ul (3.5-10.8)
[2017-05-15 09:30] LABS: BUN/Creatinine Ratio 16.3 (8-20); Calcium 9.3 mg/dL (8.6-10.3); EGFR Non-African American 38.9 (>60); Potassium 4.3 mmol/L (3.5-5.0)
--- NOTE | 2017-05-15 16:00 | DS ---
DOA: 05/14/2017 DOD: 05/15/2017 Care team: Admitting provider: Dr. Alden Ruby Attending provider: JOSE E Wren Attending provider: Dr. Aleta Huynh Discharge provider: JOSE E Jones-S PCP: Dr. Nathan Lopez Discharge diagnosis: 1) GI bleed of small bowel 2) Chronic anemia Secondary diagnosis: 1) Diabetes mellitus 2) Cornary artery disease 3) Chronic obstructed pulmonary disease 4) Hypertension 5) Hyperlipidemia Discharge medications: Albuterol 2.5 mg/3 mL neb solution Albuterol inhaler 2 puffs inhaled Q 6 hours as needed Albuterol sulfate 1.25 mg/3 mL neb Advair 1 puff inhaled BID Lasix 40 mg PO daily Lisinopril 20 mg PO daily Lopressor 50 mg PO BID Protonix 40 mg PO daily Spironolactone 25 mg PO daily Spiriva 1 puff inhaled daily Klonapin 0.5 mg PO BID Glipizide XL 2.5 mg PO daily Changes to home medications: None Imaging: Previous 05/02/2017 capsule endoscopy study: active hemorrhage seen appearing from proximal small bowel with plan for future enteroscopy. EKG: NSR with some left ventricular hypertrophy. Hospital course: This is a 71 yo white female with PMH of Chronic anemia, GI bleed, DM, COPD, HTN , and hyperlipidemia that presented to the ER 05/15/2017 after feeling lightheaded and dizzy at home with H/H of 6.5/21. Symptoms began the night prior to admission with SOB and intermittent dizziness after her knees gave out without any injury. A previous capsule endoscopy 05/02/[address] Machado showed active hemorrhage seen appearing from the proximal small bowel. Plan was made with Dr. Machado for enteroscopy on the , it was discussed moving procedure to an earlier date if possible and patient was admitted to observation and received 2 units of packed red blood cells and vital signs remained stable to ensure patient was hemodynamically stable. She did have positive dizziness with orthostatic vital signs which later improved. Her blood pressure medications were held and she received IVF running at 100 ml/hr to correct hyponatremia of 131 and ROSEMARY with Creatinine of 1.42 likely due to prerenal cause of dehydration and anemia. She remained on PPI and was also followed closely with Dr. Machado. On day of discharge H/H improved to 9.3/29, platelets at 253,000, WBC of 7.9, Sodium improved to 132, Potassium of 4.3, Creatinine improvement to 1.35, and CO2 of 22. She reported mild weakness but denies dizziness, SOB, or difficulties ambulating. Follow up plan/disposition: She is to be discharged home where she lives alone in close proximity to her daughter that visits often. Follow up with Dr. Machado for enteroscopy and follow up at PCP in 1-2 weeks with specific monitoring of her anemia.
--- NOTE | 2017-05-15 16:45 | DS ---
CC: Dr. Lopez; Dr. Machado * DISCHARGE SUMMARY: DATE OF ADMISSION: 05/14/17 DATE OF DISCHARGE: 05/15/17 PRIMARY CARE PROVIDER: Dr. Lopez. PRIMARY DRY CLEANING SUPERVISOR: Dr. Machado. DISCHARGING PROVIDER: JOSE E Gonzalez SUPERVISING PHYSICIAN: Dr. Aleta Huynh * (DICTATED BY JOSE E GONZALEZ) PRIMARY DISCHARGE DIAGNOSES: 1. Symptomatic anemia secondary to gastrointestinal blood loss. 2. Acute kidney injury secondary to hypovolemia. 3. Hyponatremia secondary to hypovolemia. SECONDARY DISCHARGE DIAGNOSES: 1. Diabetes. 2. Coronary artery disease without evidence of acute coronary syndrome. 3. Chronic obstructive pulmonary disease without acute exacerbation. 4. Hypertension. 5. Hyperlipidemia. DISCHARGE MEDICATIONS: 1. Albuterol 2.5 mg inhaled q.6 hours as needed for shortness of breath. 2. Aspirin 81 mg p.o. daily. 3. Lipitor 10 mg p.o. daily. 4. Advair 250/50 one puff inhaled twice daily. 5. Lasix 40 mg p.o. daily. 6. Lisinopril 20 mg p.o. daily. 7. Metoprolol tartrate 50 mg p.o. twice daily. 8. Protonix 40 mg p.o. daily. 9. Spironolactone 25 mg p.o. daily. 10. Spiriva 1 capsule inhaled daily. 11. Clonazepam 0.5 mg p.o. twice daily as needed for anxiety. 12. Glipizide 2.5 mg p.o. daily. MEDICATION CHANGES: None. HOSPITAL IMAGING: None. HOSPITAL COURSE: This is a 71-year-old female with a chronic anemia secondary to GI blood loss as well as grz-gdyexjx-xjuueudyb diabetes, coronary artery disease, COPD, hypertension and hyperlipidemia who presented to the hospital with complaints of dizziness and weakness. The patient's hemoglobin was 6.5 on initial labs, but was normo-tensive and otherwise hemodynamically stable. The patient has been struggling with anemia of unknown GI source for about a year and has received multiple blood transfusions and iron infusions. She recently completed a capsule endoscopy with Dr. Machado, which identified an acute hemorrhage within the proximal small bowel and has a pending enteroscopy scheduled in approximately 10 days from now. The patient has noted no bloody stools or melena. No complaints of abdominal pain or syncope. No other acute illness. Dr. Machado was contacted at the time of admission and recommended transfusion. The patient was subsequently admitted and transfused 2 units of packed red blood cells. The patient will follow up with Dr. Machado who is working on moving up the time for her enteroscopy. The patient reports improvement in her dizziness and weakness following transfusion and offers no additional acute complaints. DISCHARGE DISPOSITION AND FOLLOWUP PLAN: The patient is being discharged to home. She has been given instructions to please contact Dr. Mendoza's office tomorrow morning to inquire about timing of her enteroscopy. All home medications have been resumed at this time and no changes made. JOSE E GONZALEZ [id number]/[facility] #: [id number] MTDD
== END 2017-05-15 12:40 | disposition home or self-care (01) ==
LOC: ED 17:26 → SSU 20:18
PROVIDERS: ADMIT Hospitalist; ATTEND Internal Medicine
DX: K92.2 Gastrointestinal hemorrhage, unspecified (principal); D50.0 Iron deficiency anemia secondary to blood loss (chronic); N17.9 Acute kidney failure, unspecified; E86.1 Hypovolemia; E87.1 Hypo-osmolality and hyponatremia; R06.02 Shortness of breath; E11.9 Type 2 diabetes mellitus without complications; I25.10 Atherosclerotic heart disease of native coronary artery without angina pectoris; I10 Essential (primary) hypertension; J44.9 Chronic obstructive pulmonary disease, unspecified; E78.5 Hyperlipidemia, unspecified; Z79.84 Long term (current) use of oral hypoglycemic drugs; Z79.899 Other long term (current) drug therapy; Z88.0 Allergy status to penicillin; Z88.1 Allergy status to other antibiotic agents; Z88.5 Allergy status to narcotic agent; Z88.8 Allergy status to other drugs, medicaments and biological substances; F17.210 Nicotine dependence, cigarettes, uncomplicated; R94.31 Abnormal electrocardiogram [ECG] [EKG]
CPT/HCPCS: 36415; 36430; 80048; 80053; 82272; 85025; 85610; 85730; 86850; 86900; 86901; 86922; 93005; 99285; A9270-GY; G0378; P9040

== ENCOUNTER 2017-07-25 09:51 | Day surgery (SDC) | payer MEDICARE ==
[~2017-07-25 09:51] MED LIST: Acetaminophen TAB* 325 MG PO PRN; Buffered Lidocaine 0.9% SYRIN* 5 ML/SYR SYRINGE INTRADERM ONE
[2017-07-25] MEDS ORDERED: Phenylephrine 2.5% OPTH.SOL* 2 ML BTL ONE (10:52)
[2017-07-25] MEDS ORDERED: acetaZOLAMIDE TAB* 250 MG ONE (10:52)
[2017-07-25] MEDS ORDERED: Flurbiprofen 0.03% OPTH.SOL* 2.5 ML BTL ONE (10:52)
[2017-07-25] MEDS ORDERED: Povidone Iodine 5% OPTH* 30 ML BTL ONE (10:52)
[2017-07-25] MEDS ORDERED: Lidocaine 1% MPF* 2 ML VIAL ONE (10:52)
[2017-07-25] MEDS ORDERED: Lidocaine 2% EPI 1:200000 MPF* 20 ML VIAL ONE (10:52)
[2017-07-25] MEDS ORDERED: Cyclopentolate 1% OPTH.SOL* 2 ML BTL ONE (10:52)
[2017-07-25] MEDS ORDERED: Neomycin/Polymy/Dex OPTH.SUSP* MAXITROL 0.1% 5 ML ONE (10:52)
[2017-07-25] MEDS ORDERED: Buffered Lidocaine 0.9% SYRIN* 5 ML/SYR SYRINGE ONE (10:53)
[2017-07-25] MEDS ORDERED: Proparacaine 0.5% OPHTH.SOL* 15 ML BTL ONE (10:53)
[2017-07-25] MEDS ORDERED: Midazolam* 1 MG/ML 2 ML VIAL (2 MG) ONE (11:10)
[2017-07-25] MEDS ORDERED: fentaNYL* 50 MCG/ML 2 ML VIAL (100 MCG VIAL) ONE (11:10)
[2017-07-25 12:24] VITALS: BP 122/43
--- NOTE | 2017-07-25 12:34 | OP ---
DATE OF OPERATION: 07/25/2017. DATE OF : 1945. SURGEON: Joseph Damon M.D. PREOPERATIVE DIAGNOSIS: Cataract right eye. POSTOPERATIVE DIAGNOSIS: Cataract right eye. OPERATIVE PROCEDURE: Phacoemulsification right eye with IOL. PROCEDURE: The patient was brought to the operating room after being given 1/2% Alcaine with epinep hrine drops in the preoperative area. The eye was prepped and draped in the usual sterile fashion. Sterile drape and eyelid speculum were placed. Again, topical 1/2% Alcaine with epinephrine was gi manny. A paracentesis incision was made at the 9 o'clock position with the No.75 blade. Clear cornea incision 2.2 x 2.2-mm was created at the 12 o'clock position starting at the anterior limbus using the 2.2-mm keratome. The anterior chamber was irrigated with 0.4 mL of 1% non-preservative intracam eral lidocaine and filled with DisCoVisc. A capsulorrhexis was completed using the cystotome and silvia e Utrata forceps. Hydrodissection was performed with balanced salt solution. The lens nucleus was r emoved with the Phacoemulsification handpiece without incident. Cortex was removed with the irrigat ion-aspiration handpiece. The capsular bag was re-inflated using DisCoVisc and an [id number] implant was inserted with the shooter. The irrigation-aspiration handpiece was used to remove all residual DisCoVisc. The eye was refilled with balanced salt solution and the wound checked and found to be watertight. Topical Maxitrol drops were given. [id number]/[facility] #: [id number]
== END 2017-07-25 12:35 | disposition home or self-care (01) ==
LOC: OREAST 09:51
PROVIDERS: ATTEND Specialist
DX: H26.9 Unspecified cataract (principal); I10 Essential (primary) hypertension; E11.9 Type 2 diabetes mellitus without complications; J45.909 Unspecified asthma, uncomplicated; Z79.82 Long term (current) use of aspirin; Z79.899 Other long term (current) drug therapy; Z88.5 Allergy status to narcotic agent; Z88.0 Allergy status to penicillin; Z88.8 Allergy status to other drugs, medicaments and biological substances
CPT/HCPCS: A9270-GY; J2250; J3010; V2632

== ENCOUNTER 2018-03-09 08:58 | Emergency (ER) | payer OTHER ==
[2018-03-09 10:19] LABS: Hematocrit 35 % (35-47); Hemoglobin 10.8 g/dl (12.0-16.0); Mean Corpuscular HGB Conc 31 g/dl (31-36); Mean Corpuscular Hemoglobin 23 pg (27-31); Mean Corpuscular Volume 72 fL (80-97); Red Blood Count 4.79 10^6/ul (4.0-5.4); Red Cell Distribution Width 32 % (10.5-15); White Blood Count 12.2 10^3/ul (3.5-10.8)
[2018-03-09 10:20] LABS: INR 0.97 (0.77-1.02)
[2018-03-09 10:24] LABS: EGFR Non-African American 32.8 (>60)
[2018-03-09 11:05] LABS: ABS Basophils 0.1 10^3/ul (0-0.2); ABS Eosinophils 0.1 10^3/ul (0-0.6); ABS Lymphocytes 0.9 10^3/ul (1.0-4.8); ABS Neutrophils 10.1 10^3/ul (1.5-7.7); ABS Nucleated RBC 0 10^3/ul; Eosinophil % 0.9 % (0-6); Lymphocyte % 7.6 % (25-47); Nucleated Red Blood Cells % 0; Platelet Count 285 10^3/ul (150-450)
--- NOTE | 2018-03-09 11:10 | RAD ---
Indication: Chronic obstructive pulmonary disease. Chest pain. Blood in stools. Comparison: March 19, 2017 Technique: Upright AP 1030 hours Report: Elevated lung volumes. Linear atelectasis flanking the RIGHT minor fissure. The lungs and pleural spaces are otherwise clear. Negative for pneumothorax. The heart, pulmonary vasculature, and mediastinal contours are unremarkable. Negative for free air beneath the diaphragm. IMPRESSION: Stigmata of obstructive lung disease. Mild linear atelectasis flanking the RIGHT minor fissure.
[2018-03-09] MEDS ORDERED: NS 0.9% 1000 ML* 1,000 ML IV ONE (11:39)
--- NOTE | 2018-03-09 12:32 | ED ---
Lc Betancur Tecjoon, scribed for Safai Bustos MD on 03/09/18 at 1017 . GI/ HPI - HPI Summary HPI Summary: This patient is a 72 year old female presenting to [facility] with a chief complaint of rectal bleeding since the middle of the night. Patient states that she noted bright red blood in the toilet after a bowel movement. The pain is rated 5 /10 in severity. Symptoms aggravated by nothing. Symptoms alleviated by nothing. 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 Patient additionally reports abd pain, back pain. - History of Current Complaint Chief Complaint: EDGIBleed Time Seen by Provider: 03/09/18 09:30 Stated Complaint: BLOODY STOOLS Hx Obtained From: Patient Onset/Duration: Started Hours Ago, Still Present Timing: Constant Severity: Moderate Current Severity: Moderate Pain Intensity: 5 Location of Pain: Diffuse Pain Radiates to: Back Associated Signs and Symptoms: Positive: Negative - fever, Other: - abd pain, back pain Aggravating Factor(s): Nothing Alleviating Factor(s): Nothing - Additional Pertinent History Primary Care Physician: WILDA - Allergy/Home Medications Allergies/Adverse Reactions: Allergies Allergy/AdvReac Type Severity Reaction Status Date / Time aspirin Allergy Severe Nausea And Verified 03/09/18 09:22 Vomiting Cephalosporins Allergy Severe Anaphylatic Verified 03/09/18 09:22 Shock codeine Allergy Severe Anaphylatic Verified 03/09/18 09:22 Shock metformin Allergy Severe Nausea And Verified 03/09/18 09:22 Vomiting Penicillins Allergy Severe Anaphylatic Verified 03/09/18 09:22 Shock Home Medications: Home Medications Cyanocobalamin TAB* [Vitamin B12 TAB*] 1,000 mcg PO DAILY 03/09/18 [History Confirmed 03/09/18] Fluticasone-Salmeterol 250-50* [Advair Diskus 250-50*] 1 puff INH BID 03/09/18 [ History Confirmed 03/09/18] Furosemide TAB* [Lasix TAB*] 20 mg PO DAILY 03/09/18 [History Confirmed 03/09/18 ] Guaifen/Phenyleph/Acetaminophn [Tylenol Sinus Severe Caplet] 2 each PO Q4HR PRN 03/09/18 [History Confirmed 03/09/18] Spironolactone TAB* [Aldactone TAB*] 25 mg PO DAILY 03/09/18 [History Confirmed 03/09/18] clonazePAM TAB(*) [KlonoPIN TAB(*)] 0.5 mg PO BID PRN MDD 1 mg 03/09/18 [ History Confirmed 03/09/18] PMH/Surg Hx/FS Hx/Imm Hx Previously Healthy: No Endocrine/Hematology History: Reports: Hx Diabetes, Hx Anemia - chronic Denies: Hx Thyroid Disease Cardiovascular History: Reports: Hx Angina, Hx Cardiac Arrest, Hx Coronary Artery Disease, Hx Hypercholesterolemia, Hx Hypertension, Hx Myocardial Infarction, Hx Syncope Denies: Hx Congestive Heart Failure, Hx Peripheral Vascular Disease, Hx Valvular Heart Disease, Other Cardiovascular Problems/Disorders Respiratory History: Reports: Hx Asthma, Hx Chronic Obstructive Pulmonary Disease (COPD), Other Respiratory Problems/Disorders - RESP FAILURE 02/2016 GI History: Reports: Hx Gastroesophageal Reflux Disease, Hx Gastrointestinal Bleed, Hx Ulcer History: Denies: Hx Renal Disease Musculoskeletal History: Denies: Hx Arthritis, Hx Osteoporosis Sensory History: Reports: Hx Contacts or Glasses Denies: Hx Cataracts, Hx Glaucoma, Hx Hearing Aid Opthamlomology History: Reports: Hx Contacts or Glasses Denies: Hx Cataracts, Hx Glaucoma Neurological History: Denies: Hx Headaches, Hx Seizures, Hx Transient Ischemic Attacks (TIA), Other Neuro Impairments/Disorders - Surgical History Surgery Procedure, Year, and Place: Appendectomy as a child. Hysterectomy. Tonsilectomy. Cardiac stents x3 (patient states about 10 years ago) Hx Anesthesia Reactions: No Infectious Disease History: No Infectious Disease History: Denies: Hx Hepatitis, Hx Human Immunodeficiency Virus (HIV), Hx Known/ Suspected VRE, Hx Known/Suspected VRSA, Traveled Outside the [place] in Last 30 Days - Family History Known Family History: Positive: Blood Disorder - anemia - Social History Alcohol Use: None Hx Substance Use: No Substance Use Type: Reports: None Hx Tobacco Use: Yes Smoking Status (MU): Current Every Day Smoker Type: Cigarettes Amount Used/How Often: 1 pack per week Length of Time of Smoking/Using Tobacco: APPROX 50 YEARS Have You Smoked in the Last Year: Yes Review of Systems Negative: Fever Positive: Abdominal Pain, Other - rectal bleeding Musculoskeletal: Other - back pain All Other Systems Reviewed And Are Negative: Yes Physical Exam - Summary Physical Exam Summary: GENERAL: Patient is a well developed and nourished female who is lying comfortable in the stretcher. Patient is not in any acute respiratory distress. HEAD AND FACE: Normocephalic EYES: PERRLA, EOMI x 2. EARS: Hearing grossly intact. MOUTH: Oropharynx within normal limits. NECK: Supple, trachea is midline, no adenopathy, no JVD, no carotid bruit. CHEST: Symmetric, no tenderness at palpation LUNGS: Diffuse wheezing throughout. CVS: Regular rate and rhythm, S1 and S2 present, no murmurs or gallops appreciated. ABDOMEN: Soft, non-tender. Bowel sounds are normal. No abdominal abnormal pulsations. EXTREMITIES: Full ROM in all major joints, no edema, no cyanosis or clubbing. NEURO: Alert and oriented x 3. No acute neurological deficits. Speech is normal and follows commands. RECTAL: Gross blood per rectal. SKIN: Dry and warm Triage Information Reviewed: Yes Vital Signs On Initial Exam: Initial Vitals Temp Pulse Resp BP Pulse Ox 97.9 F 48 16 124/47 97 03/09/18 09:00 03/09/18 09:00 03/09/18 09:00 03/09/18 09:00 03/09/18 09:00 Vital Signs Reviewed: Yes Diagnostics - Vital Signs Vital Signs Temp Pulse Resp BP Pulse Ox 03/09/18 09:36 17 152/66 03/09/18 09:34 16 03/09/18 09:00 97.9 F 48 16 124/47 97 - Laboratory Lab Results: Lab Results 03/09/18 03/09/18 03/09/18 Range/Units 09:40 09:40 09:40 WBC 12.2 H (3.5-10.8) 10^3/ul RBC 4.79 (4.0-5.4) 10^6/ul Hgb 10.8 L (12.0-16.0) g/dl Hct 35 (35-47) % MCV 72 L (80-97) fL MCH 23 L (27-31) pg MCHC 31 (31-36) g/dl RDW 32 H (10.5-15) % Plt Count 285 (150-450) 10^3/ul MPV Not Reportable Neut % (Auto) 82.6 (38-83) % Lymph % (Auto) 7.6 L (25-47) % Mesa % (Auto) 8.0 H (0-7) % Eos % (Auto) 0.9 (0-6) % Baso % (Auto) 0.9 (0-2) % Absolute Neuts (auto) 10.1 H (1.5-7.7) 10^3/ul Absolute Lymphs (auto) 0.9 L (1.0-4.8) 10^3/ul Absolute Monos (auto) 1.0 H (0-0.8) 10^3/ul Absolute Eos (auto) 0.1 (0-0.6) 10^3/ul Absolute Basos (auto) 0.1 (0-0.2) 10^3/ul Absolute Nucleated RBC 0 10^3/ul Nucleated RBC % 0 Large Platelets Present INR (Anticoag Therapy) 0.97 (0.77-1.02) Sodium 136 L (139-145) mmol/L Potassium 4.6 (3.5-5.0) mmol/L Chloride 105 (101-111) mmol/L Carbon Dioxide 26 (22-32) mmol/L Anion Gap 5 (2-11) mmol/L BUN 31 H (6-24) mg/dL Creatinine 1.56 H (0.51-0.95) mg/dL Est GFR ( Amer) 42.2 (>60) Est GFR (Non-Af Amer) 32.8 (>60) BUN/Creatinine Ratio 19.9 (8-20) Glucose 151 H (70-100) mg/dL Lactic Acid (0.5-2.0) mmol/L Calcium 9.7 (8.6-10.3) mg/dL Total Bilirubin 0.50 (0.2-1.0) mg/dL AST 15 (13-39) U/L ALT 7 (7-52) U/L Alkaline Phosphatase 60 (34-104) U/L Troponin I 0.03 (<0.04) ng/mL Total Protein 6.5 (6.4-8.9) g/dL Albumin 3.9 (3.2-5.2) g/dL Globulin 2.6 (2-4) g/dL Albumin/Globulin Ratio 1.5 (1-3) Blood Type Antibody Screen 03/09/18 03/09/18 Range/Units 09:40 09:40 WBC (3.5-10.8) 10^3/ul RBC (4.0-5.4) 10^6/ul Hgb (12.0-16.0) g/dl Hct (35-47) % MCV (80-97) fL MCH (27-31) pg MCHC (31-36) g/dl RDW (10.5-15) % Plt Count (150-450) 10^3/ul MPV Neut % (Auto) (38-83) % Lymph % (Auto) (25-47) % Mesa % (Auto) (0-7) % Eos % (Auto) (0-6) % Baso % (Auto) (0-2) % Absolute Neuts (auto) (1.5-7.7) 10^3/ul Absolute Lymphs (auto) (1.0-4.8) 10^3/ul Absolute Monos (auto) (0-0.8) 10^3/ul Absolute Eos (auto) (0-0.6) 10^3/ul Absolute Basos (auto) (0-0.2) 10^3/ul Absolute Nucleated RBC 10^3/ul Nucleated RBC % Large Platelets INR (Anticoag Therapy) (0.77-1.02) Sodium (139-145) mmol/L Potassium (3.5-5.0) mmol/L Chloride (101-111) mmol/L Carbon Dioxide (22-32) mmol/L Anion Gap (2-11) mmol/L BUN (6-24) mg/dL Creatinine (0.51-0.95) mg/dL Est GFR ( Amer) (>60) Est GFR (Non-Af Amer) (>60) BUN/Creatinine Ratio (8-20) Glucose (70-100) mg/dL Lactic Acid 1.0 (0.5-2.0) mmol/L Calcium (8.6-10.3) mg/dL Total Bilirubin (0.2-1.0) mg/dL AST (13-39) U/L ALT (7-52) U/L Alkaline Phosphatase (34-104) U/L Troponin I (<0.04) ng/mL Total Protein (6.4-8.9) g/dL Albumin (3.2-5.2) g/dL Globulin (2-4) g/dL Albumin/Globulin Ratio (1-3) Blood Type B Positive Antibody Screen Negative Result Diagrams: 03/09/18 09:40 03/09/18 09:40 Lab Statement: Any lab studies that have been ordered have been reviewed, and results considered in the medical decision making process. - Radiology CXR Xray Interpretation: Positive (See Comments) - CXR reveals, per radiologist, IMPRESSION: Stigmata of obstructive lung disease. Mild linear atelectasis flanking the RIGHT minor fissure. ED physician has reviewed this radiology report. 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 Patient states that she noted bright red blood in the toilet after a bowel movement. 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 Similar compared to EKG done on 04/14/2017. CXR reveals, per radiologist, IMPRESSION: Stigmata of obstructive lung disease. Mild linear atelectasis flanking the RIGHT minor fissure. ED physician has reviewed this radiology report. Bloodwork Obtained. Urinalysis Obtained. Patients hemoglobin is stable at 10.6 and vitals are stable. We discussed patient care with Dr. Sullivan (ED provider at [facility]) and they agreed to accept the transfer. Patient will be transferred to [facility] with a dx of GI bleed. The patient is agreeable with this plan. - Diagnoses Provider Diagnoses: GI bleed - Physician Notifications Instructed by Provider To: Transfer - We discussed patient care with Dr. Sullivan (ED provider at [facility]) and they agreed to accept the transfer. Admit/Transition Orders Completed By ED Provider: Yes Discharge - Sign-Out/Discharge Documenting (check all that apply): Discharge/Admit/Transfer - Discharge Plan Condition: Stable Disposition: TRANS HIGHER LVL OF CARE FAC Discharge Disposition Comment: Transferred to [facility] due to lack of GI coverage. Referrals: Nathan Lopez MD [Primary Care Provider] - - Billing Disposition and Condition Condition: STABLE Disposition: EMTALA The documentation as recorded by the Lc mejia Tecjoon accurately reflects the service I personally performed and the decisions made by me, Safia Bustos MD.
[2018-03-09 15:29] VITALS: BP 188/70
== END 2018-03-09 15:28 | disposition short-term general hospital (02) ==
LOC: ED 08:58
DX: K92.2 Gastrointestinal hemorrhage, unspecified (principal); R00.1 Bradycardia, unspecified; E11.9 Type 2 diabetes mellitus without complications; Z79.84 Long term (current) use of oral hypoglycemic drugs; D64.9 Anemia, unspecified; I25.119 Atherosclerotic heart disease of native coronary artery with unspecified angina pectoris; I10 Essential (primary) hypertension; I25.2 Old myocardial infarction; Z95.5 Presence of coronary angioplasty implant and graft; E78.00 Pure hypercholesterolemia, unspecified; Z86.74 Personal history of sudden cardiac arrest; J44.9 Chronic obstructive pulmonary disease, unspecified; K21.9 Gastro-esophageal reflux disease without esophagitis; Z88.6 Allergy status to analgesic agent; Z88.1 Allergy status to other antibiotic agents; Z88.5 Allergy status to narcotic agent; Z88.0 Allergy status to penicillin; Z88.8 Allergy status to other drugs, medicaments and biological substances; F17.210 Nicotine dependence, cigarettes, uncomplicated
CPT/HCPCS: 36415; 71045; 80053; 83605; 84484; 85025; 85610; 86850; 86900; 86901; 93005; 96360; 99285

== ENCOUNTER 2019-06-07 13:29 | Emergency (ER) | payer MEDICARE, OTHER ==
[2019-06-07] MEDS ORDERED: NS 0.9% 1000 ML** 1,000 ML IV ONE (14:30)
[2019-06-07] MEDS ORDERED: ED cefTRIAXone 1 GM/50 ML 1 GM/50 ML PREMIX.SET IVPB ONE (14:30)
--- NOTE | 2019-06-07 14:36 | ED ---
GI/ HPI - HPI Summary HPI Summary: Patient is a 73 y/o F presenting to ED with complaints of left flank pain. She states that she has been experiencing this pain for a while but notes the pain suddenly exacerbated last night, 06/06/19. Pain is described as a cramping and is noted to radiate around to her right abdomen. She reports pain is alleviated by lying still. Nausea is endorsed but vomiting, hematuria, fever, and rash are all denied. PMHx of HTN, patient is on metoprolol, lisinopril, protonix, furosemide. Patient refuses pain medication. Home medications and allergies are reviewed. - History of Current Complaint Chief Complaint: EDFlankPain Stated Complaint: LT SIDE FLANK PAIN PER PT Hx Obtained From: Patient Onset/Duration: Still Present, Worse Since - pain worsened last night Timing: Constant, Lasting Hours - pain worsened last night Severity: Moderate Current Severity: Severe Pain Intensity: 0 Location of Pain: Flank - left Pain Characteristics: Cramping Pain Radiates to: LLQ, RLQ Associated Signs and Symptoms: Positive: Nausea, Flank Pain, Abdominal Pain, Other: - negative - rash. Negative: Vomiting, Fever, Hematuria - Additional Pertinent History Primary Care Physician: WILDA - Allergy/Home Medications Allergies/Adverse Reactions: Allergies Allergy/AdvReac Type Severity Reaction Status Date / Time aspirin Allergy Severe Nausea And Verified 06/07/19 14:16 Vomiting Cephalosporins Allergy Severe Anaphylatic Verified 06/07/19 14:16 Shock codeine Allergy Severe Anaphylatic Verified 06/07/19 14:16 Shock metformin Allergy Severe Nausea And Verified 06/07/19 14:16 Vomiting Penicillins Allergy Severe Anaphylatic Verified 06/07/19 14:16 Shock PMH/Surg Hx/FS Hx/Imm Hx Endocrine/Hematology History: Reports: Hx Diabetes, Hx Anemia - chronic Denies: Hx Thyroid Disease Cardiovascular History: Reports: Hx Angina, Hx Cardiac Arrest, Hx Coronary Artery Disease, Hx Hypercholesterolemia, Hx Hypertension, Hx Myocardial Infarction, Hx Syncope Denies: Hx Congestive Heart Failure, Hx Peripheral Vascular Disease, Hx Valvular Heart Disease, Other Cardiovascular Problems/Disorders Respiratory History: Reports: Hx Asthma, Hx Chronic Obstructive Pulmonary Disease (COPD), Other Respiratory Problems/Disorders - RESP FAILURE 02/2016 GI History: Reports: Hx Gastroesophageal Reflux Disease, Hx Gastrointestinal Bleed, Hx Ulcer History: Denies: Hx Renal Disease Musculoskeletal History: Denies: Hx Arthritis, Hx Osteoporosis Sensory History: Reports: Hx Contacts or Glasses Denies: Hx Cataracts, Hx Glaucoma, Hx Hearing Aid Opthamlomology History: Reports: Hx Contacts or Glasses Denies: Hx Cataracts, Hx Glaucoma Neurological History: Denies: Hx Headaches, Hx Seizures, Hx Transient Ischemic Attacks (TIA), Other Neuro Impairments/Disorders - Surgical History Surgery Procedure, Year, and Place: Appendectomy as a child. Hysterectomy. Tonsilectomy. Cardiac stents x3 (patient states about 10 years ago) Hx Anesthesia Reactions: No Infectious Disease History: No Infectious Disease History: Denies: Hx Hepatitis, Hx Human Immunodeficiency Virus (HIV), Hx Known/ Suspected VRE, Hx Known/Suspected VRSA, Traveled Outside the [place] in Last 30 Days - Family History Known Family History: Positive: Blood Disorder - anemia - Social History Alcohol Use: None Hx Substance Use: No Substance Use Type: Reports: None Hx Tobacco Use: Yes Smoking Status (MU): Light Every Day Tobacco Smoker Type: Cigarettes Amount Used/How Often: 1 pack per week Length of Time of Smoking/Using Tobacco: APPROX 50 YEARS Have You Smoked in the Last Year: Yes Review of Systems Negative: Fever Positive: Nausea. Negative: Vomiting Positive: flank pain - left. Negative: hematuria Negative: Rash All Other Systems Reviewed And Are Negative: Yes Physical Exam - Summary Physical Exam Summary: Appearance: Well appearing, no pain distress Skin: warm, dry, reflects adequate perfusion Head/face: normal Eyes: EOMI, MARY ENT: normal Neck: supple, non-tender Respiratory: CTA, breath sounds present Cardiovascular: RRR, pulses symmetrical Abdomen: LLQ tenderness, soft Musculoskeletal: normal, strength/ROM intact Neuro: normal, sensory motor intact, A&Ox3 Triage Information Reviewed: Yes Vital Signs On Initial Exam: Initial Vitals Temp Pulse Resp BP Pulse Ox 98.4 F 56 18 195/82 98 06/07/19 13:33 06/07/19 13:33 06/07/19 13:33 06/07/19 13:33 06/07/19 13:33 Vital Signs Reviewed: Yes Diagnostics - Vital Signs Vital Signs Temp Pulse Resp BP Pulse Ox 06/07/19 14:08 48 139/59 97 06/07/19 14:07 48 97 06/07/19 13:33 98.4 F 56 18 195/82 98 - Laboratory Result Diagrams: 06/07/19 14:58 06/07/19 14:58 Lab Statement: Any lab studies that have been ordered have been reviewed, and results considered in the medical decision making process. - CT ABD/PEL CT Interpretation Completed By: Radiologist Summary of CT Findings: IMPRESSION: 1. There are no large renal calculi or definite signs of hydronephrosis. 2. There is no definite focal inflammatory change of the gastrointestinal tract. 3. There is coarse atherosclerotic calcification of the abdominal aorta extending into the. common iliac arteries. Please correlate to any signs or symptoms of arterial. insufficiency. 3. Additional chronic, degenerative and iatrogenic findings described in the body of the. report. THIS REPORT WAS REVIEWED BY DR. COLLIER. Re-Evaluation - Re-Evaluation First Eval Re-Evaluation Time: 16:18 Comment: Results of labs and tests were discussed with the patient. Patient to be discharged to home and will follow up with PCP within three days. Strict return precautions given. Patient understands and agrees with plan as discussed. GIGU Course/Dx - Course Course Of Treatment: Patient is a 73 y/o F presenting to ED with complaints of left flank pain. She states that she has been experiencing this pain for a while but notes the pain suddenly exacerbated last night, 06/06/19. Pain is described as a cramping and is noted to radiate around to her right abdomen. She reports pain is alleviated by lying still. Nausea is endorsed but vomiting, hematuria, fever, and rash are all denied. On physical exam, LLQ tenderness is noted. Bloodwork/UA obtained. During ED course, patient received fluids. CT ABD /PEL IMPRESSION: 1. There are no large renal calculi or definite signs of hydronephrosis. 2. There is no definite focal inflammatory change of the gastrointestinal tract. 3. There is coarse atherosclerotic calcification of the abdominal aorta extending into the. common iliac arteries. Please correlate to any signs or symptoms of arterial. insufficiency. 3. Additional chronic, degenerative and iatrogenic findings described in the body of the. report. Results of labs and tests were discussed with the patient. Patient to be discharged to home and will follow up with PCP within three days. Strict return precautions given. Patient understands and agrees with plan as discussed. - Diagnoses Differential Diagnoses - Female: Dehydration, Pyelonephritis, Renal Colic, Urinary Tract Infection Provider Diagnoses: UTI (urinary tract infection) Discharge - Sign-Out/Discharge Documenting (check all that apply): Patient Departure - discharge Patient Received Moderate/Deep Sedation with Procedure: No - Discharge Plan Condition: Stable Disposition: HOME Prescriptions: Ciprofloxacin TAB* [Cipro 500 MG TAB*] 500 mg PO BID #14 tab Patient Education Materials: Urinary Tract Infection in Women (ED) Referrals: Nathan Lopez MD [Primary Care Provider] - 3 Days Additional Instructions: PLEASE RETURN TO ED FOR ANY NEW OR WORSENING SYMPTOMS. FOLLOW-UP WITH YOUR PRIMARY CARE PHYSICIAN WITHIN THREE DAYS. - Billing Disposition and Condition Condition: STABLE Disposition: Home - Attestation Statements Document Initiated by Eduibe: Yes Documenting Scribe: RACHEL URBINA Provider For Whom Scribe is Documenting (Include Credential): SASHA COLLIER MD Scribe Attestation: RACHEL Betancur, scribed for SASHA COLLIER MD on 06/07/19 at 1652. Scribe Documentation Reviewed: Yes Provider Attestation: The documentation as recorded by the RACHEL mejia accurately reflects the service I personally performed and the decisions made by SASHA tobias MD Status of Scribe Document: Viewed
[2019-06-07 15:08] LABS: ABS Basophils 0.1 10^3/ul (0-0.2); ABS Eosinophils 0.1 10^3/ul (0-0.6); ABS Lymphocytes 1.3 10^3/ul (1.0-4.8); ABS Monocytes 0.9 10^3/ul (0-0.8); ABS Neutrophils 6.3 10^3/ul (1.5-7.7); Eosinophil % 1.3 %; Hematocrit 35 % (35-47); Hemoglobin 11.1 g/dL (12.0-16.0); Lymphocyte % 14.8 %; Mean Corpuscular HGB Conc 32 g/dL (31-36); Mean Corpuscular Hemoglobin 24 pg (27-31); Mean Corpuscular Volume 75 fL (80-97); Mean Platelet Volume 10.5 fL (7.4-10.4); Platelet Count 232 10^3/uL (150-450); Red Blood Count 4.62 10^6 /uL (3.70-4.87); Red Cell Distribution Width 16 % (10-15); White Blood Count 8.7 10^3/uL (3.5-10.8)
[2019-06-07 15:16] LABS: Activated Partial Thrombo Time 32.2 seconds (26.0-38.0); INR 1.03 (0.82-1.09); Urine Appearance Clear; Urine Bacteria 1+ (Absent); Urine Bilirubin Negative (Negative); Urine Blood Negative (Negative); Urine Color Yellow; Urine Glucose Negative (Negative); Urine Ketones Negative (Negative); Urine Nitrite Negative (Negative); Urine Protein Negative (Negative); Urine Red Blood Cell Trace(0-2/hpf) (Absent); Urine Renal Epithelial Cells Present (Absent); Urine Specific Gravity 1.013 (1.010-1.030); Urine Squamous Epithelial Cell Present (Absent); Urine Urobilinogen Negative (Negative); Urine White Blood Cell 1+(6-10/hpf) (Absent)
[2019-06-07 15:26] LABS: Troponin I 0.03 ng/mL (<0.04)
[2019-06-07 15:27] LABS: Albumin 4.1 g/dL (3.2-5.2); Albumin/Globulin Ratio 1.5 (1-3); BUN/Creatinine Ratio 15.5 (8-20); EGFR African American 49.3 (>60); EGFR Non-African American 40.7 (>60); Globulin 2.7 g/dL (2-4); Potassium 4.4 mmol/L (3.5-5.0); Total Bilirubin 0.4 mg/dL (0.2-1.0); Total Protein 6.8 g/dL (6.4-8.9)
[2019-06-07] MEDS ORDERED: Ciprofloxacin TAB* 500 MG PO ONE (16:20)
[2019-06-07 16:51] VITALS: BP 176/60
== END 2019-06-07 16:50 | disposition home or self-care (01) ==
LOC: ED 13:29
DX: N39.0 Urinary tract infection, site not specified (principal); I10 Essential (primary) hypertension; Z79.899 Other long term (current) drug therapy; Z88.1 Allergy status to other antibiotic agents; Z88.5 Allergy status to narcotic agent; Z88.0 Allergy status to penicillin; Z88.8 Allergy status to other drugs, medicaments and biological substances; E11.9 Type 2 diabetes mellitus without complications; D64.9 Anemia, unspecified; I25.119 Atherosclerotic heart disease of native coronary artery with unspecified angina pectoris; E78.00 Pure hypercholesterolemia, unspecified; I25.2 Old myocardial infarction; J44.9 Chronic obstructive pulmonary disease, unspecified; K21.9 Gastro-esophageal reflux disease without esophagitis; F17.210 Nicotine dependence, cigarettes, uncomplicated; I70.0 Atherosclerosis of aorta
CPT/HCPCS: 36415; 74176; 80053; 81003; 81015; 83605; 83690; 84484; 85025; 85610; 85730; 87086; 96361; 96374; 99283; A9270-GY

== ENCOUNTER 2020-05-18 22:18 | Inpatient (IN) ==
[2020-05-18] MEDS ORDERED: Albuterol/Ipratropium NEB.SOL (2.5/0.5 MG) 3 ML NEB.SOLN INH ONE ×2 (22:26→22:40)
[2020-05-18] MEDS ORDERED: Magnesium Sulfate 2 gm BAG 2 GM/50 ML BAG IVPB ONE (22:28)
[2020-05-18] MEDS ORDERED: Magnesium Sulfate 2 GM IV (Premix) IVPB ONE (22:40)
[2020-05-19] MEDS ORDERED: Furosemide 40 mg/4 ml IV VIAL ONE (00:48)
[2020-05-19] MEDS ORDERED: Iodixanol (CONTRAST) 320 MG/ML 100 ML SDV IV ONE (02:51)
[2020-05-19] MEDS ORDERED: Ondansetron 4 mg VIAL 2 MG/ML 2 ml VIAL IV PRN (03:23)
[2020-05-19] MEDS ORDERED: Dextrose 50% Syringe 50 ml 25 GM/50 ML SYRINGE IV PUSH PRN (03:23)
[2020-05-19 03:43] LABS: Hematocrit 34 % (35-47); Hemoglobin 10.4 g/dL (12.0-16.0); Mean Corpuscular HGB Conc 31 g/dL (31-36); Mean Corpuscular Hemoglobin 22 pg (27-31); Mean Corpuscular Volume 72 fL (80-97); Mean Platelet Volume 10.4 fL (7.4-10.4); Platelet Count 255 10^3/uL (150-450); Red Cell Distribution Width 18 % (10-15)
[2020-05-19 03:44] LABS: ABS Basophils 0.1 10^3/ul (0-0.2); ABS Eosinophils 0.1 10^3/ul (0-0.6); ABS Lymphocytes 0.9 10^3/ul (1.0-4.8); ABS Monocytes 0.9 10^3/ul (0-0.8); Eosinophil % 0.5 %; Lymphocyte % 5.9 %
[2020-05-19 03:49] LABS: Anion Gap 9 mmol/L (2-11); BUN/Creatinine Ratio 16.4 (8-20); Blood Urea Nitrogen 25 mg/dL (6-24); CO2 Carbon Dioxide 24 mmol/L (22-32); Calcium 9.6 mg/dL (8.6-10.3); Chloride 100 mmol/L (101-111); EGFR African American 40.7 (>60); EGFR Non-African American 33.6 (>60); Glucose 274 mg/dL (70-100); Magnesium 1.9 mg/dL (1.9-2.7); Potassium 4.6 mmol/L (3.5-5.0); Sodium 133 mmol/L (135-145); Total Protein 6.9 g/dL (6.4-8.9)
[2020-05-19 03:50] LABS: ALT 10 U/L (7-52); AST 16 U/L (13-39); Albumin 4.1 g/dL (3.2-5.2); Albumin/Globulin Ratio 1.5 (1-3); Alkaline Phosphatase 81 U/L (34-104); Globulin 2.8 g/dL (2-4)
[2020-05-19 03:51] LABS: C Reactive Protein 2.47 mg/L (<8.01); Troponin I 0.05 ng/mL (<0.03)
[2020-05-19] MEDS: Albuterol HFA INHALER 8 gm MDI INH SCH ×6 (04:39→23:06)
[2020-05-19] MEDS ORDERED: DOXYcycline 100 MG in NS 0.9% 250 ml 250 ML IVPB SCH (05:00)
[2020-05-19] MEDS: methylPREDNISolone 125 mg 2 ML VIAL IV SCH ×2 (05:20→17:27)
[2020-05-19] MEDS ORDERED: NS 0.9% 1000 ml BAG 1,000 ML IV ONE ×3 (05:31→10:37)
[2020-05-19] MEDS: Heparin 5000 UNITS/ML VIAL(*) 1 ml vial SUBCUT SCH ×3 (05:39→20:38)
[2020-05-19 06:30] LABS: INR 1.09 (0.82-1.09)
[2020-05-19 07:06] LABS: Troponin I 0.19 ng/mL (<0.03)
[2020-05-19 07:21] LABS: Anion Gap 16 mmol/L (2-11); BUN/Creatinine Ratio 18.9 (8-20); Blood Urea Nitrogen 30 mg/dL (6-24); CO2 Carbon Dioxide 19 mmol/L (22-32); Calcium 9.4 mg/dL (8.6-10.3); Chloride 96 mmol/L (101-111); EGFR African American 38.6 (>60); EGFR Non-African American 31.9 (>60); Glucose 383 mg/dL (70-100); Potassium 4.3 mmol/L (3.5-5.0); Sodium 131 mmol/L (135-145)
[2020-05-19] MEDS: Aspirin EC 81 mg TAB.EC (enteric coated) PO SCH (07:26)
[2020-05-19 08:26] LABS: Urine Appearance Cloudy; Urine Bilirubin Negative (Negative); Urine Blood Negative (Negative); Urine Color Yellow; Urine Glucose 3+(>=500 mg/dL) (Negative); Urine Ketones Negative (Negative); Urine Nitrite Negative (Negative); Urine Protein Negative (Negative); Urine Specific Gravity 1.021 (1.010-1.030); Urine Urobilinogen Negative (Negative)
[2020-05-19] MEDS: Mometasone/Formoter 200/5 MDI INH SCH ×2 (08:28→19:40)
[2020-05-19] MEDS: Insulin LISPRO 100 units/ml(*) SUBCUT SCH ×3 (08:34→17:27)
[2020-05-19 08:35] LABS: Urine Bacteria Absent (Absent); Urine Red Blood Cell Trace(0-2/hpf) (Absent); Urine Squamous Epithelial Cell Present (Absent); Urine White Blood Cell 2+(11-20/hpf) (Absent)
[2020-05-19] MEDS: GuaiFENesin DM sugar free 100mg/10mg 5 ML UDC PO PRN ×2 (08:52→21:03)
[2020-05-19] MEDS ORDERED: Fluticasone-Salmeterol 250-50 DISKUS INH SCH (09:00)
[2020-05-19 09:24] LABS: Ferritin 8.4 ng/mL (11-307)
[2020-05-19 10:27] LABS: Troponin I 1.19 ng/mL (<0.03)
[2020-05-19 14:32] LABS: Troponin I 3.66 ng/mL (<0.03)
[2020-05-19] MEDS ORDERED: Albuterol/Ipratropium NEB.SOL (2.5/0.5 MG) 3 ML NEB.SOLN INH PRN (15:23)
[2020-05-19] MEDS ORDERED: Levofloxacin 750 MG IVPREMIX(* 750 MG/150 ML BAG IVPB SCH (16:00)
[2020-05-19 17:22] LABS: Troponin I 3.52 ng/mL (<0.03)
[2020-05-20 01:37] LABS: BUN/Creatinine Ratio 24.2 (8-20); Calcium 9.3 mg/dL (8.6-10.3); EGFR African American 51.4 (>60); EGFR Non-African American 42.5 (>60); Magnesium 2.1 mg/dL (1.9-2.7)
[2020-05-20 01:51] LABS: Potassium 5.8 mmol/L (3.5-5.0)
[2020-05-20 02:13] LABS: TSH (Thyroid Stimulating Horm) 0.49 mcIU/mL (0.34-5.60)
[2020-05-20] MEDS ORDERED: CALCIUM GLUCONATE 1GM/50ML NS 1 GM/50 ML BAG IV ONE (02:22)
[2020-05-20] MEDS ORDERED: Insulin REGULAR 100 unit/ml(*) IV PUSH ONE (02:22)
[2020-05-20] MEDS ORDERED: Sodium Polystyrene ORAL.SUSP 15 GM/60 ML BTL PO ONE ×2 (02:22→08:11)
[2020-05-20] MEDS: Albuterol HFA INHALER 8 gm MDI INH SCH ×6 (03:43→23:22)
[2020-05-20] MEDS: methylPREDNISolone 125 mg 2 ML VIAL IV SCH ×2 (04:08→16:18)
[2020-05-20] MEDS: Heparin 5000 UNITS/ML VIAL(*) 1 ml vial SUBCUT SCH ×3 (04:13→20:20)
[2020-05-20 05:44] LABS: ABS Lymphocytes 0.5 10^3/ul (1.0-4.8); ABS Monocytes 0.9 10^3/ul (0-0.8); Hematocrit 27 % (35-47); Hemoglobin 8.4 g/dL (12.0-16.0); Lymphocyte % 2.7 %; Mean Corpuscular HGB Conc 31 g/dL (31-36); Mean Corpuscular Hemoglobin 22 pg (27-31); Mean Corpuscular Volume 71 fL (80-97); Mean Platelet Volume 10.5 fL (7.4-10.4); Platelet Count 206 10^3/uL (150-450); Red Blood Count 3.79 10^6 /uL (3.70-4.87); Red Cell Distribution Width 18 % (10-15); White Blood Count 19.2 10^3/uL (3.5-10.8)
[2020-05-20 05:54] LABS: BUN/Creatinine Ratio 25.2 (8-20); Calcium 9.1 mg/dL (8.6-10.3); EGFR Non-African American 44.6 (>60)
[2020-05-20 05:55] LABS: Potassium 5.8 mmol/L (3.5-5.0)
[2020-05-20] MEDS: GuaiFENesin DM sugar free 100mg/10mg 5 ML UDC PO PRN (08:28)
[2020-05-20] MEDS: Insulin LISPRO 100 units/ml(*) SUBCUT SCH ×3 (08:28→16:55)
[2020-05-20] MEDS: Aspirin EC 81 mg TAB.EC (enteric coated) PO SCH (08:28)
[2020-05-20] MEDS: Mometasone/Formoter 200/5 MDI INH SCH ×2 (08:37→19:17)
[2020-05-20] MEDS ORDERED: Perflutren Lipid Microsphere 3 ML VIAL ONE (10:35)
[2020-05-20 12:11] LABS: Calcium 9.7 mg/dL (8.6-10.3); EGFR African American 45.1 (>60); EGFR Non-African American 37.3 (>60); Potassium 4.9 mmol/L (3.5-5.0)
[2020-05-20] MEDS: SPIRIVA Respimat (tiotropium) 2.5 mcg/inh Inhaler INH SCH (12:31)
[2020-05-20] MEDS: Levofloxacin 250 MG IVPREMX(*) 250 MG/50 ML BAG IVPB SCH (16:19)
[2020-05-21] MEDS: methylPREDNISolone 125 mg 2 ML VIAL IV SCH (03:44)
[2020-05-21] MEDS: Albuterol HFA INHALER 8 gm MDI INH SCH ×6 (04:15→23:33)
[2020-05-21] MEDS: Heparin 5000 UNITS/ML VIAL(*) 1 ml vial SUBCUT SCH ×3 (05:13→21:53)
[2020-05-21 06:22] LABS: ABS Lymphocytes 0.5 10^3/ul (1.0-4.8); ABS Monocytes 0.6 10^3/ul (0-0.8); Hematocrit 29 % (35-47); Lymphocyte % 2.5 %; Mean Corpuscular HGB Conc 31 g/dL (31-36); Mean Corpuscular Hemoglobin 22 pg (27-31); Mean Corpuscular Volume 71 fL (80-97); Mean Platelet Volume 10.5 fL (7.4-10.4); Platelet Count 226 10^3/uL (150-450); Red Blood Count 4.11 10^6 /uL (3.70-4.87); Red Cell Distribution Width 19 % (10-15); White Blood Count 17.9 10^3/uL (3.5-10.8)
[2020-05-21 06:41] LABS: BUN/Creatinine Ratio 26.2 (8-20); EGFR African American 50.5 (>60); EGFR Non-African American 41.7 (>60); Potassium 4.4 mmol/L (3.5-5.0)
[2020-05-21] MEDS: SPIRIVA Respimat (tiotropium) 2.5 mcg/inh Inhaler INH SCH ×2 (06:57→07:54)
[2020-05-21] MEDS: Mometasone/Formoter 200/5 MDI INH SCH ×3 (06:57→20:51)
[2020-05-21] MEDS ORDERED: Insulin LISPRO 100 units/ml(*) SUBCUT ONE ×2 (09:14→12:28)
[2020-05-21] MEDS: Insulin LISPRO 100 units/ml(*) SUBCUT SCH ×3 (09:24→17:22)
[2020-05-21] MEDS: Aspirin EC 81 mg TAB.EC (enteric coated) PO SCH (09:30)
[2020-05-21] MEDS: GuaiFENesin DM sugar free 100mg/10mg 5 ML UDC PO PRN ×2 (10:56→15:22)
[2020-05-21] MEDS: Levofloxacin 250 MG IVPREMX(*) 250 MG/50 ML BAG IVPB SCH (15:22)
[2020-05-22 04:57] LABS: ABS Lymphocytes 0.8 10^3/ul (1.0-4.8); ABS Monocytes 1.4 10^3/ul (0-0.8); Hematocrit 27 % (35-47); Hemoglobin 8.6 g/dL (12.0-16.0); Mean Corpuscular HGB Conc 32 g/dL (31-36); Mean Corpuscular Hemoglobin 23 pg (27-31); Mean Corpuscular Volume 71 fL (80-97); Mean Platelet Volume 10.5 fL (7.4-10.4); Platelet Count 209 10^3/uL (150-450); Red Cell Distribution Width 18 % (10-15)
[2020-05-22] MEDS: Heparin 5000 UNITS/ML VIAL(*) 1 ml vial SUBCUT SCH (06:10)
[2020-05-22] MEDS: Albuterol HFA INHALER 8 gm MDI INH SCH ×2 (06:43→07:57)
[2020-05-22 07:45] VITALS: BP 170/75
[2020-05-22] MEDS: SPIRIVA Respimat (tiotropium) 2.5 mcg/inh Inhaler INH SCH (07:56)
[2020-05-22] MEDS: Mometasone/Formoter 200/5 MDI INH SCH (07:57)
[2020-05-22] MEDS ORDERED: Albuterol HFA INHALER 8 gm MDI INH PRN (08:04)
[2020-05-22] MEDS: Aspirin EC 81 mg TAB.EC (enteric coated) PO SCH (08:33)
[2020-05-22] MEDS: Insulin LISPRO 100 units/ml(*) SUBCUT SCH (09:43)
== END 2020-05-22 12:40 | disposition home or self-care (01) | DRG 871 ==
LOC: ED 22:18 → MED 05-19 04:06 → MEDTELE 05-19 16:43
PROVIDERS: ADMIT Nurse Practitioner Family; ATTEND Internal Medicine

== ENCOUNTER 2020-05-31 19:59 | Inpatient (IN) ==
[2020-05-31] MEDS ORDERED: Albuterol/Ipratropium NEB.SOL (2.5/0.5 MG) 3 ML NEB.SOLN INH ONE (20:07)
[2020-05-31 20:43] LABS: ABS Eosinophils 0.1 10^3/ul (0-0.6); ABS Lymphocytes 1.7 10^3/ul (1.0-4.8); ABS Monocytes 1.1 10^3/ul (0-0.8); ABS Neutrophils 11.4 10^3/ul (1.5-7.7); Eosinophil % 0.6 %; Hematocrit 32 % (35-47); Hemoglobin 10.1 g/dL (12.0-16.0); Lymphocyte % 11.6 %; Mean Corpuscular HGB Conc 31 g/dL (31-36); Mean Corpuscular Hemoglobin 23 pg (27-31); Mean Corpuscular Volume 73 fL (80-97); Mean Platelet Volume 10.5 fL (7.4-10.4); Platelet Count 223 10^3/uL (150-450); Red Blood Count 4.42 10^6 /uL (3.70-4.87); Red Cell Distribution Width 18 % (10-15); White Blood Count 14.3 10^3/uL (3.5-10.8)
[2020-05-31 20:49] LABS: Activated Partial Thrombo Time 28.6 seconds (26.0-38.0); INR 1.03 (0.82-1.09)
[2020-05-31 20:57] LABS: ALT 66 U/L (7-52); AST 32 U/L (13-39); Albumin/Globulin Ratio 1.5 (1-3); Alkaline Phosphatase 119 U/L (34-104); Anion Gap 10 mmol/L (2-11); BUN/Creatinine Ratio 17.9 (8-20); Blood Urea Nitrogen 24 mg/dL (6-24); C Reactive Protein 12.06 mg/L (<8.01); CO2 Carbon Dioxide 26 mmol/L (22-32); Calcium 9.7 mg/dL (8.6-10.3); Chloride 96 mmol/L (101-111); EGFR Non-African American 38.9 (>60); Globulin 2.6 g/dL (2-4); Glucose 454 mg/dL (70-100); Potassium 4.2 mmol/L (3.5-5.0); Sodium 132 mmol/L (135-145); Total Protein 6.6 g/dL (6.4-8.9)
[2020-05-31 21:01] LABS: Troponin I 0.04 ng/mL (<0.03)
[2020-05-31] MEDS ORDERED: NS 0.9% 1000 ml BAG 1,000 ML IV ONE (21:02)
[2020-05-31] MEDS ORDERED: Iodixanol (CONTRAST) 320 MG/ML 100 ML SDV IV ONE (21:02)
[2020-05-31] MEDS ORDERED: Aztreonam 2 GM in NS 0.9% 50 ML 50 ML IVPB ONE (22:30)
[2020-05-31] MEDS ORDERED: Meropenem 1 GM PREMIX(*) 1 GM/50 ML BAG IV ONE (22:50)
[2020-06-01 01:11] LABS: Urine Appearance Clear; Urine Bilirubin Negative (Negative); Urine Blood Negative (Negative); Urine Color Yellow; Urine Glucose 3+(>=500 mg/dL) (Negative); Urine Ketones Negative (Negative); Urine Nitrite Negative (Negative); Urine Protein 1+(30 mg/dL) (Negative); Urine Specific Gravity 1.027 (1.010-1.030); Urine Urobilinogen Negative (Negative)
[2020-06-01] MEDS ORDERED: NS 0.9% 1000 ml BAG 1,000 ML IV SCH (01:30)
[2020-06-01 01:52] LABS: Urine Bacteria 1+ (Absent); Urine Red Blood Cell Trace(0-2/hpf) (Absent); Urine Squamous Epithelial Cell Present (Absent); Urine White Blood Cell Trace(0-5/hpf) (Absent)
[2020-06-01] MEDS ORDERED: Vancomycin 1,000 MG in NS 0.9% 250 ml 250 ML IVPB ONE (03:02)
[2020-06-01] MEDS ORDERED: Vancomycin per Pharmacy 1 EA NOTE FOLLOW UP SCH (04:00)
[2020-06-01] MEDS: Enoxaparin 40 MG/0.4 ML SYR SUBCUT SCH ×2 (04:39→04:46)
[2020-06-01 07:10] LABS: ABS Basophils 0.1 10^3/ul (0-0.2); ABS Eosinophils 0.1 10^3/ul (0-0.6); ABS Lymphocytes 0.9 10^3/ul (1.0-4.8); ABS Monocytes 1.1 10^3/ul (0-0.8); ABS Neutrophils 12.1 10^3/ul (1.5-7.7); Eosinophil % 0.4 %; Hematocrit 25 % (35-47); Hemoglobin 7.9 g/dL (12.0-16.0); Lymphocyte % 6.3 %; Mean Corpuscular HGB Conc 32 g/dL (31-36); Mean Corpuscular Hemoglobin 23 pg (27-31); Mean Corpuscular Volume 72 fL (80-97); Mean Platelet Volume 10.7 fL (7.4-10.4); Platelet Count 162 10^3/uL (150-450); Red Blood Count 3.46 10^6 /uL (3.70-4.87); Red Cell Distribution Width 18 % (10-15); White Blood Count 14.2 10^3/uL (3.5-10.8)
[2020-06-01 07:17] LABS: Anion Gap 4 mmol/L (2-11); BUN/Creatinine Ratio 20.5 (8-20); Blood Urea Nitrogen 23 mg/dL (6-24); CO2 Carbon Dioxide 28 mmol/L (22-32); Calcium 8.1 mg/dL (8.6-10.3); Chloride 101 mmol/L (101-111); EGFR African American 57.9 (>60); EGFR Non-African American 47.8 (>60); Glucose 167 mg/dL (70-100); Potassium 3.9 mmol/L (3.5-5.0); Sodium 133 mmol/L (135-145)
[2020-06-01 07:26] LABS: Troponin I 0.64 ng/mL (<0.03)
[2020-06-01] MEDS ORDERED: Nicotine Lozenge mini 2 MG LOZNG.MINI MT PRN (08:09)
[2020-06-01] MEDS: Mometasone/Formoter 200/5 MDI INH SCH ×2 (08:32→22:29)
[2020-06-01] MEDS: Meropenem 1 GM PREMIX(*) 1 GM/50 ML BAG IV SCH ×3 (08:32→17:49)
[2020-06-01] MEDS: methylPREDNISolone SOD 40 mg/ml 1 ml VIAL IV SCH ×2 (08:32→20:34)
[2020-06-01] MEDS ORDERED: Aspirin EC 81 mg TAB.EC (enteric coated) PO SCH (09:00)
[2020-06-01 14:36] LABS: Troponin I 0.31 ng/mL (<0.03)
[2020-06-01] MEDS: Vancomycin 1,000 MG in NS 0.9% 250 ml 250 ML IV SCH (14:45)
[2020-06-01] MEDS ORDERED: Furosemide 40 mg/4 ml IV VIAL IV SLOW PU ONE (17:30)
[2020-06-01] MEDS ORDERED: Dextrose 50% Syringe 50 ml 25 GM/50 ML SYRINGE IV PUSH PRN (22:05)
[2020-06-02] MEDS: Meropenem 1 GM PREMIX(*) 1 GM/50 ML BAG IV SCH ×3 (00:22→17:43)
[2020-06-02] MEDS: Vancomycin 1,000 MG in NS 0.9% 250 ml 250 ML IV SCH ×2 (02:14→14:43)
[2020-06-02] MEDS: Enoxaparin 40 MG/0.4 ML SYR SUBCUT SCH (03:41)
[2020-06-02] MEDS ORDERED: Furosemide 20 mg/2 ml IV VIAL IV SLOW PU ONE (08:50)
[2020-06-02] MEDS: methylPREDNISolone SOD 40 mg/ml 1 ml VIAL IV SCH ×2 (08:51→20:19)
[2020-06-02] MEDS: Mometasone/Formoter 200/5 MDI INH SCH ×2 (09:10→19:34)
[2020-06-02] MEDS ORDERED: Vancomycin Trough Check NOTE FOLLOW UP ONE (13:30)
[2020-06-02 14:09] LABS: Vancomycin Trough 17.7 mcg/mL
[2020-06-02 14:12] LABS: ABS Lymphocytes 0.4 10^3/ul (1.0-4.8); ABS Monocytes 0.5 10^3/ul (0-0.8); ABS Neutrophils 17.5 10^3/ul (1.5-7.7); Hematocrit 28 % (35-47); Hemoglobin 8.6 g/dL (12.0-16.0); Lymphocyte % 2.4 %; Mean Corpuscular HGB Conc 31 g/dL (31-36); Mean Corpuscular Hemoglobin 22 pg (27-31); Mean Corpuscular Volume 72 fL (80-97); Mean Platelet Volume 11.2 fL (7.4-10.4); Platelet Count 207 10^3/uL (150-450); Red Blood Count 3.83 10^6 /uL (3.70-4.87); Red Cell Distribution Width 18 % (10-15); White Blood Count 18.4 10^3/uL (3.5-10.8)
[2020-06-02 19:04] LABS: Calcium 9.3 mg/dL (8.6-10.3)
[2020-06-02 19:10] LABS: BUN/Creatinine Ratio 22.4 (8-20); EGFR Non-African American 38.9 (>60)
[2020-06-02 19:11] LABS: Potassium 5.1 mmol/L (3.5-5.0)
[2020-06-02] MEDS: Albuterol/Ipratropium NEB.SOL (2.5/0.5 MG) 3 ML NEB.SOLN INH PRN (19:40)
[2020-06-03] MEDS: Meropenem 1 GM PREMIX(*) 1 GM/50 ML BAG IV SCH ×3 (01:08→17:51)
[2020-06-03] MEDS: Vancomycin 1,000 MG in NS 0.9% 250 ml 250 ML IV SCH ×2 (02:11→13:30)
[2020-06-03] MEDS: Enoxaparin 40 MG/0.4 ML SYR SUBCUT SCH (04:31)
[2020-06-03] MEDS: Mometasone/Formoter 200/5 MDI INH SCH ×2 (07:59→19:18)
[2020-06-03] MEDS: methylPREDNISolone SOD 40 mg/ml 1 ml VIAL IV SCH ×2 (09:03→19:32)
[2020-06-03 09:28] LABS: Hematocrit 26 % (35-47); Hemoglobin 8.4 g/dL (12.0-16.0); Mean Corpuscular HGB Conc 32 g/dL (31-36); Mean Corpuscular Hemoglobin 23 pg (27-31); Mean Corpuscular Volume 71 fL (80-97); Mean Platelet Volume 11.2 fL (7.4-10.4); Platelet Count 195 10^3/uL (150-450); Red Blood Count 3.71 10^6 /uL (3.70-4.87); Red Cell Distribution Width 18 % (10-15); White Blood Count 19.5 10^3/uL (3.5-10.8)
[2020-06-03 09:32] LABS: BUN/Creatinine Ratio 27.5 (8-20); EGFR African American 53.4 (>60); EGFR Non-African American 44.2 (>60); Potassium 4.9 mmol/L (3.5-5.0)
[2020-06-03 10:20] LABS: ABS Lymphocytes 0.6 10^3/ul (1.0-4.8); ABS Monocytes 0.9 10^3/ul (0-0.8); Lymphocyte % 2.9 %
[2020-06-03] MEDS ORDERED: Insulin GLARGINE 100 un/ml 10 ml VIAL SUBCUT SCH (18:00)
[2020-06-04] MEDS: Meropenem 1 GM PREMIX(*) 1 GM/50 ML BAG IV SCH ×3 (01:05→17:14)
[2020-06-04] MEDS: Vancomycin 1,000 MG in NS 0.9% 250 ml 250 ML IV SCH ×2 (02:20→14:57)
[2020-06-04] MEDS: Enoxaparin 40 MG/0.4 ML SYR SUBCUT SCH (04:52)
[2020-06-04 06:07] LABS: ABS Basophils 0.1 10^3/ul (0-0.2); ABS Lymphocytes 0.5 10^3/ul (1.0-4.8); ABS Monocytes 1.1 10^3/ul (0-0.8); ABS Neutrophils 16.2 10^3/ul (1.5-7.7); Hematocrit 26 % (35-47); Hemoglobin 8.3 g/dL (12.0-16.0); Mean Corpuscular HGB Conc 32 g/dL (31-36); Mean Corpuscular Hemoglobin 23 pg (27-31); Mean Corpuscular Volume 71 fL (80-97); Mean Platelet Volume 11.1 fL (7.4-10.4); Platelet Count 182 10^3/uL (150-450); Red Blood Count 3.62 10^6 /uL (3.70-4.87); Red Cell Distribution Width 19 % (10-15); White Blood Count 17.8 10^3/uL (3.5-10.8)
[2020-06-04 06:21] LABS: BUN/Creatinine Ratio 30.3 (8-20); EGFR African American 52.4 (>60); EGFR Non-African American 43.3 (>60); Potassium 4.8 mmol/L (3.5-5.0)
[2020-06-04] MEDS: Mometasone/Formoter 200/5 MDI INH SCH ×2 (07:40→19:54)
[2020-06-04] MEDS: methylPREDNISolone SOD 40 mg/ml 1 ml VIAL IV SCH ×2 (09:11→21:53)
[2020-06-04] MEDS ORDERED: Furosemide 40 mg/4 ml IV VIAL IV ONE (16:01)
[2020-06-04] MEDS ORDERED: Insulin GLARGINE 100 un/ml 10 ml VIAL SUBCUT SCH (18:00)
[2020-06-05] MEDS: Meropenem 1 GM PREMIX(*) 1 GM/50 ML BAG IV SCH ×3 (01:05→16:40)
[2020-06-05] MEDS: Vancomycin 1,000 MG in NS 0.9% 250 ml 250 ML IV SCH ×2 (02:28→14:20)
[2020-06-05 05:25] LABS: ABS Lymphocytes 0.5 10^3/ul (1.0-4.8); ABS Monocytes 0.6 10^3/ul (0-0.8); ABS Neutrophils 13.9 10^3/ul (1.5-7.7); Hematocrit 28 % (35-47); Hemoglobin 8.7 g/dL (12.0-16.0); Lymphocyte % 3.4 %; Mean Corpuscular HGB Conc 31 g/dL (31-36); Mean Corpuscular Hemoglobin 22 pg (27-31); Mean Corpuscular Volume 71 fL (80-97); Mean Platelet Volume 10.6 fL (7.4-10.4); Platelet Count 196 10^3/uL (150-450); Red Blood Count 3.96 10^6 /uL (3.70-4.87); Red Cell Distribution Width 19 % (10-15)
[2020-06-05 05:34] LABS: Calcium 9.6 mg/dL (8.6-10.3); EGFR African American 57.9 (>60); EGFR Non-African American 47.8 (>60); Magnesium 2.2 mg/dL (1.9-2.7); Potassium 4.2 mmol/L (3.5-5.0)
[2020-06-05] MEDS: Enoxaparin 40 MG/0.4 ML SYR SUBCUT SCH (05:50)
[2020-06-05] MEDS: Mometasone/Formoter 200/5 MDI INH SCH ×2 (07:35→20:21)
[2020-06-05] MEDS: methylPREDNISolone SOD 40 mg/ml 1 ml VIAL IV SCH ×2 (08:38→21:39)
[2020-06-05] MEDS: Albuterol/Ipratropium NEB.SOL (2.5/0.5 MG) 3 ML NEB.SOLN INH PRN (10:44)
[2020-06-05] MEDS ORDERED: Albuterol HFA INHALER 8 gm MDI INH PRN (11:00)
[2020-06-05] MEDS ORDERED: Vancomycin Trough Check NOTE FOLLOW UP ONE (13:30)
[2020-06-05] MEDS ORDERED: Furosemide 20 mg/2 ml IV VIAL IV SLOW PU ONE (16:13)
[2020-06-05] MEDS: Insulin GLARGINE 100 un/ml 10 ml VIAL SUBCUT SCH (18:23)
[2020-06-06] MEDS: Meropenem 1 GM PREMIX(*) 1 GM/50 ML BAG IV SCH ×3 (00:21→20:59)
[2020-06-06] MEDS: Enoxaparin 40 MG/0.4 ML SYR SUBCUT SCH (05:58)
[2020-06-06] MEDS ORDERED: Vancomycin Random Level NOTE FOLLOW UP ONE (06:00)
[2020-06-06 06:10] LABS: ABS Lymphocytes 0.6 10^3/ul (1.0-4.8); ABS Monocytes 0.6 10^3/ul (0-0.8); ABS Neutrophils 12.1 10^3/ul (1.5-7.7); Hematocrit 30 % (35-47); Hemoglobin 9.3 g/dL (12.0-16.0); Lymphocyte % 4.4 %; Mean Corpuscular HGB Conc 31 g/dL (31-36); Mean Corpuscular Hemoglobin 22 pg (27-31); Mean Corpuscular Volume 71 fL (80-97); Mean Platelet Volume 10.7 fL (7.4-10.4); Nucleated Red Blood Cells % 0.1; Platelet Count 234 10^3/uL (150-450); Red Blood Count 4.23 10^6 /uL (3.70-4.87); Red Cell Distribution Width 19 % (10-15); White Blood Count 13.4 10^3/uL (3.5-10.8)
[2020-06-06 06:15] LABS: Albumin 3.3 g/dL (3.2-5.2); Albumin/Globulin Ratio 1.5 (1-3); BUN/Creatinine Ratio 33.3 (8-20); Calcium 9.1 mg/dL (8.6-10.3); EGFR African American 49.2 (>60); EGFR Non-African American 40.6 (>60); Globulin 2.2 g/dL (2-4); Potassium 4.8 mmol/L (3.5-5.0); Total Bilirubin 0.5 mg/dL (0.2-1.0); Total Protein 5.5 g/dL (6.4-8.9)
[2020-06-06 06:16] LABS: Vancomycin Random 28.2 mcg/mL
[2020-06-06] MEDS: Mometasone/Formoter 200/5 MDI INH SCH ×2 (07:40→20:05)
[2020-06-06] MEDS: SPIRIVA Respimat (tiotropium) 2.5 mcg/inh Inhaler INH SCH (07:40)
[2020-06-06] MEDS: Insulin GLARGINE 100 un/ml 10 ml VIAL SUBCUT SCH (17:36)
[2020-06-07] MEDS: Enoxaparin 40 MG/0.4 ML SYR SUBCUT SCH (05:11)
[2020-06-07] MEDS ORDERED: Vancomycin Random Level NOTE FOLLOW UP ONE (06:00)
[2020-06-07 06:47] LABS: EGFR African American 55.6 (>60); EGFR Non-African American 45.9 (>60)
[2020-06-07] MEDS: SPIRIVA Respimat (tiotropium) 2.5 mcg/inh Inhaler INH SCH (07:37)
[2020-06-07] MEDS: Mometasone/Formoter 200/5 MDI INH SCH (07:38)
[2020-06-07] MEDS: Meropenem 1 GM PREMIX(*) 1 GM/50 ML BAG IV SCH (08:46)
[2020-06-07 09:34] LABS: C Reactive Protein 1.18 mg/L (<8.01)
[2020-06-07] MEDS: Insulin GLARGINE 100 un/ml 10 ml VIAL SUBCUT SCH (18:08)
[2020-06-07 18:38] VITALS: BP 142/47
== END 2020-06-07 12:20 | disposition home or self-care (01) | DRG 871 ==
LOC: ED 19:59 → MED 06-01 00:50
PROVIDERS: ADMIT Student in an Organized Health Care Education/Training Program; ATTEND Internal Medicine

== ENCOUNTER 2020-07-01 21:39 | Inpatient (IN) ==
[2020-07-01] MEDS ORDERED: Albuterol 0.5% CONC NEB.SOL 5 mg/ml 20 ml BOT INH ONE (21:55)
[2020-07-01 22:26] LABS: ALT 18 U/L (7-52); AST 16 U/L (13-39); Albumin 4.3 g/dL (3.2-5.2); Albumin/Globulin Ratio 1.5 (1-3); Alkaline Phosphatase 132 U/L (34-104); Anion Gap 9 mmol/L (2-11); BUN/Creatinine Ratio 14.5 (8-20); Blood Urea Nitrogen 25 mg/dL (6-24); C Reactive Protein 4.77 mg/L (<8.01); CO2 Carbon Dioxide 24 mmol/L (22-32); Calcium 9.6 mg/dL (8.6-10.3); Chloride 98 mmol/L (101-111); EGFR African American 35.3 (>60); EGFR Non-African American 29.1 (>60); Globulin 2.9 g/dL (2-4); Glucose 472 mg/dL (70-100); Potassium 4.9 mmol/L (3.5-5.0); Sodium 131 mmol/L (135-145); Total Protein 7.2 g/dL (6.4-8.9)
[2020-07-01 22:29] LABS: Troponin I 0.05 ng/mL (<0.03)
[2020-07-01 22:32] LABS: ABS Basophils 0.1 10^3/ul (0-0.2); ABS Eosinophils 0.1 10^3/ul (0-0.6); ABS Lymphocytes 1.7 10^3/ul (1.0-4.8); ABS Monocytes 0.9 10^3/ul (0-0.8); ABS Neutrophils 12.7 10^3/ul (1.5-7.7); Eosinophil % 0.6 %; Hematocrit 34 % (35-47); Hemoglobin 10.4 g/dL (12.0-16.0); Lymphocyte % 11.2 %; Mean Corpuscular HGB Conc 31 g/dL (31-36); Mean Corpuscular Hemoglobin 23 pg (27-31); Mean Corpuscular Volume 74 fL (80-97); Mean Platelet Volume 10.5 fL (7.4-10.4); Platelet Count 348 10^3/uL (150-450); Red Blood Count 4.61 10^6 /uL (3.70-4.87); Red Cell Distribution Width 20 % (10-15); White Blood Count 15.5 10^3/uL (3.5-10.8)
[2020-07-01] MEDS ORDERED: Dexamethasone IV 4 MG/ML VIAL 1 ml VIAL IV SLOW PU ONE (22:32)
[2020-07-01] MEDS ORDERED: Levofloxacin 500 MG IVPREMIX 500 MG/100 ML BAG IV ONE (22:39)
[2020-07-01] MEDS ORDERED: Meropenem 1 GM PREMIX(*) 1 GM/50 ML BAG IV ONE (22:41)
[2020-07-01] MEDS ORDERED: Vancomycin 1,000 MG in NS 0.9% 250 ml 250 ML IVPB ONE (23:32)
[2020-07-01] MEDS ORDERED: Dextrose 50% Syringe 50 ml 25 GM/50 ML SYRINGE IV PUSH PRN (23:32)
[2020-07-01] MEDS ORDERED: Vancomycin per Pharmacy 1 EA NOTE FOLLOW UP SCH (23:45)
[2020-07-02] MEDS ORDERED: NS 0.9% 1000 ml BAG 2,000 ML IV ONE (00:57)
[2020-07-02] MEDS: Azithromycin 500 mg/250 ml NS 500 MG/250 ML BAG IVPB SCH (01:31)
[2020-07-02] MEDS: Enoxaparin 30 MG/0.3 ML SYR SUBCUT SCH ×3 (01:50→21:40)
[2020-07-02 01:57] LABS: Urine Appearance Turbid; Urine Bilirubin Negative (Negative); Urine Blood 1+ (Negative); Urine Color Yellow; Urine Glucose 3+(>=500 mg/dL) (Negative); Urine Ketones Negative (Negative); Urine Nitrite Negative (Negative); Urine Protein 2+(100 mg/dL) (Negative); Urine Specific Gravity 1.012 (1.010-1.030); Urine Urobilinogen Negative (Negative)
[2020-07-02] MEDS ORDERED: Vancomycin 1,000 MG in NS 0.9% 250 ml 250 ML IVPB ONE (02:00)
[2020-07-02 02:11] LABS: Urine Bacteria 1+ (Absent); Urine Red Blood Cell Trace(0-2/hpf) (Absent); Urine Squamous Epithelial Cell Present (Absent); Urine White Blood Cell 3+(>20/hpf) (Absent)
[2020-07-02 02:39] LABS: Troponin I 3.27 ng/mL (<0.03)
[2020-07-02] MEDS ORDERED: NS 0.9% 1000 ml BAG 1,000 ML IV SCH (03:30)
[2020-07-02] MEDS: Albuterol 2.5mg/3 ml (0.083%) NEB.SOLN INH SCH ×6 (03:36→23:29)
[2020-07-02 06:25] LABS: Troponin I 3.84 ng/mL (<0.03)
[2020-07-02] MEDS: SPIRIVA Respimat (tiotropium) 2.5 mcg/inh Inhaler INH SCH (08:02)
[2020-07-02] MEDS: Aspirin EC 81 mg TAB.EC (enteric coated) PO SCH (08:40)
[2020-07-02] MEDS: methylPREDNISolone SOD 40 mg/ml 1 ml VIAL IV SCH ×2 (08:41→21:40)
[2020-07-02] MEDS ORDERED: Mometasone/Formoter 200/5 MDI INH SCH (09:00)
[2020-07-02] MEDS ORDERED: Umeclidinium 62.5 MDI(NF) MDI INH SCH (09:00)
[2020-07-02 09:02] LABS: Glucose Confirmatory 379 mg/dL (70-100)
[2020-07-02] MEDS ORDERED: Furosemide 40 mg/4 ml IV VIAL IV SLOW PU ONE (09:34)
[2020-07-02] MEDS ORDERED: Insulin GLARGINE 100 un/ml 10 ml VIAL SUBCUT SCH (10:00)
[2020-07-02] MEDS: Meropenem 1 GM PREMIX(*) 1 GM/50 ML BAG IV SCH ×2 (12:41→23:29)
[2020-07-02 14:45] LABS: BUN/Creatinine Ratio 18.9 (8-20); Blood Urea Nitrogen 25 mg/dL (6-24); CO2 Carbon Dioxide 21 mmol/L (22-32); Calcium 8.4 mg/dL (8.6-10.3); Chloride 104 mmol/L (101-111); EGFR African American 47.9 (>60); EGFR Non-African American 39.6 (>60); Glucose 385 mg/dL (70-100); Sodium 133 mmol/L (135-145)
[2020-07-02 14:46] LABS: Anion Gap 8 mmol/L (2-11); Potassium 5.4 mmol/L (3.5-5.0)
[2020-07-02] MEDS ORDERED: Perflutren Lipid Microsphere 3 ML VIAL ONE (16:23)
[2020-07-02] MEDS ORDERED: Furosemide 20 mg/2 ml IV VIAL IV ONE (16:42)
[2020-07-02] MEDS: Vancomycin 1,000 MG in NS 0.9% 250 ml 250 ML IV SCH (17:14)
[2020-07-02 17:37] LABS: Anion Gap 5 mmol/L (2-11); BUN/Creatinine Ratio 21.1 (8-20); Blood Urea Nitrogen 27 mg/dL (6-24); CO2 Carbon Dioxide 25 mmol/L (22-32); Calcium 9.1 mg/dL (8.6-10.3); Chloride 102 mmol/L (101-111); EGFR African American 49.6 (>60); Glucose 311 mg/dL (70-100); Sodium 132 mmol/L (135-145)
[2020-07-02 17:43] LABS: Troponin I 3.82 ng/mL (<0.03)
[2020-07-02] MEDS: Isosorbide Mononit ER 60mg TAB PO SCH (19:48)
[2020-07-03] MEDS: Azithromycin 500 mg/250 ml NS 500 MG/250 ML BAG IVPB SCH (00:22)
[2020-07-03] MEDS: Albuterol 2.5mg/3 ml (0.083%) NEB.SOLN INH SCH ×6 (05:05→22:00)
[2020-07-03] MEDS: Vancomycin 1,000 MG in NS 0.9% 250 ml 250 ML IV SCH ×2 (05:21→18:00)
[2020-07-03 05:52] LABS: ABS Basophils 0.1 10^3/ul (0-0.2); ABS Lymphocytes 0.6 10^3/ul (1.0-4.8); ABS Monocytes 0.6 10^3/ul (0-0.8); ABS Neutrophils 16.8 10^3/ul (1.5-7.7); Hematocrit 23 % (35-47); Hemoglobin 7.3 g/dL (12.0-16.0); Lymphocyte % 3.3 %; Mean Corpuscular HGB Conc 31 g/dL (31-36); Mean Corpuscular Hemoglobin 22 pg (27-31); Mean Corpuscular Volume 70 fL (80-97); Platelet Count 256 10^3/uL (150-450); Red Blood Count 3.31 10^6 /uL (3.70-4.87); Red Cell Distribution Width 19 % (10-15); White Blood Count 18.1 10^3/uL (3.5-10.8)
[2020-07-03 06:08] LABS: BUN/Creatinine Ratio 23.9 (8-20); EGFR Non-African American 45.5 (>60)
[2020-07-03] MEDS: SPIRIVA Respimat (tiotropium) 2.5 mcg/inh Inhaler INH SCH (08:20)
[2020-07-03] MEDS: Isosorbide Mononit ER 60mg TAB PO SCH (08:33)
[2020-07-03] MEDS: methylPREDNISolone SOD 40 mg/ml 1 ml VIAL IV SCH (08:34)
[2020-07-03] MEDS: Aspirin EC 81 mg TAB.EC (enteric coated) PO SCH (08:34)
[2020-07-03] MEDS: Insulin GLARGINE 100 un/ml 10 ml VIAL SUBCUT SCH (08:52)
[2020-07-03] MEDS: Meropenem 1 GM PREMIX(*) 1 GM/50 ML BAG IV SCH ×2 (12:28→23:51)
[2020-07-03 13:40] LABS: Hematocrit 26 % (35-47); Hemoglobin 7.9 g/dL (12.0-16.0); Mean Corpuscular HGB Conc 30 g/dL (31-36); Mean Corpuscular Hemoglobin 22 pg (27-31); Mean Corpuscular Volume 72 fL (80-97); Mean Platelet Volume 10.3 fL (7.4-10.4); Platelet Count 297 10^3/uL (150-450); Red Blood Count 3.63 10^6 /uL (3.70-4.87); Red Cell Distribution Width 19 % (10-15); White Blood Count 20.8 10^3/uL (3.5-10.8)
[2020-07-03] MEDS: Enoxaparin 30 MG/0.3 ML SYR SUBCUT SCH (21:38)
[2020-07-04] MEDS: Azithromycin 500 mg/250 ml NS 500 MG/250 ML BAG IVPB SCH (01:15)
[2020-07-04] MEDS: Albuterol 2.5mg/3 ml (0.083%) NEB.SOLN INH SCH ×3 (03:02→11:32)
[2020-07-04] MEDS ORDERED: Vancomycin Trough Check NOTE FOLLOW UP ONE (05:30)
[2020-07-04] MEDS: Vancomycin 1,000 MG in NS 0.9% 250 ml 250 ML IV SCH (06:38)
[2020-07-04] MEDS: SPIRIVA Respimat (tiotropium) 2.5 mcg/inh Inhaler INH SCH (08:28)
[2020-07-04] MEDS: Aspirin EC 81 mg TAB.EC (enteric coated) PO SCH (09:02)
[2020-07-04] MEDS: Isosorbide Mononit ER 60mg TAB PO SCH (09:02)
[2020-07-04] MEDS: Insulin GLARGINE 100 un/ml 10 ml VIAL SUBCUT SCH (09:03)
[2020-07-04] MEDS: Meropenem 1 GM PREMIX(*) 1 GM/50 ML BAG IV SCH ×2 (12:04→23:00)
[2020-07-04] MEDS: Albuterol HFA INHALER 8 gm MDI INH SCH ×3 (15:42→22:44)
[2020-07-04] MEDS: Enoxaparin 30 MG/0.3 ML SYR SUBCUT SCH (21:13)
[2020-07-04] MEDS ORDERED: Albuterol HFA INHALER 8 gm MDI INH PRN (23:01)
[2020-07-05 04:38] LABS: ABS Basophils 0.2 10^3/ul (0-0.2); ABS Lymphocytes 0.8 10^3/ul (1.0-4.8); ABS Monocytes 1.3 10^3/ul (0-0.8); ABS Neutrophils 11.6 10^3/ul (1.5-7.7); Hematocrit 25 % (35-47); Hemoglobin 8.1 g/dL (12.0-16.0); Mean Corpuscular HGB Conc 33 g/dL (31-36); Mean Corpuscular Hemoglobin 23 pg (27-31); Mean Corpuscular Volume 70 fL (80-97); Platelet Count 261 10^3/uL (150-450); Red Blood Count 3.52 10^6 /uL (3.70-4.87); Red Cell Distribution Width 19 % (10-15)
[2020-07-05 04:50] LABS: Anion Gap 5 mmol/L (2-11); Blood Urea Nitrogen 44 mg/dL (6-24); CO2 Carbon Dioxide 27 mmol/L (22-32); Calcium 9.1 mg/dL (8.6-10.3); Chloride 101 mmol/L (101-111); EGFR Non-African American 36.4 (>60); Glucose 206 mg/dL (70-100); Potassium 4.5 mmol/L (3.5-5.0); Sodium 133 mmol/L (135-145)
[2020-07-05 04:51] LABS: Total Iron Binding Capacity 424 mcg/dL (250-450); Transferrin 303 mg/dL (203-362)
[2020-07-05 05:12] LABS: Ferritin 17.5 ng/mL (11-307)
[2020-07-05 05:16] LABS: Folate 9.99 ng/mL (>3.99)
[2020-07-05 05:17] LABS: Vitamin B12 337 pg/mL (180-914)
[2020-07-05 05:33] LABS: % Iron Saturation 5 % (15-55); Iron < 20 ug/dL (50-212); Unsaturated Iron Binding < 409 ug/dL
[2020-07-05] MEDS: Aspirin EC 81 mg TAB.EC (enteric coated) PO SCH (08:15)
[2020-07-05] MEDS: Isosorbide Mononit ER 60mg TAB PO SCH (08:16)
[2020-07-05] MEDS: Insulin GLARGINE 100 un/ml 10 ml VIAL SUBCUT SCH (08:17)
[2020-07-05] MEDS: SPIRIVA Respimat (tiotropium) 2.5 mcg/inh Inhaler INH SCH (08:41)
[2020-07-05] MEDS ORDERED: Vancomycin 1,250 MG in NS 0.9% 250 ml 250 ML IV SCH (09:00)
[2020-07-05] MEDS ORDERED: Iron Sucrose 200 MG in NS 0.9% 100 ml BAG 100 ML IVPB ONE (09:30)
[2020-07-05] MEDS: Meropenem 1 GM PREMIX(*) 1 GM/50 ML BAG IV SCH ×2 (11:37→23:25)
[2020-07-05] MEDS: Enoxaparin 30 MG/0.3 ML SYR SUBCUT SCH (21:49)
[2020-07-06 07:12] LABS: ABS Lymphocytes 1.2 10^3/ul (1.0-4.8); ABS Monocytes 1.4 10^3/ul (0-0.8); ABS Neutrophils 9.5 10^3/ul (1.5-7.7); Eosinophil % 0.1 %; Hematocrit 25 % (35-47); Hemoglobin 7.9 g/dL (12.0-16.0); Lymphocyte % 10.1 %; Mean Corpuscular HGB Conc 32 g/dL (31-36); Mean Corpuscular Hemoglobin 23 pg (27-31); Mean Corpuscular Volume 70 fL (80-97); Mean Platelet Volume 10.1 fL (7.4-10.4); Nucleated Red Blood Cells % 0.2; Platelet Count 272 10^3/uL (150-450); Red Cell Distribution Width 19 % (10-15)
[2020-07-06 07:26] LABS: BUN/Creatinine Ratio 36.9 (8-20); EGFR African American 58.5 (>60); EGFR Non-African American 48.3 (>60); Potassium 4.2 mmol/L (3.5-5.0)
[2020-07-06] MEDS: Insulin GLARGINE 100 un/ml 10 ml VIAL SUBCUT SCH (08:28)
[2020-07-06] MEDS: Isosorbide Mononit ER 60mg TAB PO SCH (08:28)
[2020-07-06] MEDS: Aspirin EC 81 mg TAB.EC (enteric coated) PO SCH (08:28)
[2020-07-06] MEDS: SPIRIVA Respimat (tiotropium) 2.5 mcg/inh Inhaler INH SCH (08:45)
[2020-07-06] MEDS: Meropenem 1 GM PREMIX(*) 1 GM/50 ML BAG IV SCH (11:55)
[2020-07-06] MEDS: Enoxaparin 30 MG/0.3 ML SYR SUBCUT SCH (21:31)
[2020-07-07] MEDS: Meropenem 1 GM PREMIX(*) 1 GM/50 ML BAG IV SCH ×3 (00:21→23:50)
[2020-07-07 06:52] LABS: BUN/Creatinine Ratio 31.4 (8-20); Calcium 9.5 mg/dL (8.6-10.3); EGFR African American 54.5 (>60); Potassium 4.1 mmol/L (3.5-5.0)
[2020-07-07 07:03] LABS: Hematocrit 29 % (35-47); Mean Corpuscular HGB Conc 32 g/dL (31-36); Mean Corpuscular Hemoglobin 23 pg (27-31); Mean Corpuscular Volume 71 fL (80-97); Red Blood Count 4.01 10^6 /uL (3.70-4.87); Red Cell Distribution Width 19 % (10-15); White Blood Count 13.6 10^3/uL (3.5-10.8)
[2020-07-07] MEDS: SPIRIVA Respimat (tiotropium) 2.5 mcg/inh Inhaler INH SCH (08:17)
[2020-07-07] MEDS: Aspirin EC 81 mg TAB.EC (enteric coated) PO SCH (08:28)
[2020-07-07] MEDS: Insulin GLARGINE 100 un/ml 10 ml VIAL SUBCUT SCH (08:29)
[2020-07-07] MEDS: Isosorbide Mononit ER 60mg TAB PO SCH (08:29)
[2020-07-07 09:15] LABS: ABS Basophils 0.1 10^3/ul (0-0.2); ABS Lymphocytes 1.8 10^3/ul (1.0-4.8); ABS Monocytes 1.3 10^3/ul (0-0.8); ABS Neutrophils 10.4 10^3/ul (1.5-7.7); Eosinophil % 0.3 %; Lymphocyte % 13.2 %; Nucleated Red Blood Cells % 0.1
[2020-07-07 09:48] LABS: Mean Platelet Volume 10.2 fL (7.4-10.4); Platelet Count 321 10^3/uL (150-450)
[2020-07-07 09:50] LABS: Microcytosis 2+; Schistocytes 1+
[2020-07-07] MEDS: Enoxaparin 30 MG/0.3 ML SYR SUBCUT SCH (21:46)
[2020-07-08] MEDS: SPIRIVA Respimat (tiotropium) 2.5 mcg/inh Inhaler INH SCH (08:06)
[2020-07-08] MEDS: Isosorbide Mononit ER 60mg TAB PO SCH (09:33)
[2020-07-08] MEDS: Aspirin EC 81 mg TAB.EC (enteric coated) PO SCH (09:35)
[2020-07-08] MEDS: Insulin GLARGINE 100 un/ml 10 ml VIAL SUBCUT SCH (09:36)
[2020-07-08] MEDS: Meropenem 1 GM PREMIX(*) 1 GM/50 ML BAG IV SCH (12:00)
[2020-07-08] MEDS: Enoxaparin 30 MG/0.3 ML SYR SUBCUT SCH (22:19)
[2020-07-09] MEDS: Meropenem 1 GM PREMIX(*) 1 GM/50 ML BAG IV SCH (00:30)
[2020-07-09] MEDS: SPIRIVA Respimat (tiotropium) 2.5 mcg/inh Inhaler INH SCH (07:30)
[2020-07-09 07:53] VITALS: BP 126/62
[2020-07-09] MEDS: Insulin GLARGINE 100 un/ml 10 ml VIAL SUBCUT SCH (08:37)
[2020-07-09] MEDS: Isosorbide Mononit ER 60mg TAB PO SCH (08:40)
[2020-07-09] MEDS: Aspirin EC 81 mg TAB.EC (enteric coated) PO SCH (08:40)
== END 2020-07-09 12:25 | disposition home or self-care (01) | DRG 193 ==
LOC: ED 21:39 → ICU 23:32 → MEDTELE 07-03 13:55
PROVIDERS: ADMIT Hospitalist; ATTEND Student in an Organized Health Care Education/Training Program

== ENCOUNTER 2020-08-13 00:36 | Inpatient (IN) ==
[2020-08-13] MEDS ORDERED: methylPREDNISolone 125 mg 2 ML VIAL IV ONE (01:22)
[2020-08-13] MEDS ORDERED: Albuterol/Ipratropium NEB.SOL (2.5/0.5 MG) 3 ML NEB.SOLN INH ONE (01:22)
[2020-08-13 01:25] LABS: Activated Partial Thrombo Time 27.1 seconds (26.0-38.0); INR 1.05 (0.82-1.09)
[2020-08-13 01:28] LABS: ABS Basophils 0.1 10^3/ul (0-0.2); ABS Eosinophils 0.1 10^3/ul (0-0.6); ABS Lymphocytes 2.1 10^3/ul (1.0-4.8); ABS Monocytes 0.8 10^3/ul (0-0.8); ABS Neutrophils 7.7 10^3/ul (1.5-7.7); Eosinophil % 1.2 %; Hematocrit 31 % (35-47); Lymphocyte % 19.7 %; Mean Corpuscular HGB Conc 33 g/dL (31-36); Mean Corpuscular Hemoglobin 24 pg (27-31); Mean Corpuscular Volume 74 fL (80-97); Mean Platelet Volume 10.2 fL (7.4-10.4); Nucleated Red Blood Cells % 0.1; Platelet Count 438 10^3/uL (150-450); Red Blood Count 4.18 10^6 /uL (3.70-4.87); Red Cell Distribution Width 21 % (10-15); White Blood Count 10.8 10^3/uL (3.5-10.8)
[2020-08-13 01:32] LABS: ALT 8 U/L (7-52); AST 13 U/L (13-39); Albumin 4.3 g/dL (3.2-5.2); Albumin/Globulin Ratio 1.4 (1-3); Alkaline Phosphatase 118 U/L (34-104); Anion Gap 10 mmol/L (2-11); BUN/Creatinine Ratio 17.6 (8-20); Blood Urea Nitrogen 27 mg/dL (6-24); CO2 Carbon Dioxide 24 mmol/L (22-32); Calcium 9.8 mg/dL (8.6-10.3); Chloride 100 mmol/L (101-111); EGFR African American 40.3 (>60); EGFR Non-African American 33.3 (>60); Glucose 342 mg/dL (70-100); Potassium 4.4 mmol/L (3.5-5.0); Sodium 134 mmol/L (135-145); Total Protein 7.3 g/dL (6.4-8.9)
[2020-08-13 01:40] LABS: Troponin I 0.03 ng/mL (<0.03)
[2020-08-13] MEDS ORDERED: Furosemide 20 mg/2 ml IV VIAL IV SLOW PU ONE (01:41)
[2020-08-13] MEDS ORDERED: Meropenem 1 GM PREMIX(*) 1 GM/50 ML BAG IV ONE (01:54)
[2020-08-13] MEDS ORDERED: Vancomycin 1,750 MG in NS 0.9% 500 ml BAG 500 ML IVPB ONE (02:30)
[2020-08-13] MEDS ORDERED: NS 0.9% 1000 ml BAG 1,000 ML IV SCH (03:00)
[2020-08-13] MEDS ORDERED: Vancomycin per Pharmacy 1 EA NOTE FOLLOW UP SCH (03:00)
[2020-08-13] MEDS ORDERED: Dextrose 50% Syringe 50 ml 25 GM/50 ML SYRINGE IV PUSH PRN (03:03)
[2020-08-13] MEDS ORDERED: Iodixanol (CONTRAST) 320 MG/ML 100 ML SDV IV ONE (03:05)
[2020-08-13] MEDS: Albuterol/Ipratropium NEB.SOL (2.5/0.5 MG) 3 ML NEB.SOLN INH SCH ×3 (04:18→11:14)
[2020-08-13 06:18] LABS: Troponin I 0.14 ng/mL (<0.03)
[2020-08-13] MEDS: Enoxaparin 40 MG/0.4 ML SYR SUBCUT SCH (06:39)
[2020-08-13 06:51] LABS: ABS Lymphocytes 0.4 10^3/ul (1.0-4.8); ABS Monocytes 0.3 10^3/ul (0-0.8); ABS Neutrophils 18.6 10^3/ul (1.5-7.7); Hematocrit 29 % (35-47); Hemoglobin 8.9 g/dL (12.0-16.0); Lymphocyte % 2.3 %; Mean Corpuscular HGB Conc 31 g/dL (31-36); Mean Corpuscular Hemoglobin 23 pg (27-31); Mean Corpuscular Volume 73 fL (80-97); Mean Platelet Volume 10.1 fL (7.4-10.4); Platelet Count 360 10^3/uL (150-450); Red Blood Count 3.92 10^6 /uL (3.70-4.87); Red Cell Distribution Width 21 % (10-15); White Blood Count 19.3 10^3/uL (3.5-10.8)
[2020-08-13 07:01] LABS: Anion Gap 12 mmol/L (2-11); BUN/Creatinine Ratio 20.3 (8-20); Blood Urea Nitrogen 27 mg/dL (6-24); CO2 Carbon Dioxide 23 mmol/L (22-32); Calcium 9.2 mg/dL (8.6-10.3); Chloride 101 mmol/L (101-111); EGFR African American 47.3 (>60); EGFR Non-African American 39.1 (>60); Glucose 336 mg/dL (70-100); Magnesium 1.7 mg/dL (1.9-2.7); Potassium 4.4 mmol/L (3.5-5.0); Sodium 136 mmol/L (135-145)
[2020-08-13 08:13] LABS: C Reactive Protein 1.16 mg/L (<8.01)
[2020-08-13] MEDS: Isosorbide Mononit ER 60mg TAB PO SCH (08:43)
[2020-08-13] MEDS: Aspirin EC 81 mg TAB.EC (enteric coated) PO SCH (08:43)
[2020-08-13] MEDS ORDERED: methylPREDNISolone SOD 40 mg/ml 1 ml VIAL IV SCH ×2 (09:00)
[2020-08-13] MEDS: Mometasone/Formoter 200/5 MDI INH SCH (09:02)
[2020-08-13 09:26] LABS: Ferritin 13.1 ng/mL (11-307)
[2020-08-13] MEDS: Azithromycin 500 mg/250 ml NS 500 MG/250 ML BAG IVPB SCH (10:31)
[2020-08-13] MEDS ORDERED: Albuterol/Ipratropium NEB.SOL (2.5/0.5 MG) 3 ML NEB.SOLN INH PRN (11:15)
[2020-08-13 12:20] LABS: Troponin I 0.12 ng/mL (<0.03)
[2020-08-13] MEDS ORDERED: Insulin Infusion 100unit/100mL 100 UNIT/100 ML BAG IV ONE (15:30)
[2020-08-13] MEDS: Meropenem 1 GM PREMIX(*) 1 GM/50 ML BAG IV SCH (15:56)
[2020-08-13 20:28] LABS: Hematocrit 26 % (35-47); Hemoglobin 8.3 g/dL (12.0-16.0); Mean Corpuscular HGB Conc 33 g/dL (31-36); Mean Corpuscular Hemoglobin 24 pg (27-31); Mean Corpuscular Volume 73 fL (80-97); Mean Platelet Volume 10.1 fL (7.4-10.4); Platelet Count 333 10^3/uL (150-450); Red Blood Count 3.51 10^6 /uL (3.70-4.87); Red Cell Distribution Width 20 % (10-15); White Blood Count 16.8 10^3/uL (3.5-10.8)
[2020-08-13 20:36] LABS: BUN/Creatinine Ratio 24.8 (8-20); Calcium 8.9 mg/dL (8.6-10.3); EGFR African American 50.8 (>60); Potassium 4.5 mmol/L (3.5-5.0)
[2020-08-14] MEDS: Meropenem 1 GM PREMIX(*) 1 GM/50 ML BAG IV SCH ×2 (04:10→15:52)
[2020-08-14 04:54] LABS: Hematocrit 24 % (35-47); Hemoglobin 7.4 g/dL (12.0-16.0); Mean Corpuscular HGB Conc 31 g/dL (31-36); Mean Corpuscular Hemoglobin 22 pg (27-31); Mean Corpuscular Volume 72 fL (80-97); Mean Platelet Volume 10.3 fL (7.4-10.4); Platelet Count 314 10^3/uL (150-450); Red Blood Count 3.32 10^6 /uL (3.70-4.87); Red Cell Distribution Width 21 % (10-15); White Blood Count 22.3 10^3/uL (3.5-10.8)
[2020-08-14 05:11] LABS: Magnesium 1.8 mg/dL (1.9-2.7)
[2020-08-14 05:17] LABS: BUN/Creatinine Ratio 28.4 (8-20); EGFR African American 55.4 (>60); EGFR Non-African American 45.8 (>60); Phosphorus 2.4 mg/dL (2.5-5.0)
[2020-08-14] MEDS: Mometasone/Formoter 200/5 MDI INH SCH ×2 (05:40→09:36)
[2020-08-14] MEDS: Enoxaparin 40 MG/0.4 ML SYR SUBCUT SCH (06:09)
[2020-08-14] MEDS: VANCOMYCIN 1250 MG IVPB SCH (06:09)
[2020-08-14] MEDS ORDERED: Magnesium Sulfate 2 gm BAG 2 GM/50 ML BAG IVPB ONE (07:14)
[2020-08-14] MEDS: Isosorbide Mononit ER 60mg TAB PO SCH (08:49)
[2020-08-14] MEDS: Aspirin EC 81 mg TAB.EC (enteric coated) PO SCH (08:51)
[2020-08-14] MEDS: SPIRIVA Respimat (tiotropium) 2.5 mcg/inh Inhaler INH SCH (09:34)
[2020-08-14] MEDS ORDERED: Furosemide 40 mg/4 ml IV VIAL IV ONE (10:11)
[2020-08-14] MEDS: Azithromycin 500 mg/250 ml NS 500 MG/250 ML BAG IVPB SCH (10:49)
[2020-08-14] MEDS: Insulin GLARGINE 100 un/ml 10 ml VIAL SUBCUT SCH (15:51)
[2020-08-15] MEDS: Meropenem 1 GM PREMIX(*) 1 GM/50 ML BAG IV SCH ×2 (03:42→16:08)
[2020-08-15] MEDS: Enoxaparin 40 MG/0.4 ML SYR SUBCUT SCH (06:00)
[2020-08-15] MEDS: SPIRIVA Respimat (tiotropium) 2.5 mcg/inh Inhaler INH SCH (07:40)
[2020-08-15] MEDS: VANCOMYCIN 1250 MG IVPB SCH (07:59)
[2020-08-15] MEDS: Aspirin EC 81 mg TAB.EC (enteric coated) PO SCH (09:19)
[2020-08-15] MEDS: Isosorbide Mononit ER 60mg TAB PO SCH (09:20)
[2020-08-15] MEDS: Azithromycin 500 mg/250 ml NS 500 MG/250 ML BAG IVPB SCH (10:15)
[2020-08-15] MEDS: Insulin GLARGINE 100 un/ml 10 ml VIAL SUBCUT SCH (17:24)
[2020-08-16] MEDS: Meropenem 1 GM PREMIX(*) 1 GM/50 ML BAG IV SCH ×2 (03:13→16:09)
[2020-08-16] MEDS ORDERED: Vancomycin Trough Check NOTE FOLLOW UP ONE (05:30)
[2020-08-16] MEDS: SPIRIVA Respimat (tiotropium) 2.5 mcg/inh Inhaler INH SCH (07:24)
[2020-08-16 07:53] LABS: ABS Basophils 0.1 10^3/ul (0-0.2); ABS Eosinophils 0.2 10^3/ul (0-0.6); ABS Lymphocytes 1.6 10^3/ul (1.0-4.8); ABS Monocytes 1.1 10^3/ul (0-0.8); ABS Neutrophils 5.9 10^3/ul (1.5-7.7); Eosinophil % 1.8 %; Hematocrit 25 % (35-47); Lymphocyte % 18.2 %; Mean Corpuscular HGB Conc 32 g/dL (31-36); Mean Corpuscular Hemoglobin 23 pg (27-31); Mean Corpuscular Volume 73 fL (80-97); Mean Platelet Volume 10.2 fL (7.4-10.4); Platelet Count 291 10^3/uL (150-450); Red Blood Count 3.48 10^6 /uL (3.70-4.87); Red Cell Distribution Width 21 % (10-15); White Blood Count 8.9 10^3/uL (3.5-10.8)
[2020-08-16 08:11] LABS: BUN/Creatinine Ratio 36.4 (8-20); Calcium 8.7 mg/dL (8.6-10.3); EGFR African American 54.3 (>60); EGFR Non-African American 44.9 (>60)
[2020-08-16] MEDS ORDERED: Furosemide 40 mg/4 ml IV VIAL IV ONE (09:00)
[2020-08-16] MEDS: VANCOMYCIN 1250 MG IVPB SCH (09:08)
[2020-08-16] MEDS: Aspirin EC 81 mg TAB.EC (enteric coated) PO SCH (09:12)
[2020-08-16] MEDS: Isosorbide Mononit ER 60mg TAB PO SCH (09:13)
[2020-08-16] MEDS: Azithromycin 500 mg/250 ml NS 500 MG/250 ML BAG IVPB SCH (12:48)
[2020-08-16] MEDS: Insulin GLARGINE 100 un/ml 10 ml VIAL SUBCUT SCH (17:16)
[2020-08-17] MEDS: Meropenem 1 GM PREMIX(*) 1 GM/50 ML BAG IV SCH ×2 (03:44→16:09)
[2020-08-17 07:01] LABS: BUN/Creatinine Ratio 40.4 (8-20); Calcium 8.9 mg/dL (8.6-10.3); EGFR African American 59.5 (>60); EGFR Non-African American 49.2 (>60); Potassium 4.6 mmol/L (3.5-5.0)
[2020-08-17 07:06] LABS: ABS Basophils 0.1 10^3/ul (0-0.2); ABS Eosinophils 0.1 10^3/ul (0-0.6); ABS Neutrophils 6.2 10^3/ul (1.5-7.7); Eosinophil % 1.5 %; Hematocrit 25 % (35-47); Lymphocyte % 11.5 %; Mean Corpuscular HGB Conc 32 g/dL (31-36); Mean Corpuscular Hemoglobin 23 pg (27-31); Mean Corpuscular Volume 72 fL (80-97); Mean Platelet Volume 10.1 fL (7.4-10.4); Platelet Count 272 10^3/uL (150-450); Red Blood Count 3.49 10^6 /uL (3.70-4.87); Red Cell Distribution Width 21 % (10-15); White Blood Count 8.4 10^3/uL (3.5-10.8)
[2020-08-17] MEDS: Tiotropium Brom/Olodaterol MDI INH SCH (08:27)
[2020-08-17] MEDS: Aspirin EC 81 mg TAB.EC (enteric coated) PO SCH (08:34)
[2020-08-17] MEDS: Isosorbide Mononit ER 60mg TAB PO SCH (08:35)
[2020-08-17] MEDS: Furosemide 40 mg/4 ml IV VIAL IV SCH (08:35)
[2020-08-17] MEDS: Azithromycin 500 mg/250 ml NS 500 MG/250 ML BAG IVPB SCH (10:07)
[2020-08-17] MEDS: Insulin GLARGINE 100 un/ml 10 ml VIAL SUBCUT SCH (16:09)
[2020-08-17] MEDS ORDERED: Magnesium Hydroxide LIQ 30 ML UDC PO PRN (19:33)
[2020-08-18] MEDS: Meropenem 1 GM PREMIX(*) 1 GM/50 ML BAG IV SCH ×2 (03:22→15:29)
[2020-08-18 07:08] LABS: ABS Basophils 0.1 10^3/ul (0-0.2); ABS Eosinophils 0.1 10^3/ul (0-0.6); ABS Lymphocytes 1.3 10^3/ul (1.0-4.8); ABS Neutrophils 6.3 10^3/ul (1.5-7.7); Eosinophil % 1.7 %; Hematocrit 25 % (35-47); Lymphocyte % 14.9 %; Mean Corpuscular HGB Conc 32 g/dL (31-36); Mean Corpuscular Hemoglobin 23 pg (27-31); Mean Corpuscular Volume 72 fL (80-97); Mean Platelet Volume 10.1 fL (7.4-10.4); Platelet Count 279 10^3/uL (150-450); Red Blood Count 3.48 10^6 /uL (3.70-4.87); Red Cell Distribution Width 21 % (10-15); White Blood Count 8.9 10^3/uL (3.5-10.8)
[2020-08-18 07:23] LABS: BUN/Creatinine Ratio 37.8 (8-20); Calcium 9.5 mg/dL (8.6-10.3); EGFR African American 58.3 (>60); EGFR Non-African American 48.2 (>60); Potassium 4.6 mmol/L (3.5-5.0)
[2020-08-18] MEDS: Tiotropium Brom/Olodaterol MDI INH SCH (08:15)
[2020-08-18] MEDS: Furosemide 40 mg/4 ml IV VIAL IV SCH (08:48)
[2020-08-18] MEDS: Isosorbide Mononit ER 60mg TAB PO SCH (08:48)
[2020-08-18] MEDS: Aspirin EC 81 mg TAB.EC (enteric coated) PO SCH (08:48)
[2020-08-18] MEDS ORDERED: NS 0.9% 250 ml 250 ML IV ONE (12:52)
[2020-08-18] MEDS: Insulin GLARGINE 100 un/ml 10 ml VIAL SUBCUT SCH (17:11)
[2020-08-19] MEDS: Meropenem 1 GM PREMIX(*) 1 GM/50 ML BAG IV SCH ×2 (03:13→15:24)
[2020-08-19 07:15] LABS: ABS Basophils 0.1 10^3/ul (0-0.2); ABS Eosinophils 0.2 10^3/ul (0-0.6); ABS Lymphocytes 1.3 10^3/ul (1.0-4.8); ABS Monocytes 0.9 10^3/ul (0-0.8); ABS Neutrophils 5.6 10^3/ul (1.5-7.7); Eosinophil % 1.9 %; Hematocrit 25 % (35-47); Lymphocyte % 16.4 %; Mean Corpuscular HGB Conc 32 g/dL (31-36); Mean Corpuscular Hemoglobin 23 pg (27-31); Mean Corpuscular Volume 72 fL (80-97); Mean Platelet Volume 10.3 fL (7.4-10.4); Platelet Count 284 10^3/uL (150-450); Red Blood Count 3.47 10^6 /uL (3.70-4.87); Red Cell Distribution Width 21 % (10-15); White Blood Count 7.9 10^3/uL (3.5-10.8)
[2020-08-19 07:28] LABS: BUN/Creatinine Ratio 32.7 (8-20); Calcium 9.5 mg/dL (8.6-10.3); EGFR African American 60.8 (>60); EGFR Non-African American 50.3 (>60); Potassium 4.6 mmol/L (3.5-5.0)
[2020-08-19] MEDS: Tiotropium Brom/Olodaterol MDI INH SCH (08:15)
[2020-08-19] MEDS: Furosemide 40 mg/4 ml IV VIAL IV SCH (08:26)
[2020-08-19] MEDS: Aspirin EC 81 mg TAB.EC (enteric coated) PO SCH (08:45)
[2020-08-19] MEDS: Isosorbide Mononit ER 60mg TAB PO SCH (08:45)
[2020-08-19] MEDS: Insulin GLARGINE 100 un/ml 10 ml VIAL SUBCUT SCH (17:08)
[2020-08-20] MEDS: Meropenem 1 GM PREMIX(*) 1 GM/50 ML BAG IV SCH (04:19)
[2020-08-20] MEDS ORDERED: Iron Sucrose 200 MG in NS 0.9% 100 ml BAG 100 ML IVPB ONE (09:00)
[2020-08-20] MEDS: Tiotropium Brom/Olodaterol MDI INH SCH (09:41)
[2020-08-20] MEDS: Furosemide 40 mg/4 ml IV VIAL IV SCH (09:45)
[2020-08-20] MEDS: Aspirin EC 81 mg TAB.EC (enteric coated) PO SCH (09:45)
[2020-08-20] MEDS: Isosorbide Mononit ER 60mg TAB PO SCH (09:45)
[2020-08-20 13:07] VITALS: BP 108/51
== END 2020-08-20 14:40 | disposition home health service (06) | DRG 193 ==
LOC: ED 00:36 → ICU 03:19 → MED 08-14 17:00
PROVIDERS: ADMIT Student in an Organized Health Care Education/Training Program; ATTEND Internal Medicine

== ENCOUNTER 2021-04-19 09:05 | Inpatient (IN) ==
[2021-04-19 09:48] LABS: ABS Basophils 0.1 10^3/ul (0-0.2); ABS Eosinophils 0.1 10^3/ul (0-0.6); ABS Lymphocytes 0.7 10^3/ul (1.0-4.8); ABS Monocytes 0.8 10^3/ul (0-0.8); ABS Neutrophils 8.2 10^3/ul (1.5-7.7); Eosinophil % 1.1 %; Hematocrit 17 % (35-47); Hemoglobin 5.4 g/dL (12.0-16.0); Lymphocyte % 6.9 %; Mean Corpuscular HGB Conc 31 g/dL (31-36); Mean Corpuscular Hemoglobin 24 pg (27-31); Mean Corpuscular Volume 76 fL (80-97); Mean Platelet Volume 10.7 fL (7.4-10.4); Nucleated Red Blood Cells % 0.2; Platelet Count 234 10^3/uL (150-450); Red Blood Count 2.25 10^6 /uL (3.70-4.87); Red Cell Distribution Width 21 % (10-15); White Blood Count 9.8 10^3/uL (3.5-10.8)
[2021-04-19 09:54] LABS: Albumin 3.8 g/dL (3.2-5.2); Albumin/Globulin Ratio 1.7 (1-3); Calcium 9.4 mg/dL (8.6-10.3); EGFR African American 33.4 (>60); EGFR Non-African American 27.6 (>60); Globulin 2.3 g/dL (2-4); Potassium 4.1 mmol/L (3.5-5.0); Total Bilirubin 0.5 mg/dL (0.2-1.0); Total Protein 6.1 g/dL (6.4-8.9)
[2021-04-19 09:57] LABS: Activated Partial Thrombo Time 26.2 seconds (26.0-38.0); INR 1.13 (0.82-1.09)
[2021-04-19 10:58] LABS: Microcytosis 1+; Polychromasia 2+
[2021-04-19] MEDS ORDERED: NS 0.9% 1000 ml BAG 1,000 ML IV ONE (11:27)
[2021-04-19] MEDS ORDERED: Ondansetron 4 mg VIAL 2 MG/ML 2 ml VIAL IV PRN (14:00)
[2021-04-19] MEDS ORDERED: Albuterol HFA INHALER 8 gm MDI INH PRN (14:28)
[2021-04-19] MEDS ORDERED: Dextrose 50% Syringe 50 ml 25 GM/50 ML SYRINGE IV PUSH PRN (14:42)
[2021-04-19] MEDS: Mometasone/Formoter 200/5 MDI INH SCH (20:29)
[2021-04-19 21:14] LABS: Hematocrit 26 % (35-47); Hemoglobin 8.2 g/dL (12.0-16.0)
[2021-04-19] MEDS ORDERED: Furosemide 40 mg/4 ml IV VIAL IV ONE (23:55)
[2021-04-19] MEDS ORDERED: Albuterol/Ipratropium NEB.SOL (2.5/0.5 MG) 3 ML NEB.SOLN INH PRN (23:56)
[2021-04-20 06:01] LABS: Hematocrit 24 % (35-47); Hemoglobin 7.5 g/dL (12.0-16.0)
[2021-04-20 06:17] LABS: Anion Gap 7 mmol/L (2-11); CO2 Carbon Dioxide 24 mmol/L (22-32); Calcium 8.8 mg/dL (8.6-10.3); Chloride 104 mmol/L (101-111); Potassium 4.4 mmol/L (3.5-5.0); Sodium 135 mmol/L (135-145)
[2021-04-20 06:22] LABS: Blood Urea Nitrogen 37 mg/dL (6-24); EGFR African American 42.8 (>60); EGFR Non-African American 35.4 (>60); Glucose 176 mg/dL (70-100)
[2021-04-20] MEDS: Aspirin EC 81 mg TAB.EC (enteric coated) PO SCH (08:32)
[2021-04-20] MEDS: Isosorbide Mononit ER 60mg TAB PO SCH (08:33)
[2021-04-20] MEDS: SPIRIVA Respimat (tiotropium) 2.5 mcg/inh Inhaler INH SCH (10:07)
[2021-04-20] MEDS: Mometasone/Formoter 200/5 MDI INH SCH ×2 (10:09→19:07)
[2021-04-20] MEDS ORDERED: Midazolam 10 mg/10 ml VIAL 1 mg/ml 10 ml VIAL (10 mg) ONE (13:28)
[2021-04-20] MEDS ORDERED: fentaNYL 100 mcg/2 ml 50 MCG/ML VIAL ONE (13:28)
[2021-04-20 16:20] LABS: Total Iron Binding Capacity 431 mcg/dL (250-450); Transferrin 308 mg/dL (203-362)
[2021-04-20 16:23] LABS: % Iron Saturation 5 % (15-55); Iron < 20 ug/dL (50-212); Unsaturated Iron Binding < 416 ug/dL
[2021-04-20 16:27] LABS: Ferritin 10.7 ng/mL (11-307)
[2021-04-20] MEDS ORDERED: PEG 3000 GI LAVAGE 1 GALLON PO ONE (17:03)
[2021-04-20 19:11] LABS: Hematocrit 22 % (35-47)
[2021-04-21 06:14] LABS: Hematocrit 28 % (35-47); Hemoglobin 9.1 g/dL (12.0-16.0); Mean Corpuscular HGB Conc 32 g/dL (31-36); Mean Corpuscular Hemoglobin 26 pg (27-31); Mean Corpuscular Volume 79 fL (80-97); Mean Platelet Volume 10.7 fL (7.4-10.4); Platelet Count 211 10^3/uL (150-450); Red Blood Count 3.59 10^6 /uL (3.70-4.87); Red Cell Distribution Width 20 % (10-15); White Blood Count 9.2 10^3/uL (3.5-10.8)
[2021-04-21 06:30] LABS: Calcium 8.8 mg/dL (8.6-10.3); EGFR Non-African American 40.5 (>60); Potassium 3.6 mmol/L (3.5-5.0)
[2021-04-21] MEDS: Mometasone/Formoter 200/5 MDI INH SCH ×2 (07:01→19:04)
[2021-04-21] MEDS: SPIRIVA Respimat (tiotropium) 2.5 mcg/inh Inhaler INH SCH (07:40)
[2021-04-21] MEDS: Aspirin EC 81 mg TAB.EC (enteric coated) PO SCH (11:14)
[2021-04-21] MEDS: Isosorbide Mononit ER 60mg TAB PO SCH (11:14)
[2021-04-21 14:25] LABS: Hematocrit 24 % (35-47); Hemoglobin 7.8 g/dL (12.0-16.0); Mean Corpuscular HGB Conc 32 g/dL (31-36); Mean Corpuscular Hemoglobin 25 pg (27-31); Mean Corpuscular Volume 79 fL (80-97); Mean Platelet Volume 10.5 fL (7.4-10.4); Platelet Count 183 10^3/uL (150-450); Red Blood Count 3.08 10^6 /uL (3.70-4.87); Red Cell Distribution Width 20 % (10-15); White Blood Count 10.6 10^3/uL (3.5-10.8)
[2021-04-21] MEDS: Iron Sucrose 200 MG in NS 0.9% 100 ml BAG 100 ML IVPB SCH (16:40)
[2021-04-21 23:28] LABS: Hematocrit 24 % (35-47); Hemoglobin 7.8 g/dL (12.0-16.0)
[2021-04-22 05:05] LABS: ABS Basophils 0.1 10^3/ul (0-0.2); ABS Eosinophils 0.2 10^3/ul (0-0.6); ABS Lymphocytes 0.5 10^3/ul (1.0-4.8); ABS Monocytes 0.8 10^3/ul (0-0.8); ABS Neutrophils 7.1 10^3/ul (1.5-7.7); Eosinophil % 2.8 %; Hematocrit 25 % (35-47); Hemoglobin 8.1 g/dL (12.0-16.0); Lymphocyte % 5.4 %; Mean Corpuscular HGB Conc 32 g/dL (31-36); Mean Corpuscular Hemoglobin 25 pg (27-31); Mean Corpuscular Volume 79 fL (80-97); Mean Platelet Volume 10.4 fL (7.4-10.4); Nucleated Red Blood Cells % 0.1; Platelet Count 182 10^3/uL (150-450); Red Blood Count 3.19 10^6 /uL (3.70-4.87); Red Cell Distribution Width 19 % (10-15); White Blood Count 8.7 10^3/uL (3.5-10.8)
[2021-04-22 05:24] LABS: Calcium 8.8 mg/dL (8.6-10.3); EGFR African American 60.2 (>60); EGFR Non-African American 49.7 (>60); Potassium 3.6 mmol/L (3.5-5.0)
[2021-04-22] MEDS: Mometasone/Formoter 200/5 MDI INH SCH (07:32)
[2021-04-22] MEDS: SPIRIVA Respimat (tiotropium) 2.5 mcg/inh Inhaler INH SCH (07:32)
[2021-04-22] MEDS: Aspirin EC 81 mg TAB.EC (enteric coated) PO SCH (09:32)
[2021-04-22] MEDS: Isosorbide Mononit ER 60mg TAB PO SCH (09:33)
[2021-04-22] MEDS: Iron Sucrose 200 MG in NS 0.9% 100 ml BAG 100 ML IVPB SCH (09:34)
[2021-04-22 11:12] VITALS: BP 123/45
== END 2021-04-22 17:31 | disposition home or self-care (01) | DRG 811 ==
LOC: MEDTELE 09:05 → ED 09:05 → MEDTELE 14:18
PROVIDERS: ADMIT Internal Medicine; ATTEND Student in an Organized Health Care Education/Training Program

== ENCOUNTER 2022-07-07 12:38 | Observation (INO) ==
[~2022-07-07 12:38] MED LIST changes: -Acetaminophen TAB* 325 MG PO PRN; -Buffered Lidocaine 0.9% SYRIN* 5 ML/SYR SYRINGE INTRADERM ONE; +Buffered Lidocaine 1% SYRIN 1 ml INTRADERM ONE; +Lactated Ringers 1000 ml BAG 1,000 ML IV SCH
[2022-07-07] MEDS ORDERED: ROPIVACAINE 5 MG/ML 30 ML BTL (0.5%) ONE (17:57)
[2022-07-07] MEDS ORDERED: Midazolam 2 mg/2 ml VIAL 1 mg/ml 2 ml VIAL (2 mg) ONE (18:02)
[2022-07-07] MEDS ORDERED: Propofol 10 MG/ML 20 ML BTL ONE (18:28)
[2022-07-07] MEDS ORDERED: Lidocaine 2% PF 5 ML VIAL ONE (18:29)
[2022-07-07] MEDS ORDERED: Lidocaine 1% w EPI 1:200,000 SDV 30 ML VIAL ONE (18:39)
[2022-07-07] MEDS ORDERED: Clindamycin 900 MG/D5W BAG 900 MG/50 ML BAG IVPB ONE (18:57)
[2022-07-07] MEDS ORDERED: Succinylcholine 200 mg VIAL 20 mg/ml 10 ml VIAL (200 mg) ONE (19:04)
[2022-07-07] MEDS ORDERED: Rocuronium 50 mg VIAL 10 mg/ml 5 ml VIAL (50 mg) ONE (19:05)
[2022-07-07] MEDS ORDERED: Levalbuterol HFA INHALER MDI ONE (19:15)
[2022-07-07] MEDS ORDERED: fentaNYL 100 mcg/2 ml 50 MCG/ML VIAL ONE (19:50)
[2022-07-07] MEDS ORDERED: Lactulose 30 ml UDC PO PRN (21:10)
[2022-07-07] MEDS ORDERED: Magnesium Hydroxide LIQ 30 ML UDC PO PRN (21:10)
[2022-07-07] MEDS ORDERED: Ondansetron ODT 4 mg TAB 4 MG TAB PO PRN (21:10)
[2022-07-07] MEDS ORDERED: Ondansetron 4 mg VIAL 2 MG/ML 2 ml VIAL IV PRN (21:10)
[2022-07-07] MEDS ORDERED: Albuterol HFA INHALER 8 gm MDI INH PRN (21:19)
[2022-07-07 21:44] LABS: PCO2 Arterial 57 mmHg (35-45); PO2 Arterial 128 mmHg (80-100)
[2022-07-07] MEDS ORDERED: Lactated Ringers 1000 ml BAG 1,000 ML IV SCH (22:00)
[2022-07-08] MEDS: Clindamycin 600 MG/D5W BAG 600 MG/50 ML BAG IV SCH ×2 (03:16→11:42)
[2022-07-08 06:22] LABS: Hematocrit 26 % (35-47); Hemoglobin 7.9 g/dL (12.0-16.0); Mean Platelet Volume 10.4 fL (7.4-10.4); Platelet Count 268 10^3/uL (150-450)
[2022-07-08 06:46] LABS: Calcium 9.5 mg/dL (8.6-10.3); Potassium 4.2 mmol/L (3.5-5.0); eGFR CKD-EPI 52.7 (>60)
[2022-07-08] MEDS ORDERED: Mometasone/Formoter 200/5 MDI INH SCH (07:00)
[2022-07-08 07:36] VITALS: BP 139/78
[2022-07-08] MEDS ORDERED: Isosorbide Mononit ER 60mg TAB PO SCH (09:00)
[2022-07-08] MEDS ORDERED: Aspirin EC 81 mg TAB.EC (enteric coated) PO SCH (09:00)
[2022-07-08] MEDS ORDERED: Vitamin THERAPEUTIC TAB PO SCH (09:00)
[2022-07-08] MEDS ORDERED: SPIRIVA Respimat (tiotropium) 2.5 mcg/inh Inhaler INH SCH (09:00)
[2022-07-08] MEDS ORDERED: Magnesium Hydroxide LIQ 30 ML UDC PO SCH (09:00)
[2022-07-08] MEDS ORDERED: Fluticasone NASAL SPRAY 50MCG 16 gm SPRAY BTL INTRANASAL SCH (09:00)
== END 2022-07-08 16:00 | disposition home or self-care (01) ==
LOC: OR 12:38 → SSU 12:38
PROVIDERS: ADMIT Orthopaedic Surgery Sports Medicine; ATTEND Orthopaedic Surgery Sports Medicine

== ENCOUNTER 2022-07-16 17:09 | Inpatient (IN) ==
[2022-07-16 17:36] LABS: Hematocrit 27 % (35-47); Mean Corpuscular HGB Conc 30 g/dL (31-36); Mean Corpuscular Hemoglobin 21 pg (27-31); Mean Corpuscular Volume 67 fL (80-97); Mean Platelet Volume 9.5 fL (7.4-10.4); Platelet Count 338 10^3/uL (150-450); Red Blood Count 3.93 10^6 /uL (3.70-4.87); Red Cell Distribution Width 19 % (10-15); White Blood Count 9.2 10^3/uL (3.5-10.8)
[2022-07-16 18:07] LABS: Albumin 3.7 g/dL (3.2-5.2); Albumin/Globulin Ratio 1.5 (1-3); Calcium 9.6 mg/dL (8.6-10.3); Globulin 2.5 g/dL (2-4); Potassium 4.3 mmol/L (3.5-5.0); Total Bilirubin 0.6 mg/dL (0.2-1.0); Total Protein 6.2 g/dL (6.4-8.9)
[2022-07-16 19:10] LABS: ABS Basophils 0.1 10^3/ul (0-0.2); ABS Eosinophils 0.1 10^3/ul (0-0.6); ABS Lymphocytes 0.7 10^3/ul (1.0-4.8); ABS Monocytes 0.8 10^3/ul (0-0.8); ABS Neutrophils 7.5 10^3/ul (1.5-7.7); Eosinophil % 1.1 %; Lymphocyte % 7.7 %; Nucleated Red Blood Cells % 0.1
[2022-07-16] MEDS ORDERED: Lactated Ringers 1000 ml BAG 1,000 ML IV ONE (22:42)
[2022-07-16] MEDS ORDERED: Iodixanol (CONTRAST) 320 MG/ML 100 ML SDV IV ONE (22:55)
[2022-07-17 03:13] LABS: High Sensitivity Troponin 1 Hr 221 pg/mL (<15)
[2022-07-17] MEDS ORDERED: Furosemide 20 mg/2 ml IV VIAL IV ONE ×2 (04:40→10:01)
[2022-07-17] MEDS ORDERED: Albuterol HFA INHALER 8 gm MDI INH PRN (04:44)
[2022-07-17] MEDS ORDERED: Dextrose 50% Syringe 50 ml 25 GM/50 ML SYRINGE IV PUSH PRN (04:46)
[2022-07-17] MEDS: Enoxaparin 40 MG/0.4 ML SYR SUBCUT SCH (05:08)
[2022-07-17 05:22] LABS: C Reactive Protein 6.69 mg/L (<8.01)
[2022-07-17 05:43] LABS: Ferritin 12.7 ng/mL (11-307)
[2022-07-17 06:08] LABS: Hematocrit 25 % (35-47); Hemoglobin 7.7 g/dL (12.0-16.0); Mean Corpuscular HGB Conc 30 g/dL (31-36); Mean Corpuscular Hemoglobin 21 pg (27-31); Mean Corpuscular Volume 68 fL (80-97); Mean Platelet Volume 9.6 fL (7.4-10.4); Platelet Count 313 10^3/uL (150-450); Red Blood Count 3.73 10^6 /uL (3.70-4.87); Red Cell Distribution Width 18 % (10-15); White Blood Count 11.4 10^3/uL (3.5-10.8)
[2022-07-17 06:53] LABS: Calcium 9.4 mg/dL (8.6-10.3); Potassium 4.3 mmol/L (3.5-5.0); eGFR CKD-EPI 59.8 (>60)
[2022-07-17 09:49] LABS: Magnesium 1.8 mg/dL (1.9-2.7)
[2022-07-17] MEDS: Aspirin EC 81 mg TAB.EC (enteric coated) PO SCH (09:52)
[2022-07-17] MEDS: Isosorbide Mononit ER 60mg TAB PO SCH (09:52)
[2022-07-17] MEDS: Fluticasone NASAL SPRAY 50MCG 16 gm SPRAY BTL INTRANASAL SCH (09:53)
[2022-07-17] MEDS: Azithromycin 500 mg/250 ml NS 500 MG/250 ML BAG IVPB SCH (09:53)
[2022-07-17] MEDS ORDERED: Magnesium Sulfate 2 gm BAG 2 GM/50 ML BAG IVPB ONE (10:08)
[2022-07-17] MEDS: SPIRIVA Respimat (tiotropium) 2.5 mcg/inh Inhaler INH SCH (11:46)
[2022-07-17] MEDS: Mometasone/Formoter 200/5 MDI INH SCH ×2 (11:46→19:55)
[2022-07-18 06:22] LABS: Hematocrit 25 % (35-47); Hemoglobin 7.7 g/dL (12.0-16.0); Mean Corpuscular HGB Conc 31 g/dL (31-36); Mean Corpuscular Hemoglobin 21 pg (27-31); Mean Corpuscular Volume 67 fL (80-97); Mean Platelet Volume 9.7 fL (7.4-10.4); Platelet Count 297 10^3/uL (150-450); Red Blood Count 3.63 10^6 /uL (3.70-4.87); Red Cell Distribution Width 18 % (10-15); White Blood Count 7.4 10^3/uL (3.5-10.8)
[2022-07-18 06:57] LABS: Potassium 4.4 mmol/L (3.5-5.0)
[2022-07-18 08:11] LABS: Calcium 9.6 mg/dL (8.6-10.3); Magnesium 2.1 mg/dL (1.9-2.7); eGFR CKD-EPI 52.7 (>60)
[2022-07-18] MEDS: SPIRIVA Respimat (tiotropium) 2.5 mcg/inh Inhaler INH SCH (08:28)
[2022-07-18] MEDS: Mometasone/Formoter 200/5 MDI INH SCH ×2 (08:28→19:33)
[2022-07-18] MEDS: Enoxaparin 40 MG/0.4 ML SYR SUBCUT SCH (08:49)
[2022-07-18] MEDS: Fluticasone NASAL SPRAY 50MCG 16 gm SPRAY BTL INTRANASAL SCH (08:51)
[2022-07-18] MEDS: Aspirin EC 81 mg TAB.EC (enteric coated) PO SCH (08:53)
[2022-07-18] MEDS: Isosorbide Mononit ER 60mg TAB PO SCH (08:53)
[2022-07-18] MEDS: Azithromycin 500 mg/250 ml NS 500 MG/250 ML BAG IVPB SCH (09:35)
[2022-07-18] MEDS ORDERED: Furosemide 20 mg/2 ml IV VIAL IV SLOW PU ONE (10:37)
[2022-07-18] MEDS ORDERED: Dextrose 50% Syringe 50 ml 25 GM/50 ML SYRINGE IV PUSH PRN (14:58)
[2022-07-18] MEDS ORDERED: PEG 3000 GI LAVAGE 1 GALLON PO ONE (16:22)
[2022-07-18 17:57] LABS: Hematocrit 28 % (35-47); Hemoglobin 8.9 g/dL (12.0-16.0)
[2022-07-18] MEDS: Insulin GLARGINE 100 un/ml 10 ml VIAL SUBCUT SCH (20:51)
[2022-07-19 06:54] LABS: Calcium 9.6 mg/dL (8.6-10.3); Magnesium 1.9 mg/dL (1.9-2.7); Potassium 4.2 mmol/L (3.5-5.0); eGFR CKD-EPI 54.5 (>60)
[2022-07-19 07:11] LABS: Hematocrit 27 % (35-47); Hemoglobin 8.5 g/dL (12.0-16.0); Mean Corpuscular HGB Conc 32 g/dL (31-36); Mean Corpuscular Hemoglobin 22 pg (27-31); Mean Corpuscular Volume 69 fL (80-97); Mean Platelet Volume 9.3 fL (7.4-10.4); Platelet Count 278 10^3/uL (150-450); Red Blood Count 3.88 10^6 /uL (3.70-4.87); Red Cell Distribution Width 19 % (10-15)
[2022-07-19] MEDS ORDERED: Magnesium Sulfate 2 gm BAG 2 GM/50 ML BAG IVPB ONE (07:26)
[2022-07-19] MEDS: Mometasone/Formoter 200/5 MDI INH SCH ×2 (08:22→20:58)
[2022-07-19] MEDS: SPIRIVA Respimat (tiotropium) 2.5 mcg/inh Inhaler INH SCH (08:22)
[2022-07-19] MEDS: Isosorbide Mononit ER 60mg TAB PO SCH (08:36)
[2022-07-19] MEDS: Aspirin EC 81 mg TAB.EC (enteric coated) PO SCH (08:36)
[2022-07-19] MEDS: Fluticasone NASAL SPRAY 50MCG 16 gm SPRAY BTL INTRANASAL SCH (08:37)
[2022-07-19] MEDS: Enoxaparin 40 MG/0.4 ML SYR SUBCUT SCH (08:40)
[2022-07-19] MEDS ORDERED: Furosemide 40 mg/4 ml IV VIAL IV SLOW PU ONE (09:30)
[2022-07-19] MEDS ORDERED: Docusate LIQ 100 MG/10 ML UDC PO PRN (09:31)
[2022-07-19] MEDS ORDERED: Senna TAB 8.6 mg TAB PO PRN (09:32)
[2022-07-19] MEDS: Azithromycin 500 mg/250 ml NS 500 MG/250 ML BAG IVPB SCH (11:34)
[2022-07-19] MEDS ORDERED: PEG 3000 GI LAVAGE 1 GALLON PO ONE (16:00)
[2022-07-19] MEDS ORDERED: Ondansetron 4 mg VIAL 2 MG/ML 2 ml VIAL IV PRN (18:42)
[2022-07-19] MEDS: Insulin GLARGINE 100 un/ml 10 ml VIAL SUBCUT SCH (22:27)
[2022-07-19] MEDS ORDERED: D5NS 0.9% 1000 ml BAG 1,000 ML IV SCH (23:00)
[2022-07-20 06:50] LABS: Hematocrit 25 % (35-47); Hemoglobin 7.8 g/dL (12.0-16.0); Mean Corpuscular HGB Conc 31 g/dL (31-36); Mean Corpuscular Hemoglobin 22 pg (27-31); Mean Corpuscular Volume 69 fL (80-97); Mean Platelet Volume 9.7 fL (7.4-10.4); Platelet Count 275 10^3/uL (150-450); Red Blood Count 3.62 10^6 /uL (3.70-4.87); Red Cell Distribution Width 19 % (10-15); White Blood Count 7.3 10^3/uL (3.5-10.8)
[2022-07-20 07:20] LABS: Calcium 9.2 mg/dL (8.6-10.3); Potassium 4.1 mmol/L (3.5-5.0); eGFR CKD-EPI 55.4 (>60)
[2022-07-20] MEDS: Mometasone/Formoter 200/5 MDI INH SCH ×2 (07:42→20:44)
[2022-07-20] MEDS: SPIRIVA Respimat (tiotropium) 2.5 mcg/inh Inhaler INH SCH (07:42)
[2022-07-20] MEDS ORDERED: Furosemide 40 mg/4 ml IV VIAL IV SLOW PU ONE (08:22)
[2022-07-20] MEDS: Aspirin EC 81 mg TAB.EC (enteric coated) PO SCH (09:46)
[2022-07-20] MEDS: Isosorbide Mononit ER 60mg TAB PO SCH (09:47)
[2022-07-20] MEDS: Fluticasone NASAL SPRAY 50MCG 16 gm SPRAY BTL INTRANASAL SCH (09:48)
[2022-07-20] MEDS ORDERED: fentaNYL 100 mcg/2 ml 50 MCG/ML VIAL ONE (14:14)
[2022-07-20] MEDS ORDERED: Midazolam 10 mg/10 ml VIAL 1 mg/ml 10 ml VIAL (10 mg) ONE (14:14)
[2022-07-20] MEDS: Insulin GLARGINE 100 un/ml 10 ml VIAL SUBCUT SCH (21:25)
[2022-07-21 06:17] LABS: Hematocrit 30 % (35-47); Hemoglobin 9.2 g/dL (12.0-16.0); Mean Corpuscular HGB Conc 31 g/dL (31-36); Mean Corpuscular Hemoglobin 22 pg (27-31); Mean Corpuscular Volume 71 fL (80-97); Mean Platelet Volume 9.7 fL (7.4-10.4); Platelet Count 273 10^3/uL (150-450); Red Blood Count 4.21 10^6 /uL (3.70-4.87); Red Cell Distribution Width 21 % (10-15); White Blood Count 8.7 10^3/uL (3.5-10.8)
[2022-07-21 06:36] LABS: Calcium 9.1 mg/dL (8.6-10.3); Magnesium 1.8 mg/dL (1.9-2.7); Potassium 4.2 mmol/L (3.5-5.0); eGFR CKD-EPI 53.6 (>60)
[2022-07-21] MEDS ORDERED: Magnesium Sulfate IV 3 GM in NS 0.9% 100 ml BAG 100 ML IVPB ONE (07:29)
[2022-07-21] MEDS ORDERED: Furosemide 40 mg/4 ml IV VIAL IV SLOW PU ONE (07:30)
[2022-07-21] MEDS ORDERED: Iron Sucrose 20 MG/ML 5 ML VIAL IV PUSH ONE (07:35)
[2022-07-21] MEDS: SPIRIVA Respimat (tiotropium) 2.5 mcg/inh Inhaler INH SCH (07:57)
[2022-07-21] MEDS: Mometasone/Formoter 200/5 MDI INH SCH ×2 (07:57→19:42)
[2022-07-21] MEDS ORDERED: Iron Sucrose 200 MG in NS 0.9% 100 ml IVPB ONE (08:00)
[2022-07-21] MEDS: Isosorbide Mononit ER 60mg TAB PO SCH (08:51)
[2022-07-21] MEDS: Aspirin EC 81 mg TAB.EC (enteric coated) PO SCH (08:51)
[2022-07-21] MEDS: Fluticasone NASAL SPRAY 50MCG 16 gm SPRAY BTL INTRANASAL SCH (13:13)
[2022-07-21 14:16] LABS: Hb A 98.2 % (95.8-98.0); Hb A2 1.8 % (2.0-3.3)
[2022-07-21] MEDS: Insulin GLARGINE 100 un/ml 10 ml VIAL SUBCUT SCH (22:20)
[2022-07-22 05:42] LABS: Hematocrit 29 % (35-47); Hemoglobin 9.5 g/dL (12.0-16.0); Mean Corpuscular HGB Conc 33 g/dL (31-36); Mean Corpuscular Hemoglobin 23 pg (27-31); Mean Corpuscular Volume 71 fL (80-97); Platelet Count 267 10^3/uL (150-450); Red Cell Distribution Width 21 % (10-15); White Blood Count 7.4 10^3/uL (3.5-10.8)
[2022-07-22 06:14] LABS: Calcium 9.5 mg/dL (8.6-10.3); Magnesium 2.1 mg/dL (1.9-2.7); Potassium 4.5 mmol/L (3.5-5.0); eGFR CKD-EPI 49.2 (>60)
[2022-07-22] MEDS: Mometasone/Formoter 200/5 MDI INH SCH ×2 (07:40→21:21)
[2022-07-22] MEDS: SPIRIVA Respimat (tiotropium) 2.5 mcg/inh Inhaler INH SCH (07:41)
[2022-07-22] MEDS: Aspirin EC 81 mg TAB.EC (enteric coated) PO SCH (09:04)
[2022-07-22] MEDS: Fluticasone NASAL SPRAY 50MCG 16 gm SPRAY BTL INTRANASAL SCH (09:04)
[2022-07-22] MEDS: Isosorbide Mononit ER 60mg TAB PO SCH (09:04)
[2022-07-22] MEDS: Insulin GLARGINE 100 un/ml 10 ml VIAL SUBCUT SCH (20:28)
[2022-07-23] MEDS: Mometasone/Formoter 200/5 MDI INH SCH ×2 (07:28→21:30)
[2022-07-23] MEDS: SPIRIVA Respimat (tiotropium) 2.5 mcg/inh Inhaler INH SCH (07:28)
[2022-07-23] MEDS: Aspirin EC 81 mg TAB.EC (enteric coated) PO SCH (09:11)
[2022-07-23] MEDS: Isosorbide Mononit ER 60mg TAB PO SCH (09:12)
[2022-07-23] MEDS: Fluticasone NASAL SPRAY 50MCG 16 gm SPRAY BTL INTRANASAL SCH (09:14)
[2022-07-23] MEDS ORDERED: Furosemide 40 mg/4 ml IV VIAL IV SLOW PU ONE (09:55)
[2022-07-23] MEDS ORDERED: Iron Sucrose 200 MG in NS 0.9% 100 ml BAG 100 ML IVPB ONE (09:57)
[2022-07-23] MEDS: Insulin GLARGINE 100 un/ml 10 ml VIAL SUBCUT SCH (22:35)
[2022-07-24] MEDS: Mometasone/Formoter 200/5 MDI INH SCH (07:36)
[2022-07-24] MEDS: SPIRIVA Respimat (tiotropium) 2.5 mcg/inh Inhaler INH SCH (07:38)
[2022-07-24] MEDS: Aspirin EC 81 mg TAB.EC (enteric coated) PO SCH (09:21)
[2022-07-24] MEDS: Isosorbide Mononit ER 60mg TAB PO SCH (09:21)
[2022-07-24] MEDS: Fluticasone NASAL SPRAY 50MCG 16 gm SPRAY BTL INTRANASAL SCH (09:30)
[2022-07-24 13:07] VITALS: BP 102/57
== END 2022-07-24 13:40 | disposition home health service (06) | DRG 280 ==
LOC: ED 17:09 → EDHOLD 17:09 → SSU 07-17 08:40 → SUATTDRO 07-19 10:57 → MEDTELE 07-23 13:30
PROVIDERS: ADMIT Hospitalist; ATTEND Internal Medicine

== ENCOUNTER 2023-07-04 16:18 | Inpatient (IN) ==
[2023-07-04 17:29] LABS: Hematocrit 33.5 % (35-45); Hemoglobin 10.5 g/dL (11.5-14.3); Mean Corpuscular Hemoglobin 22.1 pg (27-33); Mean Corpuscular Hgb Conc 31.4 g/dL (31-36); Mean Corpuscular Volume 70.4 fL (80-97); Red Blood Count 4.77 10^6/uL (3.63-4.92); Red Cell Distribution Width 18.7 % (12-17); White Blood Count 8.5 10^3/uL (3.8-11.8)
[2023-07-04 17:30] LABS: Urine Appearance Clear; Urine Bilirubin Negative (Negative); Urine Blood Negative (Negative); Urine Color Straw; Urine Glucose 3+(>=500 mg/dL) (Negative); Urine Ketones Negative (Negative); Urine Nitrite Negative (Negative); Urine Protein Negative (Negative); Urine Specific Gravity 1.007 (1.002-1.030); Urine Urobilinogen Negative (Negative)
[2023-07-04 17:34] LABS: INR 1.09 (0.83-1.13)
[2023-07-04 17:43] LABS: Albumin 3.7 g/dL (3.2-5.2); Anion Gap 8 mmol/L (2-16); Blood Urea Nitrogen 24 mg/dL (6-24); CO2 Carbon Dioxide 25 mmol/L (22-32); Calcium 9.2 mg/dL (8.6-10.3); Chloride 100 mmol/L (101-111); Creatinine, Serum 1.34 mg/dL (0.51-0.95); Glucose 240 mg/dL (70-100); Potassium 4.1 mmol/L (3.5-5.0); Sodium 133 mmol/L (135-145); Total Protein 5.8 g/dL (6.4-8.9); eGFR CKD-EPI 41.4 (>60)
[2023-07-04 17:44] LABS: ALT 52 U/L (7-52); AST 32 U/L (13-39); Albumin/Globulin Ratio 1.8 (1-3); Alkaline Phosphatase 74 U/L (35-149); Globulin 2.1 g/dL (2-4); High Sens Troponin Baseline 26 pg/mL (<15)
[2023-07-04 17:48] LABS: Tear Drop Cells 1+
[2023-07-04] MEDS ORDERED: Furosemide 40 mg/4 ml IV VIAL IV SLOW PU ONE (17:48)
[2023-07-04 17:49] LABS: ABS Basophils 0.2 10^3/uL (0.0-0.1); ABS Eosinophils 0.1 10^3/uL (0.0-0.5); ABS Lymphocytes 0.8 10^3/uL (1.0-4.8); ABS Neutrophils 6.5 10^3/uL (1.5-7.6); ABS Nucleated RBC 0.01 10^3/ul; Anisocytosis 1+; Eosinophil % 1.6 %; Lymphocyte % 9.6 %; Mean Platelet Volume 10.4 fL (7.5-11.2); Microcytosis 2+; Nucleated Red Blood Cells % 0.1 /100 WBC (0.0-0.4); Platelet Count 263 10^3/uL (150-450)
[2023-07-04 18:23] LABS: TSH Ultra Thyroid Stim Horm 2.73 mcIU/mL (0.34-5.60)
[2023-07-04 18:58] LABS: High Sensitivity Troponin 1 Hr 26 pg/mL (<15)
[2023-07-04] MEDS ORDERED: Magnesium Hydroxide LIQ 30 ML UDC PO PRN (19:11)
[2023-07-04] MEDS ORDERED: dilTIAZem 30 MG TAB PO ONE (19:18)
[2023-07-04] MEDS ORDERED: Albuterol 2.5mg/3 ml (0.083%) NEB.SOLN INH PRN (19:38)
[2023-07-04] MEDS ORDERED: Albuterol HFA INHALER 8 gm MDI INH PRN (19:38)
[2023-07-04 20:19] LABS: % Iron Saturation 5 % (15-55); .Transferrin 284 mg/dL (203-362); Iron < 20 ug/dL (50-212); Total Iron Binding Capacity 398 mcg/dL (250-450); Unsaturated Iron Binding 378 ug/dL
[2023-07-04] MEDS ORDERED: Bumetanide IV 0.25 MG/ML 4 ml VIAL (1 mg) IV SLOW PU ONE (20:31)
[2023-07-04 20:37] LABS: Ferritin 10.5 ng/mL (11-307)
[2023-07-04] MEDS: Levalbuterol 0.63MG/3ML NEB UNIT OF USE INH SCH (21:12)
[2023-07-04] MEDS: Enoxaparin 40 MG/0.4 ML SYR SUBCUT SCH (22:25)
[2023-07-04] MEDS: Senna TAB 8.6 mg TAB PO SCH (22:30)
[2023-07-04] MEDS ORDERED: Dextrose 50% Syringe 50 ml 25 GM/50 ML SYRINGE IV PUSH PRN (22:38)
[2023-07-04] MEDS ORDERED: Magnesium Sulfate 2 gm BAG 2 GM/50 ML BAG IVPB ONE (22:47)
[2023-07-05] MEDS: Levalbuterol 0.63MG/3ML NEB UNIT OF USE INH SCH ×7 (01:31→19:53)
[2023-07-05] MEDS ORDERED: dilTIAZem 30 MG TAB PO SCH (02:00)
[2023-07-05] MEDS: Ferric Gluconate IV 125 MG in NS 0.9% 100 ml BAG 100 ML IVPB SCH ×2 (02:14→10:52)
[2023-07-05] MEDS ORDERED: Ondansetron ODT 4 mg TAB 4 MG TAB SL PRN (03:36)
[2023-07-05] MEDS: Bumetanide IV 0.25 MG/ML 4 ml VIAL (1 mg) IV SLOW PU SCH ×2 (05:52→15:30)
[2023-07-05 06:07] LABS: ABS Basophils 0.1 10^3/uL (0.0-0.1); ABS Eosinophils 0.1 10^3/uL (0.0-0.5); ABS Lymphocytes 0.6 10^3/uL (1.0-4.8); ABS Monocytes 1.2 10^3/uL (0.0-0.9); ABS Neutrophils 7.7 10^3/uL (1.5-7.6); Eosinophil % 0.8 %; Hematocrit 34.5 % (35-45); Hemoglobin 10.7 g/dL (11.5-14.3); Lymphocyte % 6.3 %; Mean Corpuscular Volume 70.8 fL (80-97); Red Blood Count 4.87 10^6/uL (3.63-4.92); Red Cell Distribution Width 19.1 % (12-17); White Blood Count 9.7 10^3/uL (3.8-11.8)
[2023-07-05 06:20] LABS: Calcium 9.3 mg/dL (8.6-10.3); Creatinine, Serum 1.4 mg/dL (0.51-0.95); Magnesium 2.9 mg/dL (1.9-2.7); Potassium 3.9 mmol/L (3.5-5.0); eGFR CKD-EPI 39.2 (>60)
[2023-07-05 07:13] LABS: Mean Platelet Volume 10.8 fL (7.5-11.2); Platelet Count 277 10^3/uL (150-450)
[2023-07-05] MEDS: SPIRIVA Respimat (tiotropium) 2.5 mcg/inh Inhaler INH SCH (07:26)
[2023-07-05] MEDS: Mometasone/Formoter 200/5 MDI INH SCH ×2 (07:27→20:00)
[2023-07-05] MEDS: Aspirin EC 81 mg TAB.EC (enteric coated) PO SCH (08:20)
[2023-07-05] MEDS ORDERED: Aspirin EC 81 mg TAB.EC (enteric coated) PO SCH (09:00)
[2023-07-05] MEDS: Polyethylene Glycol 3350 17 GM PACKET PO SCH (09:19)
[2023-07-05] MEDS: NF: DAPAGLIFLOZIN 10 MG TAB (NF) PO SCH (10:53)
[2023-07-05] MEDS: Fluticasone NASAL SPRAY 50MCG 16 gm SPRAY BTL INTRANASAL SCH (11:36)
[2023-07-05] MEDS ORDERED: Furosemide 40 mg/4 ml IV VIAL IV SCH (12:00)
[2023-07-05] MEDS ORDERED: Digoxin IV 0.5 MG/2 ML AMP (0.25 MG/ML) IV SLOW PU ONE (20:24)
[2023-07-05] MEDS: Enoxaparin 40 MG/0.4 ML SYR SUBCUT SCH (21:11)
[2023-07-05] MEDS: Senna TAB 8.6 mg TAB PO SCH (21:11)
[2023-07-06] MEDS: Levalbuterol 0.63MG/3ML NEB UNIT OF USE INH SCH ×3 (02:16→12:53)
[2023-07-06] MEDS: Furosemide 40 mg/4 ml IV VIAL IV SCH ×2 (06:06→08:38)
[2023-07-06 06:58] LABS: Creatinine, Serum 1.31 mg/dL (0.51-0.95); Magnesium 2.1 mg/dL (1.9-2.7); Potassium 4.2 mmol/L (3.5-5.0); eGFR CKD-EPI 42.5 (>60)
[2023-07-06 07:07] LABS: Hematocrit 34.1 % (35-45); Hemoglobin 10.5 g/dL (11.5-14.3); Mean Corpuscular Hemoglobin 21.6 pg (27-33); Mean Corpuscular Hgb Conc 30.8 g/dL (31-36); Mean Corpuscular Volume 70.1 fL (80-97); Red Blood Count 4.87 10^6/uL (3.63-4.92); Red Cell Distribution Width 18.3 % (12-17); White Blood Count 8.3 10^3/uL (3.8-11.8)
[2023-07-06 07:33] LABS: Mean Platelet Volume 10.3 fL (7.5-11.2); Platelet Count 257 10^3/uL (150-450)
[2023-07-06] MEDS: Mometasone/Formoter 200/5 MDI INH SCH ×2 (07:38→19:30)
[2023-07-06] MEDS: SPIRIVA Respimat (tiotropium) 2.5 mcg/inh Inhaler INH SCH (07:38)
[2023-07-06] MEDS: Polyethylene Glycol 3350 17 GM PACKET PO SCH (08:31)
[2023-07-06] MEDS: Aspirin EC 81 mg TAB.EC (enteric coated) PO SCH (08:32)
[2023-07-06] MEDS: Fluticasone NASAL SPRAY 50MCG 16 gm SPRAY BTL INTRANASAL SCH (08:36)
[2023-07-06] MEDS: NF: DAPAGLIFLOZIN 10 MG TAB (NF) PO SCH (08:37)
[2023-07-06 13:14] LABS: Calcium 9.3 mg/dL (8.6-10.3); Creatinine, Serum 1.22 mg/dL (0.51-0.95); Potassium 3.8 mmol/L (3.5-5.0); eGFR CKD-EPI 46.3 (>60)
[2023-07-06] MEDS: Ferric Gluconate IV 125 MG in NS 0.9% 100 ml BAG 100 ML IVPB SCH (15:03)
[2023-07-06] MEDS ORDERED: Furosemide 40 mg/4 ml IV VIAL IV ONE (15:53)
[2023-07-06] MEDS: KCL 10 MEQ/50 ML IVPREMIX 10 MEQ/50 ML BAG IV SCH ×2 (16:54→20:30)
[2023-07-06] MEDS: Levalbuterol 1.25MG/0.5ML NEB.SOL INH SCH (19:33)
[2023-07-06] MEDS ORDERED: Potassium Chlor 20 meq TAB.ER PO ONE (20:21)
[2023-07-06] MEDS: Enoxaparin 40 MG/0.4 ML SYR SUBCUT SCH (21:04)
[2023-07-06] MEDS: Senna TAB 8.6 mg TAB PO SCH (21:04)
[2023-07-07 06:10] LABS: ABS Basophils 0.1 10^3/uL (0.0-0.1); ABS Eosinophils 0.1 10^3/uL (0.0-0.5); ABS Lymphocytes 0.5 10^3/uL (1.0-4.8); ABS Monocytes 1.2 10^3/uL (0.0-0.9); ABS Neutrophils 4.4 10^3/uL (1.5-7.6); ABS Nucleated RBC 0.01 10^3/ul; Eosinophil % 2.1 %; Hemoglobin 10.5 g/dL (11.5-14.3); Lymphocyte % 8.6 %; Mean Corpuscular Hemoglobin 22.1 pg (27-33); Mean Corpuscular Hgb Conc 31.8 g/dL (31-36); Mean Corpuscular Volume 69.5 fL (80-97); Mean Platelet Volume 10.2 fL (7.5-11.2); Nucleated Red Blood Cells % 0.2 /100 WBC (0.0-0.4); Platelet Count 252 10^3/uL (150-450); Red Blood Count 4.75 10^6/uL (3.63-4.92); Red Cell Distribution Width 18.8 % (12-17); White Blood Count 6.3 10^3/uL (3.8-11.8)
[2023-07-07 06:23] LABS: Calcium 9.2 mg/dL (8.6-10.3); Creatinine, Serum 1.16 mg/dL (0.51-0.95); Magnesium 1.9 mg/dL (1.9-2.7); Potassium 4.4 mmol/L (3.5-5.0); eGFR CKD-EPI 49.2 (>60)
[2023-07-07] MEDS: Mometasone/Formoter 200/5 MDI INH SCH ×2 (06:56→19:38)
[2023-07-07] MEDS: Levalbuterol 1.25MG/0.5ML NEB.SOL INH SCH ×3 (06:56→19:38)
[2023-07-07] MEDS: SPIRIVA Respimat (tiotropium) 2.5 mcg/inh Inhaler INH SCH (07:01)
[2023-07-07] MEDS: Fluticasone NASAL SPRAY 50MCG 16 gm SPRAY BTL INTRANASAL SCH (08:46)
[2023-07-07] MEDS: Furosemide 40 mg/4 ml IV VIAL IV SCH (08:47)
[2023-07-07] MEDS: Aspirin EC 81 mg TAB.EC (enteric coated) PO SCH (08:47)
[2023-07-07] MEDS: Polyethylene Glycol 3350 17 GM PACKET PO SCH (08:48)
[2023-07-07] MEDS: NF: DAPAGLIFLOZIN 10 MG TAB (NF) PO SCH (08:59)
[2023-07-07] MEDS: Ferric Gluconate IV 125 MG in NS 0.9% 100 ml BAG 100 ML IVPB SCH (12:53)
[2023-07-07] MEDS ORDERED: Furosemide 40 mg/4 ml IV VIAL IV ONE (14:00)
[2023-07-07] MEDS: Enoxaparin 40 MG/0.4 ML SYR SUBCUT SCH (21:25)
[2023-07-07] MEDS: Senna TAB 8.6 mg TAB PO SCH (21:26)
[2023-07-08 06:42] LABS: Calcium 9.3 mg/dL (8.6-10.3); Creatinine, Serum 1.29 mg/dL (0.51-0.95); Potassium 4.3 mmol/L (3.5-5.0); eGFR CKD-EPI 43.3 (>60)
[2023-07-08] MEDS: Mometasone/Formoter 200/5 MDI INH SCH (07:27)
[2023-07-08] MEDS: Levalbuterol 1.25MG/0.5ML NEB.SOL INH SCH ×2 (07:27→13:00)
[2023-07-08] MEDS: SPIRIVA Respimat (tiotropium) 2.5 mcg/inh Inhaler INH SCH (07:28)
[2023-07-08] MEDS ORDERED: Dextrose 50% Syringe 50 ml 25 GM/50 ML SYRINGE IV PUSH PRN (07:45)
[2023-07-08] MEDS: Fluticasone NASAL SPRAY 50MCG 16 gm SPRAY BTL INTRANASAL SCH (09:05)
[2023-07-08] MEDS: Aspirin EC 81 mg TAB.EC (enteric coated) PO SCH (09:06)
[2023-07-08] MEDS: NF: DAPAGLIFLOZIN 10 MG TAB (NF) PO SCH (09:07)
[2023-07-08] MEDS: Ferric Gluconate IV 125 MG in NS 0.9% 100 ml BAG 100 ML IVPB SCH (09:07)
[2023-07-08] MEDS: Polyethylene Glycol 3350 17 GM PACKET PO SCH (09:07)
[2023-07-08 11:02] VITALS: BP 123/65
[2023-07-08] MEDS ORDERED: Insulin GLARGINE 100 un/ml 10 ml VIAL SUBCUT SCH ×2 (21:00)
== END 2023-07-08 14:27 | disposition home or self-care (01) | DRG 291 ==
LOC: ED 16:18 → SUATTDRO 18:59 → EDHOLD 18:59 → MEDTELE 21:46
PROVIDERS: ADMIT Internal Medicine; ATTEND Internal Medicine

== ENCOUNTER 2024-12-13 12:15 | Inpatient (IN) ==
[2024-12-13] MEDS: Azithromycin 500 mg/250 ml NS 500 MG/250 ML BAG IVPB ONE (12:57)
[2024-12-13] MEDS: methylPREDNISolone SOD SUCC 125 mg 2 ML VIAL IV ONE (12:57)
[2024-12-13 13:00] LABS: Venous Bicarbonate HCO3 18.3 mmol/L (24-28)
[2024-12-13 13:01] LABS: ABS Basophils 0.1 10^3/uL (0.0-0.1); ABS Lymphocytes 0.8 10^3/uL (1.0-4.8); ABS Monocytes 1.7 10^3/uL (0.0-0.9); ABS Neutrophils 11.5 10^3/uL (1.5-7.6); ABS Nucleated RBC 0.01 10^3/ul; Hematocrit 32.8 % (35-45); Hemoglobin 9.8 g/dL (11.5-14.3); Lymphocyte % 5.8 %; Mean Corpuscular Hemoglobin 21.6 pg (27-33); Mean Corpuscular Hgb Conc 29.9 g/dL (31-36); Mean Corpuscular Volume 72.2 fL (80-97); Mean Platelet Volume 9.4 fL (7.5-11.2); Platelet Count 287 10^3/uL (150-450); Red Blood Count 4.54 10^6/uL (3.63-4.92); Red Cell Distribution Width 23.4 % (12-17)
[2024-12-13 13:10] LABS: INR 1.68 (0.85-1.14)
[2024-12-13 13:20] LABS: ALT 12 U/L (7-52); AST 19 U/L (13-39); Albumin 4.5 g/dL (3.5-5.7); Alkaline Phosphatase 65 U/L (35-149); Anion Gap 7 mmol/L (2-16); Blood Urea Nitrogen 23 mg/dL (6-24); CO2 Carbon Dioxide 23 mmol/L (22-32); Calcium 9.7 mg/dL (8.6-10.3); Chloride 100 mmol/L (101-111); Creatinine, Serum 1.21 mg/dL (0.51-0.95); Globulin 2.3 g/dL (2-4); Glucose 213 mg/dL (70-100); Potassium 5.4 mmol/L (3.5-5.0); Sodium 130 mmol/L (135-145); Total Bilirubin 0.6 mg/dL (0.2-1.0); Total Protein 6.8 g/dL (6.4-8.9); eGFR CKD-EPI 46.2 (>60)
[2024-12-13] MEDS: Albuterol 2.5mg/3 ml (0.083%) NEB.SOLN INH ONE (13:21)
[2024-12-13 13:22] LABS: High Sens Troponin Baseline 42 pg/mL (<15)
[2024-12-13 14:21] LABS: High Sensitivity Troponin 1 Hr 42 pg/mL (<15)
[2024-12-13] MEDS: Furosemide 40 mg/4 ml IV VIAL IV ONE ×2 (14:26→18:44)
[2024-12-13] MEDS: Aztreonam 2 GM in NS 0.9% 50 ML 50 ML IVPB ONE (14:26)
[2024-12-13] MEDS ORDERED: Dextrose 50% Syringe 50 ml 25 GM/50 ML SYRINGE IV PUSH PRN (17:10)
[2024-12-13 17:14] LABS: Resp Rate 14
[2024-12-13 17:15] LABS: PCO2 Arterial 39 mmHg (35-45); PO2 Arterial 95 mmHg (80-100)
[2024-12-13 17:48] LABS: % Iron Saturation 4 % (15-55); .Transferrin 321 mg/dL (203-362); C Reactive Protein 35.47 mg/L (<8.01); Iron < 20 ug/dL (50-212); Total Iron Binding Capacity 449 mcg/dL (250-450); Unsaturated Iron Binding 429 ug/dL
[2024-12-13 18:10] LABS: Ferritin 23.4 ng/mL (11-307)
[2024-12-13 18:13] LABS: Folate > 20.00 ng/mL (5.90-24.80)
[2024-12-13 18:14] LABS: Vitamin B12 139 pg/mL (180-914)
[2024-12-13] MEDS: Mometasone/Formoter 200/5 MDI INH SCH (18:17)
[2024-12-13] MEDS: Albuterol 2.5mg/3 ml (0.083%) NEB.SOLN INH SCH (18:49)
[2024-12-13] MEDS ORDERED: Albuterol 2.5mg/3 ml (0.083%) NEB.SOLN INH SCH (19:00)
[2024-12-13 19:09] LABS: Urine Appearance Clear; Urine Bilirubin Negative (Negative); Urine Blood Negative (Negative); Urine Color Light-Yellow; Urine Glucose 4+ (>=1000 mg/dL) (Negative); Urine Ketones Negative (Negative); Urine Nitrite Negative (Negative); Urine Protein Trace (Negative); Urine Urobilinogen Negative (Negative)
[2024-12-13] MEDS: DOXYcycline 100 MG in NS 0.9% 250 ml 250 ML IVPB SCH (21:25)
[2024-12-14] MEDS: Metoprolol Tartrate 5 mg VIAL 5 ml VIAL (1 mg/ml) IV PRN (00:50)
[2024-12-14 03:01] LABS: ABS Lymphocytes 0.3 10^3/uL (1.0-4.8); ABS Monocytes 0.5 10^3/uL (0.0-0.9); Hematocrit 27.6 % (35-45); Hemoglobin 8.5 g/dL (11.5-14.3); Lymphocyte % 4.6 %; Mean Corpuscular Volume 71.2 fL (80-97); Mean Platelet Volume 9.3 fL (7.5-11.2); Platelet Count 233 10^3/uL (150-450); Red Blood Count 3.87 10^6/uL (3.63-4.92); White Blood Count 6.8 10^3/uL (3.8-11.8)
[2024-12-14 04:13] LABS: Albumin 3.5 g/dL (3.5-5.7); Albumin/Globulin Ratio 1.6 (1-3); Calcium 8.9 mg/dL (8.6-10.3); Creatinine, Serum 1.34 mg/dL (0.51-0.95); Globulin 2.2 g/dL (2-4); Magnesium 1.9 mg/dL (1.9-2.7); Potassium 4.2 mmol/L (3.5-5.0); Total Bilirubin 0.4 mg/dL (0.2-1.0); Total Protein 5.7 g/dL (6.4-8.9); eGFR CKD-EPI 40.8 (>60)
[2024-12-14] MEDS: Magnesium Sulfate 2 gm BAG 2 GM/50 ML BAG IVPB ONE (05:49)
[2024-12-14] MEDS: SPIRIVA Respimat (tiotropium) 2.5 mcg/inh Inhaler INH SCH (08:23)
[2024-12-14] MEDS: CMCS:DAPAGLIFLOZIN 10 MG TAB (NF) PO SCH (08:50)
[2024-12-14] MEDS: Metoprolol Tartrate 5 mg VIAL 5 ml VIAL (1 mg/ml) IV ONE (12:21)
[2024-12-14] MEDS ORDERED: Sulfur Hexaflouride MICROSPHR 25 MG VIAL IV PRN (15:39)
[2024-12-14] MEDS: Diltiazem Infusion @ 5 MG/HR - (MEDTELE ONLY, no titration) IV SCH (17:30)
[2024-12-14] MEDS ORDERED: Levalbuterol 0.63MG/3ML NEB UNIT OF USE INH SCH (19:00)
[2024-12-14] MEDS: Levalbuterol 1.25MG/0.5ML NEB.SOL INH SCH (19:41)
[2024-12-14 20:54] LABS: Calcium 8.8 mg/dL (8.6-10.3); Creatinine, Serum 1.88 mg/dL (0.51-0.95); Potassium 4.9 mmol/L (3.5-5.0); eGFR CKD-EPI 27.2 (>60)
[2024-12-14 21:38] LABS: Glucose Confirmatory 487 mg/dL (70-100)
[2024-12-15 05:59] LABS: Hematocrit 25.9 % (35-45); Hemoglobin 8.1 g/dL (11.5-14.3); Mean Corpuscular Hemoglobin 21.8 pg (27-33); Mean Corpuscular Hgb Conc 31.1 g/dL (31-36); Mean Corpuscular Volume 70.1 fL (80-97); Mean Platelet Volume 10.1 fL (7.5-11.2); Platelet Count 265 10^3/uL (150-450); White Blood Count 10.9 10^3/uL (3.8-11.8)
[2024-12-15 06:00] LABS: ABS Lymphocytes 0.6 10^3/uL (1.0-4.8); ABS Monocytes 1.1 10^3/uL (0.0-0.9); ABS Neutrophils 9.2 10^3/uL (1.5-7.6); ABS Nucleated RBC 0.01 10^3/ul; Lymphocyte % 5.6 %; Nucleated Red Blood Cells % 0.1 %/100WBC (0.0-0.8)
[2024-12-15 06:31] LABS: Albumin 3.4 g/dL (3.5-5.7); Albumin/Globulin Ratio 1.6 (1-3); Calcium 9.1 mg/dL (8.6-10.3); Creatinine, Serum 1.51 mg/dL (0.51-0.95); Globulin 2.1 g/dL (2-4); Magnesium 2.5 mg/dL (1.9-2.7); Phosphorus 3.4 mg/dL (2.5-5.0); Potassium 4.1 mmol/L (3.5-5.0); Total Bilirubin 0.3 mg/dL (0.2-1.0); Total Protein 5.5 g/dL (6.4-8.9); eGFR CKD-EPI 35.4 (>60)
[2024-12-15] MEDS ORDERED: Levalbuterol 1.25MG/0.5ML NEB.SOL INH PRN (13:21)
[2024-12-15 21:57] LABS: Calcium 8.9 mg/dL (8.6-10.3); Creatinine, Serum 1.55 mg/dL (0.51-0.95); Potassium 5.4 mmol/L (3.5-5.0); eGFR CKD-EPI 34.3 (>60)
[2024-12-16] MEDS: Metoprolol Tartrate 5 mg VIAL 5 ml VIAL (1 mg/ml) IV ONE (03:11)
[2024-12-16 06:22] LABS: ABS Lymphocytes 0.6 10^3/uL (1.0-4.8); ABS Monocytes 0.6 10^3/uL (0.0-0.9); ABS Neutrophils 6.8 10^3/uL (1.5-7.6); Hemoglobin 8.4 g/dL (11.5-14.3); Lymphocyte % 7.2 %; Mean Corpuscular Hemoglobin 22.1 pg (27-33); Mean Corpuscular Hgb Conc 31.1 g/dL (31-36); Mean Platelet Volume 9.6 fL (7.5-11.2); Platelet Count 248 10^3/uL (150-450); Red Cell Distribution Width 23.2 % (12-17)
[2024-12-16 06:32] LABS: Albumin 3.4 g/dL (3.5-5.7); Albumin/Globulin Ratio 1.5 (1-3); Calcium 8.9 mg/dL (8.6-10.3); Creatinine, Serum 1.26 mg/dL (0.51-0.95); Globulin 2.2 g/dL (2-4); Magnesium 2.2 mg/dL (1.9-2.7); Potassium 4.7 mmol/L (3.5-5.0); Total Bilirubin 0.3 mg/dL (0.2-1.0); Total Protein 5.6 g/dL (6.4-8.9)
[2024-12-16] MEDS ORDERED: Metoprolol Tartrate 5 mg VIAL 5 ml VIAL (1 mg/ml) IV PRN ×2 (18:53→22:06)
[2024-12-16 20:22] LABS: Creatinine, Serum 1.31 mg/dL (0.51-0.95); Potassium 5.3 mmol/L (3.5-5.0)
[2024-12-17 08:19] LABS: Hematocrit 28.7 % (35-45); Mean Corpuscular Hemoglobin 22.3 pg (27-33); Mean Corpuscular Hgb Conc 31.4 g/dL (31-36); Mean Corpuscular Volume 71.1 fL (80-97); Mean Platelet Volume 9.5 fL (7.5-11.2); Platelet Count 265 10^3/uL (150-450); Red Blood Count 4.03 10^6/uL (3.63-4.92); Red Cell Distribution Width 23.1 % (12-17); White Blood Count 8.2 10^3/uL (3.8-11.8)
[2024-12-17 08:35] LABS: Albumin 3.7 g/dL (3.5-5.7); Albumin/Globulin Ratio 1.5 (1-3); Calcium 9.7 mg/dL (8.6-10.3); Creatinine, Serum 1.17 mg/dL (0.51-0.95); Globulin 2.4 g/dL (2-4); Potassium 4.5 mmol/L (3.5-5.0); Total Bilirubin 0.4 mg/dL (0.2-1.0); Total Protein 6.1 g/dL (6.4-8.9); eGFR CKD-EPI 48.1 (>60)
[2024-12-17 08:51] LABS: ABS Lymphocytes 1.5 10^3/uL (1.0-4.8); ABS Monocytes 0.8 10^3/uL (0.0-0.9); ABS Neutrophils 5.9 10^3/uL (1.5-7.6); ABS Nucleated RBC 0.02 10^3/ul; Anisocytosis 2+; Hypochromasia 1+; Lymphocyte % 17.8 %; Microcytosis 1+; Nucleated Red Blood Cells % 0.2 %/100WBC (0.0-0.8); Polychromasia 1+
[2024-12-17] MEDS ORDERED: Metoprolol Tartrate 5 mg VIAL 5 ml VIAL (1 mg/ml) IV PRN (10:31)
[2024-12-17 18:35] VITALS: BP 152/108
== END 2024-12-17 18:43 | disposition home or self-care (01) | DRG 871 ==
LOC: ED 12:15 → EDHOLD 15:08 → SUATTDRO 15:08 → ICU 15:44 → MEDTELE 12-15 20:25
PROVIDERS: ADMIT Internal Medicine; ATTEND Internal Medicine